=== PATIENT | male | born 1995 | race Hispanic/Latino ===

== ENCOUNTER 2019-08-22 16:22 | Emergency (ER) | payer OTHER ==
[2019-08-22] MEDS ORDERED: NA CHLORIDE 0.9% 2,000 ML ONE (17:37)
[2019-08-22] MEDS ORDERED: VANCOMYCIN 1 GM/VIAL ONE ×2 (17:37→17:39)
[2019-08-22] MEDS ORDERED: NA CHLORIDE 0.9% 250 ML ONE (17:37)
[2019-08-22 17:48] LABS: Absolute Lymphocytes (CBC) 1.4 K/uL (0.7-4.9); Basophils % 1.3 % (0-1.3); Hematocrit 34.2 % (39.6-49.0); Lymphocytes % 20.8 % (15.3-44.8); MPV 7.8 fL (7.6-11.3); RBC Red Blood Cell Count 3.76 M/uL (4.33-5.43)
[2019-08-22 17:51] LABS: Protime INR 1.15
[2019-08-22 18:11] LABS: ALT/SGPT 26 U/L (12-78); AST/SGOT 15 U/L (15-37); Albumin 2.4 g/dL (3.4-5.0); Alkaline Phosphatase 75 U/L (45-117); BUN Blood Urea Nitrogen 7 mg/dL (7-18); Bicarbonate 29 mmol/L (21-32); Bilirubin Direct < 0.1 mg/dL (0-0.2); Bilirubin Total 0.3 mg/dL (0.2-1.0); CKMB Creatine Kinase MB < 1.0 ng/mL (0.3-3.6); Creatine Phosphokinase 87 U/L (39-308); Glucose Level 91 mg/dL (74-106); Lipase 36 U/L (73-393); Potassium 3.8 mmol/L (3.5-5.1); Protein, Total 7.1 g/dL (6.4-8.2); Sodium Level 141 mmol/L (136-145)
--- NOTE | 2019-08-22 19:08 | EDPHYS ---
Physician Documentation [facility] Name: Donato Anderson Age: 24 yrs Sex: Male : 1995 Arrival Date: 08/22/2019 Time: 16:34 Bed 23 Private MD: ED Physician Lito Trejo HPI: 08/22 17:23 This 24 yrs old Male presents to ER via Ambulatory with complaints of Leg snw Swelling. 17:23 The patient presents with tenderness, redness. The complaints affect the right leg. snw Context: The problem was sustained at home, resulted from an unknown cause, the patient can partially bear weight, must have assistance, generally/morbidly obese. Associated signs and symptoms: Pertinent positives: fever. Treatment prior to arrival includes: antibiotics x 2 weeks. Severity of symptoms: At their worst the symptoms were moderate. The patient has experienced similar episodes in the past. The patient has been recently seen by a physician: the patient's primary care provider, Dr. Turner. Historical: - Allergies: 16:49 No Known Allergies; aj1 - Home Meds: 16:49 None [Active]; aj1 - PMHx: 16:49 Asthma; aj1 - PSHx: 16:49 None; aj1 - Immunization history:: Adult Immunizations up to date. - Social history:: Smoking status: Patient/guardian denies using tobacco. - Ebola Screening: : Patient denies travel to an Ebola-affected area in the 21 days before illness onset. ROS: 17:22 Constitutional: Negative for fever, chills, and weight loss, Eyes: Negative for injury, snw pain, redness, and discharge, ENT: Negative for injury, pain, and discharge, Neck: Negative for injury, pain, and swelling, Cardiovascular: Negative for chest pain, palpitations, and edema, Respiratory: Negative for shortness of breath, cough, wheezing, and pleuritic chest pain, Abdomen/GI: Negative for abdominal pain, nausea, vomiting, diarrhea, and constipation, Back: Negative for injury and pain, : Negative for injury, bleeding, discharge, and swelling, MS/Extremity: Negative for injury and deformity, Neuro: Negative for headache, weakness, numbness, tingling, and seizure, Psych: Negative for depression, anxiety, suicide ideation, homicidal ideation, and hallucinations. 17:22 Skin: Positive for cellulitis, of the lateral aspect of right calf, right calf, medial aspect of right calf and right serra. Exam: 17:18 Constitutional: This is a well developed, well nourished patient who is awake, alert, snw and in no acute distress. Head/Face: Normocephalic, atraumatic. Eyes: Pupils equal round and reactive to light, extra-ocular motions intact. Lids and lashes normal. Conjunctiva and sclera are non-icteric and not injected. Cornea within normal limits. Periorbital areas with no swelling, redness, or edema. ENT: Nares patent. No nasal discharge, no septal abnormalities noted. Tympanic membranes are normal and external auditory canals are clear. Oropharynx with no redness, swelling, or masses, exudates, or evidence of obstruction, uvula midline. Mucous membranes moist. upper lip mildly chapped Neck: Trachea midline, no thyromegaly or masses palpated, and no cervical lymphadenopathy. Supple, full range of motion without nuchal rigidity, or vertebral point tenderness. No Meningismus. Chest/axilla: Normal chest wall appearance and motion. Nontender with no deformity. No lesions are appreciated. Cardiovascular: Regular rate and rhythm with a normal S1 and S2. No gallops, murmurs, or rubs. Normal PMI, no JVD. No pulse deficits. Respiratory: Lungs have equal breath sounds bilaterally, clear to auscultation and percussion. No rales, rhonchi or wheezes noted. No increased work of breathing, no retractions or nasal flaring. Abdomen/GI: Soft, non-tender, with normal bowel sounds. No distension or tympany. No guarding or rebound. No evidence of tenderness throughout. Back: No spinal tenderness. No costovertebral tenderness. Full range of motion. MS/ Extremity: Pulses equal, no cyanosis. Neurovascular intact. Full, normal range of motion. Neuro: Awake and alert, GCS 15, oriented to person, place, time, and situation. Cranial nerves II-XII grossly intact. Motor strength 5/5 in all extremities. Sensory grossly intact. Cerebellar exam normal. Normal gait. Psych: Awake, alert, with orientation to person, place and time. Behavior, mood, and affect are within normal limits. 17:18 Skin: Appearance: normal except for affected area, cellulitis, that is moderate, well demarcated, on the lateral aspect of right calf, right calf, medial aspect of right calf and right serra, failed outpatient therapy. Vital Signs: 16:49 BP 107 / 76; Pulse 71; Resp 24; Temp 98.2; Pulse Ox 95% on R/A; Weight 206.38 kg (R); aj1 Height 5 ft. 6 in. (167.64 cm) (R); 17:09 BP 140 / 60; Pulse 75; Resp 20; Pulse Ox 95% on R/A; mh5 18:00 BP 110 / 47; Pulse 71; Resp 20; Pulse Ox 96% on R/A; rv 18:30 BP 110 / 49; Pulse 59; Resp 21; Pulse Ox 96% on R/A; rv 19:21 BP 118 / 94; Pulse 64; Resp 19; Temp 98(O); Pulse Ox 100% ; rv 16:49 Body Mass Index 73.44 (206.38 kg, 167.64 cm) aj1 MDM: 17:02 Patient medically screened. snw 18:18 Data reviewed: vital signs, nurses notes. Data reviewed: lab test result(s). snw Counseling: I had a detailed discussion with the patient and/or guardian regarding: the historical points, exam findings, and any diagnostic results supporting the discharge/admit diagnosis, lab results, radiology results. ED course: Pharmacy contacted - Pt finished Bactrim and Keflex. 08/22 17:10 Order name: Wound Culture 08/22 17:10 Order name: Basic Metabolic Panel; Complete Time: 18:12 08/22 17:10 Order name: Blood Culture Adult (2) rv 08/22 17:10 Order name: CBC with Diff; Complete Time: 18:03 08/22 17:10 Order name: Ckmb; Complete Time: 18:12 08/22 17:10 Order name: CPK; Complete Time: 18:12 08/22 17:10 Order name: Lactate; Complete Time: 18:45 08/22 17:10 Order name: LFT's; Complete Time: 18:12 08/22 17:10 Order name: Lipase; Complete Time: 18:12 08/22 17:10 Order name: Procalcitonin; Complete Time: 19:04 08/22 17:10 Order name: Protime (+inr); Complete Time: 18:26 rv 08/22 17:10 Order name: Urine Microscopic Only rv 08/22 17:10 Order name: Chest Single View XRAY; Complete Time: 19:46 rv 08/22 19:13 Order name: Urine Dipstick--Ancillary (enter results); Complete Time: 19:36 mo 08/22 17:10 Order name: Accucheck; Complete Time: 17:50 rv 08/22 17:10 Order name: Cardiac monitoring; Complete Time: 17:50 rv 08/22 17:10 Order name: EKG - Nurse/Tech; Complete Time: 17:50 rv 08/22 17:10 Order name: IV Saline Lock - Large Bore; Complete Time: 17:50 rv 08/22 17:10 Order name: Labs collected and sent; Complete Time: 17:50 rv 08/22 17:10 Order name: O2 Per Protocol; Complete Time: 17:50 rv 08/22 17:10 Order name: O2 Sat Monitoring; Complete Time: 17:50 rv 08/22 17:54 Order name: Labs - recollect needed; Complete Time: 18:36 bd Administered Medications: 17:49 Drug: vancoMYCIN 1.5 grams Route: IVPB; Rate: calculated rate; Site: right forearm; rv 19:48 Follow up: IV Status: Completed infusion rv 17:57 CANCELLED (Duplicate Order): NS 0.9% (30 ml/kg) 30 ml/kg IV at bolus once; Sepsis snw Protocol 18:00 Drug: NS 0.9% 2000 ml Route: IV; Rate: 1 bolus; Site: right forearm; rv 19:48 Follow up: IV Status: Completed infusion rv 19:18 Drug: Tetanus-Diphtheria Toxoid Adult 0.5 ml {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 Exp: rv 01/22/2020. Lot #: [id number]. } Route: IM; Site: left deltoid; 19:49 Follow up: Response: No adverse reaction rv 19:20 Drug: Clindamycin 300 mg Route: PO; rv 19:50 Follow up: Response: No adverse reaction rv 19:20 CANCELLED (Duplicate Order): Clindamycin 300 mg PO once rv Disposition: 08/23 07:24 Co-signature as Attending Physician, Lito Trejo MD I agree with the assessment and jarrod plan of care. Disposition: 08/22/19 19:06 Discharged to Home. Impression: Cellulitis of right lower limb. - Condition is Stable. - Discharge Instructions: Cellulitis, Adult, VIS, Tetanus, Diphtheria (Td) - CDC, Heat Therapy. - Prescriptions for Clindamycin HCl 300 mg Oral Capsule - take 1 capsule by ORAL route every 6 hours for 10 days; 40 capsule. - Medication Reconciliation Form, Thank You Letter, Antibiotic Education, Prescription Opioid Use form. - Follow up: Private Physician; When: 1 - 2 days; Reason: Recheck today's complaints, Continuance of care, Re-evaluation by your physician. Follow up: Emergency Department; When: As needed; Reason: Worsening of condition. Signatures: Dispatcher [employer] EDMS Roma Hare Angela, RN RN ajLito De MD MD cha Therrien, Shelly, SHANK INSPECTOR-C SHANK INSPECTOR-Csnw Melchor James RN RN rv Corrections: (The following items were deleted from the chart) 08/22 17:26 17:18 Constitutional: This is a well developed, well nourished patient who is awake, snw alert, and in no acute distress. Head/Face: Normocephalic, atraumatic. Eyes: Pupils equal round and reactive to light, extra-ocular motions intact. Lids and lashes normal. Conjunctiva and sclera are non-icteric and not injected. Cornea within normal limits. Periorbital areas with no swelling, redness, or edema. ENT: Nares patent. No nasal discharge, no septal abnormalities noted. Tympanic membranes are normal and external auditory canals are clear. Oropharynx with no redness, swelling, or masses, exudates, or evidence of obstruction, uvula midline. Mucous membranes moist. Neck: Trachea midline, no thyromegaly or masses palpated, and no cervical lymphadenopathy. Supple, full range of motion without nuchal rigidity, or vertebral point tenderness. No Meningismus. Chest/axilla: Normal chest wall appearance and motion. Nontender with no deformity. No lesions are appreciated. Cardiovascular: Regular rate and rhythm with a normal S1 and S2. No gallops, murmurs, or rubs. Normal PMI, no JVD. No pulse deficits. Respiratory: Lungs have equal breath sounds bilaterally, clear to auscultation and percussion. No rales, rhonchi or wheezes noted. No increased work of breathing, no retractions or nasal flaring. Abdomen/GI: Soft, non-tender, with normal bowel sounds. No distension or tympany. No guarding or rebound. No evidence of tenderness throughout. Back: No spinal tenderness. No costovertebral tenderness. Full range of motion. MS/ Extremity: Pulses equal, no cyanosis. Neurovascular intact. Full, normal range of motion. Neuro: Awake and alert, GCS 15, oriented to person, place, time, and situation. Cranial nerves II-XII grossly intact. Motor strength 5/5 in all extremities. Sensory grossly intact. Cerebellar exam normal. Normal gait. Psych: Awake, alert, with orientation to person, place and time. Behavior, mood, and affect are within normal limits. snw 17:57 17:10 NS 0.9% (30 ml/kg) 30 ml/kg IV at bolus once; Sepsis Protocol ordered. rv snw 17:57 17:50 NS 0.9% (30 ml/kg) 30 ml/kg IV at bolus once; Sepsis Protocol given. rv snw 17:57 17:56 NS 0.9% (30 ml/kg) 30 ml/kg IV at bolus once; Sepsis Protocol ordered. snw snw 19:20 19:19 Clindamycin 300 mg PO once ordered. rv rv 19:51 19:06 08/22/2019 19:06 Discharged to Home. Impression: Cellulitis of right lower limb. rv Condition is Stable. Forms are Medication Reconciliation Form, Thank You Letter, Antibiotic Education, Prescription Opioid Use. Follow up: Private Physician; When: 1 - 2 days; Reason: Recheck today's complaints, Continuance of care, Re-evaluation by your physician. Follow up: Emergency Department; When: As needed; Reason: Worsening of condition. snw
[2019-08-22] MEDS ORDERED: CLINDAMYCIN HCL 150 MG CAP ONE (19:16)
[2019-08-22] MEDS ORDERED: TETANUS & DIPHTHERIA TOX,ADULT 0.5 ML VIAL ONE (19:16)
[2019-08-22] MEDS ORDERED: NA CHLORIDE 0.9% 1,000 ML ONE (19:27)
[2019-08-22 19:32] LABS: Urine Blood NEGATIVE (NEG); Urine Glucose NEGATIVE (NEG); Urine Protein NEGATIVE (NEG); Urine Specific Gravity 1.015 (1.005-1.030); Urine pH 7.5 (5.0-7.0)
--- NOTE | 2019-08-22 19:39 | RAD REPORT ---
EXAM DESCRIPTION: RAD - Chest Single View - 08/22/2019 6:01 pm CLINICAL HISTORY: Cellulitis, shortness of breath COMPARISON: May 2016 TECHNIQUE: AP portable chest image was obtained 1745 hours . FINDINGS: Lung volumes are low. Portable technique, shallow inspiration and large body habitus all c ontribute to limit the examination. An acute lung parenchymal process is not seen. Heart and vasculat ure are normal. No measurable pleural effusion and no pneumothorax. No acute bony abnormality seen. N o acute aortic findings suspected. IMPRESSION: Limited chest examination without acute cardiopulmonary finding.
--- NOTE | 2019-08-22 19:52 | ER ---
Nurse's Notes [facility] Name: Donato Andesron Age: 24 yrs Sex: Male : 1995 Arrival Date: 08/22/2019 Time: 16:34 Bed 23 Private MD: Diagnosis: Cellulitis of right lower limb Presentation: 08/22 16:45 Presenting complaint: Patient states: "About 3 weeks ago, I went to Dr. Turner for aj1 redness in my foot and she gave me antibiotics, when I saw her again last week she said that I needed to come to the emergency room" Denies fever. Transition of care: patient was not received from another setting of care. Onset of symptoms was 2018. Risk Assessment: Do you want to hurt yourself or someone else? Patient reports no desire to harm self or others. Initial Sepsis Screen: Does the patient meet any 2 criteria? No. Patient's initial sepsis screen is negative. Does the patient have a suspected source of infection? Yes: Skin breakdown/wound. Care prior to arrival: None. 16:45 Method Of Arrival: Ambulatory aj 16:45 Acuity: NEFTALY 3 aj1 Triage Assessment: 16:49 General: Appears in no apparent distress. comfortable, Behavior is calm, cooperative, aj1 appropriate for age. Pain: Pain currently is 8 out of 10 on a pain scale. Neuro: Level of Consciousness is awake, alert, obeys commands. Cardiovascular: Patient's skin is warm and dry. Respiratory: Airway is patent Respiratory effort is even, unlabored, Respiratory pattern is regular, symmetrical. Historical: - Allergies: 16:49 No Known Allergies; aj1 - Home Meds: 16:49 None [Active]; aj1 - PMHx: 16:49 Asthma; aj1 - PSHx: 16:49 None; aj1 - Immunization history:: Adult Immunizations up to date. - Social history:: Smoking status: Patient/guardian denies using tobacco. - Ebola Screening: : Patient denies travel to an Ebola-affected area in the 21 days before illness onset. Screenin:25 Abuse screen: Denies threats or abuse. Denies injuries from another. Nutritional rv screening: No deficits noted. Tuberculosis screening: No symptoms or risk factors identified. Fall Risk None identified. Assessment: 18:25 General: Appears in no apparent distress. comfortable, Behavior is calm, cooperative. rv Pain: Complains of pain in right leg. Neuro: Level of Consciousness is awake, alert, obeys commands, Oriented to person, place, time, situation. Cardiovascular: Patient's skin is warm and dry. Respiratory: Airway is patent. GI: No signs and/or symptoms were reported involving the gastrointestinal system. : No signs and/or symptoms were reported regarding the genitourinary system. EENT: No signs and/or symptoms were reported regarding the EENT system. Derm: Skin with poor turgor Skin is clammy, dry, Skin temperature is warm. Musculoskeletal: Swelling present in right leg. Vital Signs: 16:49 BP 107 / 76; Pulse 71; Resp 24; Temp 98.2; Pulse Ox 95% on R/A; Weight 206.38 kg (R); aj1 Height 5 ft. 6 in. (167.64 cm) (R); 17:09 BP 140 / 60; Pulse 75; Resp 20; Pulse Ox 95% on R/A; mh5 18:00 BP 110 / 47; Pulse 71; Resp 20; Pulse Ox 96% on R/A; rv 18:30 BP 110 / 49; Pulse 59; Resp 21; Pulse Ox 96% on R/A; rv 19:21 BP 118 / 94; Pulse 64; Resp 19; Temp 98(O); Pulse Ox 100% ; rv 16:49 Body Mass Index 73.44 (206.38 kg, 167.64 cm) aj1 ED Course: 16:34 Patient arrived in ED. am2 16:48 Triage completed. aj1 16:49 Arm band placed on Patient placed in an exam room. aj1 16:58 Saadia Kyle FNP-C is PHCP. snw 16:58 Lito Trejo MD is Attending Physician. snw 17:01 Melchor James, ANGEL is Primary Nurse. rv 17:09 Patient has correct armband on for positive identification. Bed in low position. Call mh5 light in reach. Side rails up X2. Adult w/ patient. Pulse ox on. NIBP on. 17:15 Inserted saline lock: 20 gauge in right forearm, using aseptic technique. Blood rv collected. 17:15 First set of blood cultures drawn. rv 17:31 Second set of blood cultures drawn by me. rv 18:02 Chest Single View XRAY In Process Unspecified. EDMS 18:11 Lab(s) recollected, by me, sent to lab. rv 18:30 No provider procedures requiring assistance completed. rv 19:50 IV discontinued, intact, bleeding controlled, No redness/swelling at site. Pressure rv dressing applied. 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 Exp: rv 01/22/2020. Lot #: [id number]. } Route: IM; Site: left deltoid; 19:49 Follow up: Response: No adverse reaction rv 19:20 Drug: Clindamycin 300 mg Route: PO; rv 19:50 Follow up: Response: No adverse reaction rv 19:20 CANCELLED (Duplicate Order): Clindamycin 300 mg PO once rv Outcome: 19:06 Discharge ordered by . snw 19:21 Discharged to home ambulatory, with family. rv 19:21 Condition: good 19:21 Discharge instructions given to patient, family, Instructed on discharge instructions, follow up and referral plans. medication usage, Demonstrated understanding of instructions, follow-up care, medications, wound care. 19:22 Prescriptions given X 1. rv 19:51 Patient left the ED. rv Signatures: Dispatcher [employer] EDSabrina Poole RN RN aj1 Saadia Kyle FNP-C [employer]-Radha Hinojosa Winsome Degroot Ronaldo, RN RN rv Corrections: (The following items were deleted from the chart) 17:56 17:50 NS 0.9% (30 ml/kg) 30 ml/kg IV at bolus in right forearm rv snw
[2019-08-22 19:54] LABS: Urine Bacteria <20 /HPF (NONE SEEN); Urine Culture Reflex Order NOT NEEDED; Urine RBC <5 /HPF (NONE SEEN)
[2019-08-22 21:05] VITALS: BP 118/94; TEMP 98; O2SAT 100
--- NOTE | 2019-08-23 12:22 | EKG ---
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
--- OUTSIDE RECORDS SUMMARY | 2019-08-28 21:46 | XMS REPORT ---
:1995 Author Organization [employer] Care Team Providers Name Role Phone Turner, Na Provider Role Unavailable Allergies, Adverse Reactions, Alerts Substance Reaction Event Type N.K.D.A. Info Not Available Non Drug Allergy Problems Problem Type Condition Code Onset Dates Condition Status Problem Acute non intractable tension-type G44.209 Active headache Problem Morning headache R51 Active Problem BMI 70 and over, adult Z68.45 Active Problem Dry eyes H04.123 Active Assessment Cellulitis of right leg L03.115 Active Problem Severe major depression F32.2 Active Assessment Paresthesia of skin R20.2 Active Assessment Anesthesia of skin R20.0 Active Problem Paresthesia of skin R20.2 Active Problem Blood tests for routine general Z00.00 Active physical examination Problem Snoring R06.83 Active Problem Adult general medical exam Z00.00 Active Problem Essential hypertension I10 Active Problem Vitamin D deficiency E55.9 Active Problem Allergic rhinitis, seasonal J30.2 Active Problem Morbid obesity E66.01 Active Problem Depression, unspecified depression F32.9 Active type Problem Daytime somnolence R40.0 Active Problem Obstructive sleep apnea G47.33 Active Problem Chronic fatigue R53.82 Active Assessment BMI 70 and over, adult Z68.45 Active Problem Depression with anxiety F41.8 Active Problem Obstructive sleep apnea syndrome G47.33 Active Medications Medication Code Code Instructions Start End Status Dosage System Date Date Celexa [facility] 70886437059 20 MG Orally Active 1 tablet Once a day at bedtime Ranitidine HCl ND 04031679612 150 MG Orally Active 1 capsule Twice a day at bedtime Zyrtec Allergy ND 24454666127 10 MG Orally Active 1 tablet Once a day Multivitamin ND 47536491901 - Orally Active not Adult defined Wellbutrin SR ND 06927190949 100 MG Orally Active 1 tablet Once a day in am Keflex ND 65424778137 500 MG Orally Active 1 capsule every 12 hrs Saxenda ND 63330891165 18 MG/3ML Active not Subcutaneous defined Ergocalciferol NDC 11833160573 23671 UNIT Active 1 capsule Orally once a week x 12 weeks Ventolin HFA [facility] 73016240235 108 (90 Base) Dec 01, Active 2 puffs as MCG/ACT 2017 needed Inhalation every 6 hrs Lisinopril-Hydroc [facility] 00937739671 10-12.5 MG Active 1 tablet hlorothiazide Orally Once a day Bactrim DS [facility] 54554871998 800-160 MG Active 1 tablet Orally Twice a day Results No Known Results Summary Purpose eClinicalWorks Submission
== END 2019-08-22 19:51 | disposition home or self-care (01) ==
LOC: ER 16:22
DX: L03.115 Cellulitis of right lower limb (principal); Z23 Encounter for immunization
CPT/HCPCS: 96365; 93005; 87040 ×2; 87070; 85025; 80048; 36415; 82550; 87205; 85610; 80076; 83605; 82553; 83690; 84145; 71045; 90471; 90714; 99284; 96366; J7030 ×3; 81003; 81015

== ENCOUNTER 2020-06-20 15:10 | Inpatient (IN) | payer OTHER ==
--- OUTSIDE RECORDS SUMMARY | 2020-06-20 15:13 | XMS REPORT | Continuity of Care Document ---
:1995 Author Organization [facility] t Address [address] [place] [address] Care Team Providers Name Role Phone Unavailable Unavailable Unavailable Problems Condition Condition Condition Status Onset Resolution Last Treating Co mments Source Name Details Category Date Date Treatment Clinician Date Morbid Morbid Problem Active [facility] obesity obesity [facility] Clinics Morning Morning Problem Active [facility] headache headache [facility] Vitamin D Vitamin D Problem Active [facility] deficiency deficiency Kaitlynn kes - Memoria l [facility] Adult Adult Problem Active [facility] general general [facility] medical medical Memoria exam exam l [facility] Chronic Chronic Problem Active [facility] fatigue fatigue [facility] Clinics Obstructiv Obstructiv Problem Active [facility] e sleep e sleep [facility] - apnea apnea Memoria syndrome syndrome l [facility]ics Snoring Snoring Problem Active [facility]ics BMI 70 and BMI 70 and Problem Active [facility] over, over, [facility] - adult adult [facility]oria [facility] ent Clinics Acute non Acute non Problem Active [facility] intractabl intractabl Kaitlynn kes - e e Memoria tension-ty tension-ty l pe pe [facility] headache headache ent Clinics Daytime Daytime Problem Active [facility] somnolence somnolence Kaitlynn kes - Memoria l [facility] Allergic Allergic Problem Active [facility] rhinitis, rhinitis, Luke s - seasonal seasonal Memori a l [facility] Clinics Depression Depression Problem Active [facility] , , [facility] - unspecifie unspecifie Me moria d d l depression depression Ou tpati type type ent Clinics Depression Depression Problem Active [facility] with with [facility] - anxiety anxiety Memoria [facility] ent Clinics Essential Essential Problem Active [facility] hypertensi hypertensi Kaitlynn kes - on on [facility]oria [facility] ent Clinics Severe Severe Problem Active [facility] major major [facility] - depression depression Me moria l [facility] Clinics Dry eyes Dry eyes Problem Active [facility] Paresthesi Paresthesi Problem Active [facility] a of skin a of skin Luke s - Memoria l [facility] Clinics Venous Venous Problem Active [facility] stasis stasis [facility]ukes - dermatitis dermatitis Me moria of right of right l lower lower [facility] extremity extremity ent Clinics Peripheral Peripheral Problem Active [facility] vascular vascular [facility] - disease disease Memoria l [facility] Cough Cough Diagnosis Active [facility] Allergies, Adverse Reactions, Alerts This patient has no known allergies or adverse reactions. Medications Ordered Filled Start Stop Current Ordering Indication Dosage Frequency Signature Comments Components Source Medication Medication Date Date Medication? Clinician (SIG) Name Name Wellbutrin Wellbutrin Yes Maile [address] [facility] [address] SR SR 7-18 [place] in am [facility] - 00:00: Memoria 00 l [facility] Ergocalcife Ergocalcife Yes Maile [address] [address] rol rol 2-28 [place] [facility] - 00:00: Memoria 00 l [facility] Ventolin Ventolin Yes Maile [address] HFA HFA 2-13 [place] needed [facility] - 00:00: Memoria 00 l [facility] Clinics Celexa Celexa Yes Maile [address] [facility] [place] at bedtime [facility] - [facility] Yes Maile [address] [facility] Allergy [facility]ergy [place] [facility] l [facility] Multivitami Multivitami Yes Maile not [facility] n Adult n Adult [place] defined [facility] Yes Maile not [facility] [place] defined [facility] - [facility] Lisinopril- Lisinopril- Yes Maile [address] [facility] [address] Hydrochloro Hydrochloro [place] [facility] - thiazide thiazide [facility] Ranitidine Ranitidine Yes Maile [address] [address] HCl HCl [place] at bedtime [facility] - [facility] ent [facility] Immunizations Ordered Filled Immunization Date Status Comments [facility] e Immunization Name Name Flucelvax - Flucelvax - 2018-12-[address] [facility] - multidose vial multidose vial 00:00:00 [facility] Outpatient Clinics Procedures This patient has no known procedures. Encounters Start End Encounter Admission Attending Care Care Encounter Source Date/Time Date/Time Type Type Clinicians Facility Department ID 2020-04-24 2020-04-24 [facility] [id number] 14:00[facility]00 14:00:00 [facility] Medicine Outpati ent Clinics 2020-04-23 2020-04-23 [facility] [id number] [address] 16:20:00 16:20:00 [facility] Medicine Outpati ent Clinics 2020-04-23 2020-04-23 [facility] [id number] 09:55:00 09:55:00 [facility] Medicine Outpati ent Clinics 2020-04-13 2020-04-13 [facility] [id number] 15:15:00 15:15:00 [place] [facility] Medicine Outpati ent Clinics 2020-04-09 2020-04-09 [facility] [id number] 14:00:00 14:00:00 [place] [facility] Medicine Outpati ent Clinics 2020-02-24 2020-02-24 [facility] [id number] [address] 16:06:00 16:06:00 [place] [facility] Medicine Outpati ent Clinics 2019-08-31 2019-08-31 [facility] [id number] [address] 11:40:00 11:40:00 [place] [facility] Medicine Outpati ent Clinics 2019-08-12 2019-08-12 [facility] [id number] 08:00:00 08:00:00 [place] [facility] Medicine Outpati ent Clinics 2019-08-02 2019-08-02 [facility] [id number] 14:20:00 14:20:00 t [place] [facility] Medicine Outpati ent Clinics 2019-07-25 2019-07-25 [facility] [id number] 14:20:00 14:20:00 [place] [facility] Medicine Outpati ent Clinics 2019-05-05 2019-05-05 [facility] [id number] 13[facility]20:00 13:20:00 t [place] [facility] Medicine Outpati ent Clinics 2019-01-31 2019-01-31 [facility] [id number] [address] 15:00:00 15:00:00 t [place] [facility] Medicine Outpati ent Clinics 2018-12-16 2018-12-16 [facility] [id number] 14[facility]15:00 14:15:00 t [place] [facility] Medicine Outpati ent Clinics 2018-11-01 2018-11-01 [facility] [id number] 09:00:00 09:00:00 t [place] [facility] Medicine Outpati ent Clinics 2018-06-18 2018-06-18 [facility] [id number] 14:40:00 14:40:00 t [place] [facility] Medicine Outpati ent Clinics 2018-04-19 2018-04-19 [facility] [id number] 10:30:00 10:30:00 t [place] [facility] Medicine Outpati ent Clinics Results This patient has no known results.
--- OUTSIDE RECORDS SUMMARY | 2020-06-20 15:14 | XMS REPORT ---
:1995 Author Organization [employer] Care Team Providers Name Role Phone Maile Hairstno Provider Role Unavailable Allergies No Known Allergies Problems Problem Type Condition Code Onset Dates Condition Statu s Problem Morning headache R51 Active Problem Blood tests for routine general Z00.00 Active physical examination Problem Snoring R06.83 Active Problem Venous stasis dermatitis of right I87.2 Active lower extremity Problem Morbid obesity E66.01 Active Problem Paresthesia of skin R20.2 Active Assessment Cough R05 Active Problem Peripheral vascular disease I73.9 Active Problem Adult general medical exam Z00.00 A ctive Problem Essential hypertension I10 Activ e Problem Dry eyes H04.123 Active Problem Severe major depression F32.2 Acti ve Problem Obstructive sleep apnea G47.33 Acti ve Problem Depression with anxiety F41.8 Acti ve Problem Vitamin D deficiency E55.9 Active Problem Allergic rhinitis, seasonal J30.2 Active Problem Chronic fatigue R53.82 Active Problem Obstructive sleep apnea syndrome G47.33 Active Problem Depression, unspecified depression F32.9 Active type Problem Acute non intractable tension-type G44.209 Active headache Problem Daytime somnolence R40.0 Active Problem BMI 70 and over, adult Z68.45 Activ e Medications Medication Code Code Instructions Start End Status Dosage System Date Date Celexa [facility] 75148315689 20 MG Orally Active 1 table t Once a day at bedtime Ergocalciferol [facility] 15855743304 00971 UNIT Active 1 capsule Orally once a week x 12 weeks Multivitamin [facility] 38030899630 - Orally Active not Adult defined Lisinopril-Hydroc ND 54926249039 20-25 MG Orally Ac tive 1 tablet hlorothiazide Once a day Ranitidine HCl ND 77377023462 150 MG Orally Active 1 capsule Twice a day at bedtime Ventolin HFA [facility] 70506180354 108 (90 Base) Dec 01, Active 2 puffs as MCG/ACT 2018 needed Inhalation every 6 hrs Saxenda [facility] 30867628817 18 MG/3ML Active not Subcutaneous defined Zyrtec Allergy [facility] 45293766809 10 MG Orally Active 1 tablet Once a day Wellbutrin SR [facility] 20559459718 100 MG Orally Active 1 tablet Once a day in am Results No Known Results Summary Purpose [employer]Works Submission
--- OUTSIDE RECORDS SUMMARY | 2020-06-20 15:14 | XMS REPORT ---
:1995 Author Organization [employer] Care Team Providers Name Role Phone Turner, Na Provider Role Unavailable Allergies No Known Allergies Problems Problem Type Condition Code Onset Dates Condition Statu s Problem Morning headache R51 Active Problem Blood tests for routine general Z00.00 Active physical examination Problem Snoring R06.83 Active Problem Venous stasis dermatitis of right I87.2 Active lower extremity Problem Morbid obesity E66.01 Active Problem Paresthesia of skin R20.2 Active Problem Peripheral vascular disease I73.9 Active [...] and over, adult Z68.45 Activ e Medications No Known Medications Results No Known Results Summary Purpose [employer]Works Submission
--- OUTSIDE RECORDS SUMMARY | 2020-06-20 15:14 | XMS REPORT ---
:1995 Author Organization [employer] Care Team Providers Name Role Phone Yovanny Maile Provider Role Unavailable Allergies, Adverse Reactions, Alerts [...] Problem Paresthesia of skin R20.2 Active Assessment Contact with and (suspected) Z20.828 Active exposure to other viral communicable diseases Problem Peripheral vascular disease I73.9 Active Problem [...] Start End Status Dosage System Date Date Saxenda [facility] 30888131171 18 MG/3ML Active not Subcutaneous defined Ergocalciferol [facility] 86197812428 89658 UNIT Active 1 capsule Orally once a week x 12 weeks Wellbutrin SR ND 20224824423 100 MG Orally Active 1 tablet Once a day in am Ventolin HFA [facility] 58283657912 108 (90 Base) Dec 01, Active 2 puffs as MCG/ACT 2018 needed Inhalation every 6 hrs Zyrtec Allergy [facility] 11694297119 10 MG Orally Active 1 tablet Once a day Lisinopril-Hydroc [facility] 89105514025 20-25 MG Orally Ac tive 1 tablet hlorothiazide Once a day Celexa [facility] 08697105596 20 MG Orally Active 1 table t Once a day at bedtime Ranitidine HCl [facility] 47357932740 150 MG Orally Active 1 capsule Twice a day at bedtime Multivitamin [facility] 46726182478 - Orally Active not Adult defined Results Name Result Date Reference Range Unit Abnormali ty Flag Inpatient Summary Purpose [employer]ClinicalWorks Submission
--- OUTSIDE RECORDS SUMMARY | 2020-06-20 15:14 | XMS REPORT ---
:1995 Author Organization [employer] Care Team Providers Name Role Phone Turner, Shaista Provider Role Unavailable Allergies, Adverse Reactions, Alerts Substance Reaction Event Type N.K.D.A. Info Not Available Non Drug Allergy Problems Problem Type Condition Code Onset Dates Condition Statu s Assessment BMI 70 and over, adult Z68.45 Activ e Assessment Allergic rhinitis, seasonal J30.2 Active Assessment Vitamin D deficiency E55.9 Active Assessment Obstructive sleep apnea syndrome G47.33 Active Assessment Lower extremity edema R60.0 Active Problem Acute non intractable tension-type G44.209 Active headache Assessment Venous stasis dermatitis of right I87.2 Active lower extremity Problem BMI 70 and over, adult Z68.45 Activ e Assessment Severe major depression F32.2 Acti ve Problem Morning headache R51 Active Problem Blood tests for routine general Z00.00 Active physical examination Problem Snoring R06.83 Active Problem Venous stasis dermatitis of right I87.2 Active lower extremity Problem Paresthesia of skin R20.2 Active Problem Morbid obesity E66.01 Active Problem Peripheral vascular disease I73.9 Active Assessment Essential hypertension I10 Activ e Problem Adult general medical exam Z00.00 A [...] Active type Problem Daytime somnolence R40.0 Active Medications Medication Code Code Instructions Start End Status Dosage System Date Date Zyrtec Allergy [facility] 52397471962 10 MG Orally Active 1 tablet Once a day Multivitamin [facility] 58227670146 - Orally Active not Adult defined Wellbutrin SR ND 22588623392 100 MG Orally Active 1 tablet Once a day in am Ergocalciferol ND 22557458407 93623 UNIT Active 1 capsule Orally once a week x 12 weeks Saxenda [facility] 93469181897 18 MG/3ML Active not Subcutaneous defined Celexa [facility] 92673936631 20 MG Orally Active 1 table t Once a day at bedtime Lisinopril-Hydroc [facility] 47316305433 20-25 MG Orally Ac tive 1 tablet hlorothiazide Once a day Ventolin HFA [facility] 66730757280 108 (90 Base) Dec 01, Active 2 puffs as MCG/ACT 2018 needed Inhalation every 6 hrs Ranitidine HCl [facility] 41648968549 150 MG Orally Active 1 capsule Twice a day at bedtime Results No Known Results Summary Purpose eClinicalWorks Submission
[2020-06-20 16:20] LABS: Absolute Lymphocytes (CBC) 1.1 K/uL (0.7-4.9); Basophils % 1.1 % (0-1.3); Hematocrit 32.4 % (39.6-49.0); MPV 9.2 fL (7.6-11.3); RBC Red Blood Cell Count 3.62 M/uL (4.33-5.43)
[2020-06-20 16:35] LABS: BUN Blood Urea Nitrogen 10 mg/dL (7-18); Bicarbonate 29 mmol/L (21-32); Glucose Level 93 mg/dL (74-106); Potassium 3.2 mmol/L (3.5-5.1); Sodium Level 138 mmol/L (136-145)
[2020-06-20] MEDS ORDERED: VANCOMYCIN/NS 1 gm 1 GM/250 ML BAG IVPB ONE (17:00)
--- NOTE | 2020-06-20 17:11 | EDPHYS ---
Physician Documentation [facility] Name: Donato Anderson Age: 25 yrs Sex: Male : 1995 Arrival Date: 06/20/2020 Time: 15:13 Bed 5 Private MD: Shaista Turner ED Physician Jin Heart HPI: 06/20 15:57 This 25 yrs old Male presents to ER via Ambulatory with complaints of Leg jr8 Swelling. 15:57 the patient presents with a swollen area of the right leg. Description: erythematous, jr8 swollen, warm. Onset: The symptoms/episode began/occurred gradually, 2 day(s) ago. Possible cause(s): unknown. Associated signs and symptoms: The patient has no apparent associated signs or symptoms. Modifying factors: the symptoms are alleviated by nothing, the symptoms are aggravated by nothing. Severity of symptoms: At their worst the symptoms were moderate, in the emergency department the symptoms are unchanged. The patient has not experienced similar symptoms in the past. The patient has been recently seen by a physician:. Patient seen by PCP and put on Abx for infected lower right leg. Stated that despite being on Abx continues to swell and mc . Historical: - Allergies: 15:29 No Known Allergies; ll1 - PMHx: 15:29 Asthma; ll1 15:29 Sleep Apnea; ll1 - PSHx: 15:29 None; ll1 - Immunization history:: Flu vaccine is up to date. - Social history:: Smoking status: Patient denies any tobacco usage or history of. Patient/guardian denies using alcohol, street drugs. ROS: 15:57 Eyes: Negative for injury, pain, redness, and discharge, ENT: Negative for injury, jr8 pain, and discharge, Neck: Negative for injury, pain, and swelling, Cardiovascular: Negative for chest pain, palpitations, and edema, Respiratory: Negative for shortness of breath, cough, wheezing, and pleuritic chest pain, Abdomen/GI: Negative for abdominal pain, nausea, vomiting, diarrhea, and constipation, Back: Negative for injury and pain, Neuro: Negative for headache, weakness, numbness, tingling, and seizure. 15:57 MS/extremity: Positive for erythema, pain, swelling, tenderness, warmth, of the right leg. Exam: 15:57 Eyes: Pupils equal round and reactive to light, extra-ocular motions intact. Lids and jr8 lashes normal. Conjunctiva and sclera are non-icteric and not injected. Cornea within normal limits. Periorbital areas with no swelling, redness, or edema. ENT: Nares patent. No nasal discharge, no septal abnormalities noted. Tympanic membranes are normal and external auditory canals are clear. Oropharynx with no redness, swelling, or masses, exudates, or evidence of obstruction, uvula midline. Mucous membranes moist. Neck: Trachea midline, no thyromegaly or masses palpated, and no cervical lymphadenopathy. Supple, full range of motion without nuchal rigidity, or vertebral point tenderness. No Meningismus. Cardiovascular: Regular rate and rhythm with a normal S1 and S2. No gallops, murmurs, or rubs. Normal PMI, no JVD. No pulse deficits. Respiratory: Lungs have equal breath sounds bilaterally, clear to auscultation and percussion. No rales, rhonchi or wheezes noted. No increased work of breathing, no retractions or nasal flaring. Abdomen/GI: Soft, non-tender, with normal bowel sounds. No distension or tympany. No guarding or rebound. No evidence of tenderness throughout. Back: No spinal tenderness. No costovertebral tenderness. Full range of motion. MS/ Extremity: Pulses equal, no cyanosis. Neurovascular intact. Full, normal range of motion. Neuro: Awake and alert, GCS 15, oriented to person, place, time, and situation. Cranial nerves II-XII grossly intact. Motor strength 5/5 in all extremities. Sensory grossly intact. Cerebellar exam normal. Normal gait. 15:57 Skin: cellulitis, that is moderate, confluent, well demarcated, on the right lower leg from the ankle extending to distal knee that is circumfrential . Vital Signs: 15:26 BP 143 / 67; Pulse 83; Resp 18; Temp 98.8; Pulse Ox 94% on R/A; Weight 272.16 kg; ll1 Height 5 ft. 6 in. (167.64 cm); Pain 6/10; 16:18 BP 120 / 73; Pulse 75; Resp 20; Pulse Ox 92% on R/A; jr10 18:34 BP 107 / 66; Pulse 85; Resp 18; Pulse Ox 95% on R/A; jr10 20:00 BP 125 / 78; Pulse 85; Resp 18; Pulse Ox 93% on R/A; 15:26 Body Mass Index 96.84 (272.16 kg, 167.64 cm) ll1 MDM: 15:40 Patient medically screened. 8 15:57 Data reviewed: vital signs, nurses notes, lab test result(s), radiologic studies, 8 ultrasound. Data interpreted: Pulse oximetry: on room air is 95 %. Interpretation: normal. Counseling: I had a detailed discussion with the patient and/or guardian regarding: the historical points, exam findings, and any diagnostic results supporting the discharge/admit diagnosis, lab results, radiology results, the need for further work-up and treatment in the hospital. 06/20 15:40 Order name: CBC with Diff; Complete Time: 16:28 [facility] 06/20 15:40 Order name: Basic Metabolic Panel; Complete Time: 16:40 [facility] 06/20 15:40 Order name: Blood Culture Adult (2) [facility] 06/20 15:40 Order name: Procalcitonin; Complete Time: 17:10 [facility] 06/20 15:45 Order name: US Extremity Venous Unilateral Ltd; Complete Time: 17:34 [facility] 06/20 15:40 Order name: IV; Complete Time: 16:05 [facility] Administered Medications: 16:14 Drug: Cefepime 1 grams Route: IVPB; Rate: 200 ml/hr; Infused Over: 30 mins; Site: right jr10 forearm; 17:30 Follow up: Response: No adverse reaction; IV Status: Completed infusion [facility] 20:18 Follow up: Response: No adverse reaction; IV Status: Completed infusion 17:16 Drug: Potassium Chloride 40 mEq Route: PO; [facility] 18:29 Follow up: Response: No adverse reaction [facility] 20:18 Follow up: Response: No adverse reaction 17:30 Drug: vancoMYCIN 1 grams Route: IVPB; Infused Over: 2 hrs; Site: right forearm; [facility] 20:18 Follow up: Response: No adverse reaction; IV Status: Completed infusion Disposition: 06/21 17:08 Co-signature as Attending Physician, Jin Heart MD I agree with the assessment and kdr plan of care. Disposition: 06/20/20 17:11 Hospitalization ordered by Teo Suresh for Inpatient Admission. Preliminary diagnosis is Cellulitis of right lower limb. - Bed requested for Telemetry/MedSurg (Inpatient). - Status is Inpatient Admission. wh - Condition is Stable. - Problem is new. - Symptoms have improved. Signatures: Dispatcher [employer] EDMS Jin Heart MD MD [facility] Francisco Barraza PA PA jr8 Marilou Ashraf, RN RN tl1 Cassie Washington, RN RN [place], Winsy Dusty David RN RN ll1 Kaitlin Tripp, RN RN jr10 Corrections: (The following items were deleted from the chart) 06/20 18:39 17:11 Hospitalization Ordered by Teo Suresh MD for Inpatient Admission. Preliminary hb diagnosis is Cellulitis of right lower limb. Bed requested for Telemetry/MedSurg (Inpatient). Status is Inpatient Admission. Condition is Stable. Problem is new. Symptoms have improved. jr8 19:25 18:39 06/20/2020 17:11 Hospitalization Ordered by Teo Suresh MD for Inpatient tl1 Admission. Preliminary diagnosis is Cellulitis of right lower limb. Bed requested for Telemetry/MedSurg (Inpatient). Status is Inpatient Admission. Condition is Stable. Problem is new. Symptoms have improved. hb 20:59 19:25 06/20/2020 17:11 Hospitalization Ordered by Teo Suresh MD for Inpatient Admission. Preliminary diagnosis is Cellulitis of right lower limb. Bed requested for Telemetry/MedSurg (Inpatient). Status is Inpatient Admission. Condition is Stable. Problem is new. Symptoms have improved. tl1
--- NOTE | 2020-06-20 17:11 | ER ---
Nurse's Notes [facility] Name: Donato Anderson Age: 25 yrs Sex: Male : 1995 Arrival Date: 06/20/2020 Time: 15:13 Bed 5 Private MD: Shaista Turner Diagnosis: Cellulitis of right lower limb Presentation: 06/20 15:26 Chief complaint: Patient states: RLE redness, pain, and swelling for 3 days. + chills, ll1 but no fever at home. Slight cough with N/V for 3 days. Last covid test negative.. Coronavirus screen: Client denies travel out of the [place] in the last 14 days. At this time, the client does not indicate any symptoms associated with coronavirus-19. The client reports previous COVID testing was negative. Initial Sepsis Screen: Does the patient meet any 2 criteria? No. Patient's initial sepsis screen is negative. Risk Assessment: Do you want to hurt yourself or someone else? Patient reports no desire to harm self or others. Onset of symptoms was June 18, 2020. 15:26 Method Of Arrival: Ambulatory 1 15:26 Acuity: NEFTALY 3 ll1 19:05 Ebola Screen: Patient negative for fever greater than or equal to 101.5 degrees wh Fahrenheit, and additional compatible Ebola Virus Disease symptoms Patient denies exposure to infectious person. Initial Sepsis Screen: Does the patient have a suspected source of infection? Yes: Skin breakdown/wound. Historical: - Allergies: 15:29 No Known Allergies; ll1 - PMHx: 15:29 Asthma; ll1 15:29 Sleep Apnea; ll1 - PSHx: 15:29 None; ll1 - Immunization history:: Flu vaccine is up to date. - Social history:: Smoking status: Patient denies any tobacco usage or history of. Patient/guardian denies using alcohol, street drugs. Screenin:00 Abuse screen: Denies threats or abuse. Denies injuries from another. Nutritional jr10 screening: No deficits noted. Tuberculosis screening: No symptoms or risk factors identified. Fall Risk No fall in past 12 months (0 pts). No secondary diagnosis (0 pts). IV access (20 points). Ambulatory Aid- None/Bed Rest/Nurse Assist (0 pts). Gait- Weak (10 pts.). Mental Status- Oriented to own ability (0 pts). Assessment: 16:00 General: Appears in no apparent distress. Behavior is calm, cooperative, appropriate jr10 for age. Pain: Complains of pain in lateral aspect of right calf, right calf, medial aspect of right calf and right serra Pain does not radiate. Pain began 2-3 days ago. Is continuous. Neuro: No deficits noted. Cardiovascular: No deficits noted. Denies chest pain, Edema is 2+ to right midcalf, right ankle, right foot and right toes Rhythm is regular. Respiratory: Reports cough that is dry, Airway is patent Respiratory effort is even, unlabored, Respiratory pattern is regular, symmetrical. GI: No deficits noted. No signs and/or symptoms were reported involving the gastrointestinal system. : No deficits noted. No signs and/or symptoms were reported regarding the genitourinary system. EENT: No deficits noted. No signs and/or symptoms were reported regarding the EENT system. Derm: Skin has blisters on to right lower leg with serosanguinous fluid drainage noted Skin is dry, Skin is red, Skin temperature is warm. Musculoskeletal: No deficits noted. No signs and/or symptoms reported regarding the musculoskeletal system. 16:34 Reassessment: US at bedside. jr10 19:05 General: Appears in no apparent distress. Behavior is calm, cooperative, appropriate wh for age. Pain: Complains of pain in right leg. Neuro: Level of Consciousness is awake, alert, obeys commands, Oriented to person, place, time, situation, Appropriate for age. Cardiovascular: Heart tones S1 S2. Respiratory: Airway is patent Respiratory effort is even, unlabored, Respiratory pattern is regular, symmetrical, Breath sounds are clear bilaterally. GI: Abdomen is round obese. : No signs and/or symptoms were reported regarding the genitourinary system. EENT: No signs and/or symptoms were reported regarding the EENT system. Derm: Skin is red. Musculoskeletal: Circulation, motion, and sensation intact. 20:17 Reassessment: Patient appears in no apparent distress at this time. No changes from previously documented assessment. Patient and/or family updated on plan of care and expected duration. Pain level reassessed. Patient is alert, oriented x 3, equal unlabored respirations, skin warm/dry/pink. Vital Signs: 15:26 BP 143 / 67; Pulse 83; Resp 18; Temp 98.8; Pulse Ox 94% on R/A; Weight 272.16 kg; ll1 Height 5 ft. 6 in. (167.64 cm); Pain 6/10; 16:18 BP 120 / 73; Pulse 75; Resp 20; Pulse Ox 92% on R/A; jr10 18:34 BP 107 / 66; Pulse 85; Resp 18; Pulse Ox 95% on R/A; jr10 20:00 BP 125 / 78; Pulse 85; Resp 18; Pulse Ox 93% on R/A; wh 15:26 Body Mass Index 96.84 (272.16 kg, 167.64 cm) ll1 ED Course: 15:13 Patient arrived in ED. mr 15:13 Shaista Turner MD is Private Physician. mr 15:28 Triage completed. ll1 15:30 Arm band placed on Patient placed in an exam room, on a stretcher. ll1 15:40 Francisco Barraza PA is PHCP. jr8 15:40 Jin Heart MD is Attending Physician. jr8 15:44 Kaitlin Tripp, ANGEL is Primary Nurse. jr10 16:00 Inserted saline lock: 20 gauge in right forearm, using aseptic technique. IV is patent, jr10 is intact, with good blood return, Flushed. 16:17 Patient has correct armband on for positive identification. Bed in low position. Call jr10 light in reach. Side rails up X2. Pulse ox on. NIBP on. 16:17 No provider procedures requiring assistance completed. jr10 17:09 US Extremity Venous Unilateral Ltd In Process Unspecified. EDMS 17:10 Teo Suresh MD is Hospitalizing Provider. jr8 18:51 Primary Nurse role handed off by Kaitlin Tripp, ANGEL 19:24 Report given to ANGEL Munoz. jr10 20:15 Tammy Armas is Primary Nurse. 20:19 Patient admitted, IV remains in place. Administered Medications: 16:14 Drug: Cefepime 1 grams Route: IVPB; Rate: 200 ml/hr; Infused Over: 30 mins; Site: right jr10 forearm; 17:30 Follow up: Response: No adverse reaction; IV Status: Completed infusion jr10 20:18 Follow up: Response: No adverse reaction; IV Status: Completed infusion 17:16 Drug: Potassium Chloride 40 mEq Route: PO; jr10 18:29 Follow up: Response: No adverse reaction jr10 20:18 Follow up: Response: No adverse reaction 17:30 Drug: vancoMYCIN 1 grams Route: IVPB; Infused Over: 2 hrs; Site: right forearm; jr10 20:18 Follow up: Response: No adverse reaction; IV Status: Completed infusion Outcome: 17:11 Decision to Hospitalize by Provider. jr8 18:39 Patient left the ED. 20:18 Admitted to Med/surg accompanied by tech, via stretcher, room 224, with chart, Report called to Gaby Escobedo RN 20:18 Condition: stable 20:18 Instructed on the need for admit. 20:59 Patient left the ED. Signatures: Dispatcher [employer] EDEmma Bass, RN Mariyln Linder mr Francisco Barraza PA PA jr8 Cassie Washington RN RN [facility], [facility] Dusty David RN ANGEL 1 Kaitlin Tripp RN RN jr10
[2020-06-20] MEDS ORDERED: POTASSIUM CL SA 10 MEQ TAB PO ONE (17:14)
--- NOTE | 2020-06-20 17:27 | RAD REPORT ---
EXAM DESCRIPTION: USExtcarmine Venous Uni Ltd06/20/2020 5:17 pm CLINICAL HISTORY: Right leg pain and swelling. COMPARISON: None. FINDINGS: Limited evaluation secondary body habitus. Right common femoral, superficial femoral, popliteal and right posterior tibial veins demonstrate pha sic signal. Portions of veins are compressible. IMPRESSION: No gross evidence of deep venous thrombosis involving the right lower extremity.
--- NOTE | 2020-06-20 18:48 | P.HP ---
Certification for Inpatient Patient admitted to: Inpatient With expected LOS: >2 Midnights Practitioner: I am a practitioner with admitting privileges, knowledge of patient current condition, hospital course, and medical plan of care. Services: Services provided to patient in accordance with Admission requirements found in Title 42 Section 412.3 of the Code of Federal Regulations Patient History Date of Service: 06/20/20 Primary Care Provider: Dr. Turner Reason for admission: RLE cellulitis, failed outpatient therapy History of Present Illness: Morbidly obese 25-year-old presents to the ED with 2 days of progressively worsening right lower leg swelling, redness, and burning pain. He reports his mother 1st noticed this 2 days ago. He states he took an antibiotic, but is unclear what the name was. I spoke with his mother on the phone and she stated that it was penicillin from [place], left over from 3 months ago. He reports the pain is a burning sensation and worse in his posterior upper calf. He states this is the 1st skin infection that he has had like this. He reports no past medical history, no past surgical history. No recent hospitalizations. No fevers/chills, no shortness of breath, no chest pain, and no abdominal pain, no change in urinary/bowel habits. In the ED lab work was notable for mild hypokalemia (3.2) and an elevated pro calcitonin at 3.11, lower extremity ultrasound was negative for DVT. He was given a dose of IV vancomycin. Allergies No Known Allergies Allergy (Unverified 06/19/16 03:31) Home medications list reviewed: Yes - Past Medical/Surgical History Past Medical History: Patient denies medical history Past Surgical History: Patient denies surgical history - Family History Family History: Reviewed- Non-Contributory - Social History Smoking Status: Never smoker Alcohol use: No CD- Drugs: No Review of Systems 10-point ROS is otherwise unremarkable Physical Examination - Physical Exam General: Alert, In no apparent distress, Obese HEENT: PERRLA, Mucous membr. moist/pink, EOMI, Sclerae nonicteric Neck: Supple, No LAD Respiratory: Clear to auscultation bilaterally, Normal air movement Cardiovascular: Regular rate/rhythm, Normal S1 S2 Gastrointestinal: Soft and benign, Non-distended, No tenderness Integumentary: Erythema (Right lower extremity up to knee), Warmth, Other (Skin with appearance of some venous stasis, very shallow skin breaks, no ulcerations. Positive induration along his posterior calf) Neurological: Normal speech, Normal affect - Studies Laboratory Data (last 24 hrs) 06/20/20 16:00: Sodium 138, Potassium 3.2 L, BUN 10, Creatinine 0.86, Glucose 93 06/20/20 16:00: WBC 8.5, Hgb 10.9 L, Hct 32.4 L, Plt Count 268 Assessment and Plan - Advance Directives Does patient have a Living Will: No Does patient have a Durable POA for Healthcare: No - Code Status/Comfort Care Code Status Assessed: Yes Code Status: Full Code Physician Review Additional Text: RLE cellulitis, ? Failed outpatient antibiotics -SIRS 0/4, the patient does not appear septic -significant erythema, warmth, induration, and tenderness from knee to the foot. -difficulty hearing patient's mother over the phone, but sounded like the patient took 1 dose of penicillin at home yesterday -no significant risk factor for MRSA, no abscess on exam -will treat with IV Ancef, gentle IV fluids overnight Time Spent Managing Pts Care (In Minutes): 45
[2020-06-20] MEDS ORDERED: ACETAMINOPHEN 500 MG TAB PO PRN (21:35)
[2020-06-20] MEDS ORDERED: MORPHINE 2 MG/ML SYR IV PRN (21:35)
[2020-06-20] MEDS: NA CHLORIDE 0.9% 1,000 ML IV SCH (22:51)
[2020-06-21] MEDS ORDERED: CEFAZOLIN 2 GM in NA CHLORIDE 0.9% 100 ML IVPB SCH (01:00)
[2020-06-21] MEDS ORDERED: CEFAZOLIN SODIUM 1 GM/VIAL ONE (01:40)
[2020-06-21] MEDS: CEFAZOLIN/SWI 2gm 2 GM/20 ML SYR IV SCH ×3 (01:49→17:05)
[2020-06-21 03:14] VITALS: BMI 80.5
[2020-06-21 04:34] LABS: Absolute Lymphocytes (CBC) 1.3 K/uL (0.7-4.9); Basophils % 0.7 % (0-1.3); Hematocrit 33.1 % (39.6-49.0); Lymphocytes % 16.8 % (15.3-44.8); MPV 9.3 fL (7.6-11.3); RBC Red Blood Cell Count 3.72 M/uL (4.33-5.43)
[2020-06-21 04:59] LABS: BUN Blood Urea Nitrogen 10 mg/dL (7-18); Bicarbonate 29 mmol/L (21-32); Glucose Level 81 mg/dL (74-106); Potassium 3.5 mmol/L (3.5-5.1); Sodium Level 138 mmol/L (136-145)
[2020-06-21] MEDS: ENOXAPARIN 40 MG/0.4 ML SQ SCH (09:23)
[2020-06-21] MEDS: NA CHLORIDE 0.9% 1,000 ML IV SCH ×2 (09:24→17:05)
--- NOTE | 2020-06-21 17:25 | P.PN ---
Subjective Date of Service: 06/21/20 Primary Care Provider: Dr. Turner Chief Complaint: RLE cellulitis, failed outpatient therapy mild improvement Review of Systems 10-point ROS is otherwise unremarkable Physical Examination - Vital Signs Temperature: 97.6 F Blood Pressure: 126/77 Pulse: 73 Respirations: 19 Pulse Ox (%): 97 - Physical Exam General: Alert, In no apparent distress, Obese HEENT: Sclerae nonicteric Neck: No LAD Respiratory: Clear to auscultation bilaterally, Normal air movement Cardiovascular: Regular rate/rhythm, Normal S1 S2, Edema (RLE 3+ to knee) Gastrointestinal: Soft and benign, Non-distended, No tenderness Musculoskeletal: Erythema (R ankle to knee, slightly decreased), Tenderness (R ankle to knee, most severe in R posterior calf), Other (significant induration along entirety of R posterior leg) Integumentary: No ulcers Neurological: Normal speech, Normal affect Assessment & Plan Physician Review Additional Text: RLE cellulitis, ? Failed outpatient antibiotics -SIRS 0/4, the patient does not appear septic -significant erythema, warmth, induration, and tenderness from knee to the foot. -extensive induration of entirety of posterior calf with 2 to 3+ edema of R leg up to knee -some minimal improvement with IV Abx -NG on cultures -given extensive cellulitis/induration and edema, would benefit from IV antibiotics at this time -patient states he took 3 pills of penicillin over the past 2 days prior to admission and his leg only worsened -continue IV Ancef, dc IVF received call from R1, agreed that description of severity of cellulitis warranted inpatient status Time Spent Managing Pts Care (In Minutes): 30
[2020-06-22] MEDS: CEFAZOLIN/SWI 2gm 2 GM/20 ML SYR IV SCH ×3 (01:08→16:30)
[2020-06-22] MEDS: NA CHLORIDE 0.9% 1,000 ML IV SCH ×2 (03:32→14:18)
[2020-06-22 04:29] LABS: Absolute Lymphocytes (CBC) 1.6 K/uL (0.7-4.9); Basophils % 0.7 % (0-1.3); Hematocrit 32.6 % (39.6-49.0); Lymphocytes % 19.3 % (15.3-44.8); MPV 8.8 fL (7.6-11.3); RBC Red Blood Cell Count 3.61 M/uL (4.33-5.43)
[2020-06-22 05:05] LABS: BUN Blood Urea Nitrogen 10 mg/dL (7-18); Bicarbonate 29 mmol/L (21-32); Glucose Level 84 mg/dL (74-106); Potassium 3.7 mmol/L (3.5-5.1); Sodium Level 140 mmol/L (136-145)
[2020-06-22] MEDS: ENOXAPARIN 40 MG/0.4 ML SQ SCH (08:42)
--- NOTE | 2020-06-22 12:54 | P.PN ---
Subjective Date of Service: 06/22/20 Primary Care Provider: Dr. Turner Chief Complaint: RLE cellulitis, failed outpatient therapy Subjective: Improving (Mild improvement, reports able to fit sandal on foot now) Review of Systems 10-point ROS is otherwise unremarkable Physical Examination - Vital Signs Temperature: 97.1 F Blood Pressure: 120/59 Pulse: 70 Respirations: 20 Pulse Ox (%): 96 - Physical Exam General: Alert, In no apparent distress, Obese HEENT: EOMI, Sclerae nonicteric Neck: Supple, JVD not distended Respiratory: Clear to auscultation bilaterally, Normal air movement Cardiovascular: Regular rate/rhythm, Normal S1 S2 Gastrointestinal: Normal bowel sounds, Soft and benign, No tenderness Integumentary: Erythema (RLE: From ankle to knee, less red, still with significant induration of posterior calf down to upper ankle. A small, 3 x 3 cm shallow ulceration/skin tear noted on posterior ankle) Neurological: Normal speech, Normal tone, Normal affect - Studies Medications List Reviewed: Yes Assessment & Plan Physician Review Additional Text: RLE cellulitis, ? Failed outpatient antibiotics -patient states he took 3 pills of penicillin over the past 2 days prior to admission and his leg only worsened -SIRS 0/4, the patient did not appear septic -significant erythema, warmth, induration, and tenderness from knee to the foot. -extensive induration of entirety of posterior calf with 2 to 3+ edema of R leg up to knee -notable improvement of erythema with IV Abx, a moderate improvement in edema, induration persists -NG on cultures -given extensive cellulitis/induration and edema, would benefit from IV antibiotics at this time -continue IV Ancef -anticipate discharge tomorrow, can definitely benefit from 1 more day of IV antibiotics -level of induration makes it difficult to rule out possible abscess Time Spent Managing Pts Care (In Minutes): 35
[2020-06-23] MEDS: NA CHLORIDE 0.9% 1,000 ML IV SCH ×2 (00:29→08:09)
[2020-06-23] MEDS: CEFAZOLIN/SWI 2gm 2 GM/20 ML SYR IV SCH ×2 (00:29→08:08)
[2020-06-23 06:59] LABS: BUN Blood Urea Nitrogen 9 mg/dL (7-18); Bicarbonate 26 mmol/L (21-32); Glucose Level 77 mg/dL (74-106); Potassium 3.8 mmol/L (3.5-5.1); Sodium Level 141 mmol/L (136-145)
--- NOTE | 2020-06-23 07:59 | P.DS ---
Admission Date: 06/20/20 Discharge Date: 06/23/20 Primary Care Provider: Dr. Turner Disposition: ROUTINE DISCHARGE Discharge Condition: GOOD Reason for Admission: RLE cellulitis, failed outpatient therapy Consultations: None Procedures: RLE venous ultrasound (06/20/2020): No DVT Problem list RLE significant cellulitis, failed outpatient therapy Morbid obesity Brief History of Present Illness: Morbidly obese 25-year-old presents to the ED with 2 days of progressively worsening right lower leg swelling, redness, and burning pain. He reports his mother 1st noticed this 2 days ago. He took 3 doses of penicillin his family had left over from a few months ago, and had no improvement. He states this is the 1st skin infection that he has had like this. In the ED lab work was notable for mild hypokalemia (3.2) and an elevated pro calcitonin at 3.11, lower extremity ultrasound was negative for DVT. He was given a dose of IV vancomycin. Hospital Course: The patient was admitted for treatment of his significant right lower extremity cellulitis with IV Ancef. The erythema, swelling, induration, and pain slowly improved. His CRP was noted to decrease from 203->125 (9/4 -> 9/5). The patient never appeared septic. He was kept in patients due to the significant amount of swelling and induration. As the swelling and induration came down, there did not seem to be an abscess. On hospital day 2, the swelling did lead to a small shallow ulceration in the back of his leg, just above his ankle, to open up a little bit more. There is never any purulent drainage. On day of discharge he felt significantly better, the erythema had mostly receded, and induration had improved. He did continue with some induration in his posterior calf. He was discharged home with Keflex to complete a 10 day course of antibiotics. He was advised to follow up within 1 week with his PCP Vital Signs/Physical Exam: Temp Pulse Resp BP Pulse Ox 97 F 66 25 H 122/73 95 06/23/20 04:45 06/23/20 04:45 06/23/20 04:45 06/23/20 04:45 06/23/20 04:45 General: Alert, In no apparent distress, Obese HEENT: PERRLA, EOMI, Sclerae nonicteric Neck: Supple, No LAD Respiratory: Clear to auscultation bilaterally, Normal air movement Cardiovascular: Regular rate/rhythm, Normal S1 S2 Gastrointestinal: Normal bowel sounds, Soft and benign, No tenderness Integumentary: Skin breakdown (RLE posterior lower leg, very shallow ~3x3 cm, no drainage), Erythema (Anterior serra), Other (Induration of the area over right posterior calf) Neurological: Normal speech, Normal tone, Normal affect Lymphatics: No axilla or inguinal lymphadenopathy Laboratory Data at Discharge: WBC 8.3 K/uL (4.3-10.9) 06/22/20 03:55 Hgb 10.9 g/dL (13.6-17.9) L 06/22/20 03:55 Hct 32.6 % (39.6-49.0) L 06/22/20 03:55 Plt Count 328 K/uL (152-406) 06/22/20 03:55 Sodium 141 mmol/L (136-145) 06/23/20 06:06 Potassium 3.8 mmol/L (3.5-5.1) 06/23/20 06:06 BUN 9 mg/dL (7-18) 06/23/20 06:06 Creatinine 0.62 mg/dL (0.55-1.3) 06/23/20 06:06 Glucose 77 mg/dL (74-106) 06/23/20 06:06 Home Medications: Cephalexin [Keflex] 500 mg PO Q6HR 7 Days #28 cap 06/23/20 New Medications: Cephalexin [Keflex] 500 mg PO Q6HR 7 Days #28 cap Patient Discharge Instructions: Follow up with PCP within 1 week. No submerging leg in water. Ok to shower. no baths, no swimming, no hot tubs, etc Diet: Regular Activity: Ad gudelia Time spent managing pt's care (in minutes): 35
[2020-06-23 08:06] LABS: Ferritin 324.4 ng/mL (26-388)
[2020-06-23 08:07] VITALS: O2SAT 95
[2020-06-23] MEDS: ENOXAPARIN 40 MG/0.4 ML SQ SCH (08:08)
[2020-06-23 09:08] VITALS: BP 114/67; TEMP 98.8
== END 2020-06-23 09:15 | disposition home or self-care (01) | DRG 602 ==
LOC: ER 15:10 → ERHOLD 18:30 → 2ND 20:50 → 3RD-ICU 06-23 04:35
PROVIDERS: ADMIT Hospitalist; ATTEND Hospitalist
DX: L03.115 Cellulitis of right lower limb (principal); U07.1 COVID-19; Z68.45 Body mass index [BMI] 70 or greater, adult; L97.819 Non-pressure chronic ulcer of other part of right lower leg with unspecified severity; E66.01 Morbid (severe) obesity due to excess calories; E87.6 Hypokalemia
CPT/HCPCS: 36415; 80048; 82728; 84145; 85025; 86140; 87040; 93971; 96365; 96366; 96367; 99285; J0690; J1650; J3370; J7030; U0002

== ENCOUNTER 2020-11-01 20:35 | Observation (INO) | payer OTHER ==
--- OUTSIDE RECORDS SUMMARY | 2020-11-01 20:37 | XMS REPORT | Continuity of Care Document ---
:1995 Author Organization [facility] t Address [address] [place] [address] Care Team Providers Name Role Phone Unavailable Unavailable Unavailable Problems This patient has no known problems. Allergies, Adverse Reactions, Alerts This patient has no known allergies or adverse reactions. Medications Ordered Filled Start Stop Current Ordering Indication Dosage Frequency Signature Comments Components Source Medication Medication Date Date Medication? Clinician (SIG) Name Name Toñoleatha Narciso 2020- No [facility] mukul [facility] thickness [facility] Mupirocin Mupirocin 2019- No Na Turner [address] [facility]28 [facility]atio [facility]: [facility] n to [facility] 00 :00 affected l area Outpati ent Clinics Keflex Keflex 2019- No Na Turner [address] [facility] 06-28 [facility] l [facility] Clinics Wellbutrin Wellbutrin Yes Na Turner [address] [facility] SR SR 7-18 in am [facility] Ergocalcife Ergocalcife Yes Na Turner [address] [facility] rol rol - [facility] Ventolin Ventolin Yes Na Turner [address] [facility] HFA HFA 2-13 needed [facility] Celexa Celexa Yes Na Turner [address] [facility] Yes Na Turner [address] [facility] Allergy Allergy [facility] Multivitami Multivitami Yes Na Turner not [facility] n Adult n Adult defined [facility] Yes Na Turner not [facility] defined [facility] Lisinopril- Lisinopril- Yes Na Turner [address] [facility] Hydrochloro Hydrochloro L u[facility] - [facility]ide [facility] Ranitidine Ranitidine Yes Na Turner [address] [facility] HCl HCl at bedtime [facility] Immunizations Ordered Filled Immunization Date Status Comments [facility] e Immunization Name Name Flucgingervax - Flucelvax - 2018-12-[address] [facility] - multidose vial multidose vial 00:00:00 [facility] Procedures This patient has no known procedures. Encounters Start End Encounter Admission Attending Care Care Encounter Source Date/Time Date/Time Type Type Clinicians Facility Department ID 2020-08-03 2020-08-03 Outpatient [facility] [id number] [facility] 2020-07-17 2020-07-17 [facility] [id number] [facility] 2020-07-13 2020-07-13 Out[facility] [id number] [facility] 2020-07-10 2020-07-10 Out[facility] [id number] [facility] 2020-06-28 2020-06-28 [facility] [id number] [facility] 13:00:00 13:00:00 [facility] [employer] [facility] Outpati ent Clinics 2020-06-21 2020-06-21 [facility] [id number] 15:38:00 15:38:00 [place] [employer] s - Drive [facility] Medicine l Medicine Outpati ent Clinics 2020-04-24 2020-04-24 [facility] [id number] [address] 14:00:00 14:00:00 [facility] l Medicine Outpati ent Clinics 2020-04-23 2020-04-23 [facility] [id number] 16:20:00 16:20:00 [facility] l Medicine Outpati ent Clinics 2020-04-23 2020-04-23 [facility] [id number] 09:55:00 09:55:00 [facility] Medicine Outpati ent Clinics 2020-04-13 2020-04-13 [facility] [id number] 15:15:00 15:15:00 [place] [employer] [facility] Medicine Outpati ent Clinics 2020-04-09 2020-04-09 [facility] [id number] 14:00:00 14:00:00 [place] [employer] - Drive [facility] Medicine Medicine Outpati ent Clinics 2020-02-24 2020-02-24 [facility] [id number] 16:06:00 16:06:00 t [employer] - Drive [facility] Medicine Outpati ent Clinics 2019-08-31 2019-08-31 [facility] [id number] 11[facility]40:00 11:40:00 [place] [employer] - Drive [facility] Medicine l Medicine Outpati ent Clinics 2019-08-12 2019-08-12 [facility] [id number] [address] 08:00:00 08:00:00 [place] [employer] s - Drive [facility] l Medicine Outpati ent Clinics 2019-08-02 2019-08-02 [facility] [id number] [address] 14:20:00 14:20:00 [place] [employer] - Drive [facility] Medicine Outpati ent Clinics 2019-07-25 2019-07-25 [facility] [id number] 14[facility]20:00 14:20:00 [place] [employer] - [employer] [facility] Medicine Outpati ent Clinics 2019-05-05 2019-05-05 [facility] [id number] [address] 13:20:00 13:20:00 [place] [employer] [facility] Medicine Outpati ent Clinics 2019-01-31 2019-01-31 [facility] [id number] [address] 15:00:00 15:00:00 [place] [employer] [facility] Medicine Outpati ent Clinics 2018-12-16 2018-12-16 [facility] [id number] 14[facility]15:00 14:15:00 [place] [employer] [facility] Medicine Outpati ent Clinics 2018-11-01 2018-11-01 [facility] [id number] [address] 09:00:00 09:00:00 [place] [employer] [facility] Medicine Outpati ent Clinics 2018-06-18 2018-06-18 [facility] [id number] 14:40:00 14:40:00 [place] [employer] [facility] Medicine Outpati ent Clinics 2018-04-19 2018-04-19 [facility] [id number] 10:30:00 10:30:00 t [employer] - [employer] [facility] Medicine Outpati ent Clinics Results This patient has no known results.
--- OUTSIDE RECORDS SUMMARY | 2020-11-01 20:38 | XMS REPORT ---
:1995 Author Organization [facility] Address [address] [place] [place] [address] Care Team Providers Name Role Phone Turner Unavailable [phone] PROBLEMS Type Condition ICD9-CM JTM60-OF Onset Condition SNOMED Code Notes Code Code Dates Status Problem Depression with F41.8 Active 022167438 anxiety Problem Obstructive G47.33 Active 93824511 sleep apnea Problem Daytime R40.0 Active 140235478972 somnolence Problem Depression, F32.9 Active 37137562 unspecified depression type Problem Obstructive G47.33 Active 22810533 sleep apnea syndrome Problem Chronic fatigue R53.82 Active 62236144 Problem BMI 70 and over, Z68.45 Active 420329922 adult Problem Acute non G44.209 Active 018399859 intractable tension-type headache Problem Blood tests for Z00.00 Active 958291215 routine general physical examination Problem Essential I10 Active 01617909 hypertension Problem Adult general Z00.00 Active 186854437 medical exam Problem Peripheral I73.9 Active 660033285 vascular disease Problem Snoring R06.83 Active 68274956 Problem Vitamin D E55.9 Active 72987170 deficiency Problem Ulcer of right L97.911 Active 500024131 lower extremity, limited to breakdown of skin Problem Morning headache R51 Active 266227980 Problem Morbid obesity E66.01 Active 635879639 Problem Allergic J30.2 Active 983411121 rhinitis, seasonal Problem Severe major F32.2 Active 693069089 depression Problem Dry eyes H04.123 Active 811155459 Problem Paresthesia of R20.2 Active 50196489 skin Problem Venous stasis I87.2 Active 75321106 dermatitis of right lower extremity ALLERGIES No Known Allergies ENCOUNTERS from 1995 to 2020-08-06 Encounter Location Date Provider Diagnosis [facility] [address] Jul, 2020 Shaista Turner Cellulitis of [facility], [place] leg L03. 115 [id number] IMMUNIZATIONS Vaccine Route Administration Date Status Flucelvax - multidose vial IM Intramuscular Dec 16, 2018 Admi nistered SOCIAL HISTORY Tobacco Use: Social History Observation Description Date Details (start date - stop date) Never Smoker Sex Assigned At : Social History Observation Description Sex Assigned At Unknown PHQ9 Question Answer Notes Little interest or pleasure in doing things More than half t he days Feeling down, depressed, or hopeless More than half the days Trouble falling or staying asleep or sleeping too much Sever al days Feeling tired or having little energy Several days Poor appetite or overeating Not at all Feeling bad about yourself, or that you are a failure, Sever al days or have let yourself or your family down Trouble concentrating on things, such as reading the Several days newspaper or watching television Moving or speaking so slowly that other people could Several days have noticed; or the opposite, being so fidgety or restless that you have been moving around a lot more than usual Total Score 9 Interpretation Mild Depression Thoughts that you would be better off or of Not at all hurting yourself in some way Tobacco Use/Smoking Question Answer Notes Are you a never smoker REASON FOR REFERRAL No Information VITAL SIGNS No information MEDICATIONS Medication SIG (Take, Route, Start Date End Date Status Frequency, Duration) Keflex 500 MG 1 capsule Orally every 12 Jun, A ctive hrs for 14 day(s) Lisinopril-Hydrochlorothiazid 1 tablet Orally Once a day Active e 20-25 MG for 90 days Wellbutrin SR 150 MG 1 tablet in the morning Active Orally Once a day for 90 days Mupirocin 2 % 1 application to affected A ctive area Externally twice a day for 14 days Saxenda 18 MG/3ML Subcutaneous Active Santyl 250 UNIT/GM 1 application mukul A ctive thickness Externally twice a day to open ulcer /sore for 30 days Zyrtec Allergy 10 MG 1 tablet Orally Once a day Active for 90 days Multivitamin Adult - Orally Active Celexa 20 MG 1 tablet at bedtime Orally A ctive Once a day for 90 days Ventolin HFA 108 (90 Base) 2 puffs as needed Nov, Active MCG/ACT Inhalation every 6 hrs for 30 days Ranitidine HCl 150 MG 1 capsule at bedtime Unknown Orally Twice a day Ergocalciferol 37295 UNIT 1 capsule Orally once a Active week x 12 weeks for 90 day(s) PROCEDURES No Information RESULTS No Results REASON FOR VISIT Antibiotic request MEDICAL (GENERAL) HISTORY Type Description Date Medical History Morbid obesity Medical History Obstructive sleep apnea Medical History Vitamin D deficiency Medical History Allergic rhinitis, seasonal Medical History Depression with anxiety Surgical History No Surgical history information Goals Section No Information Health Concerns No Information MEDICAL EQUIPMENT No Information MENTAL STATUS No Information FUNCTIONAL STATUS No Information ASSESSMENTS Encounter Date Diagnosis Notes Jul, Cellulitis of right leg (ICD-10 - L03.11 5) PLAN OF TREATMENT Medication Medication Name Sig Start Date Stop Date Santyl 250 UNIT/GM 1 application mukul thickness Externally twice a day to open ulcer /sore for 30 days Keflex 500 MG 1 capsule Orally every 12 hrs Jun, for 14 day(s) Mupirocin 2 % 1 application to affected area Externally twice a day for 14 days Lisinopril-Hydrochlorothiazide 1 tablet Orally Once a day for 20-25 MG 90 days Insurance Providers Payer Name Payer Payer Insured Patient Coverage Coverage End Address Phone Name Relationship to Start Date Lloyd e Insured [facility] [phone] JustinDonato flakita [address] [id number] [address] [facility] [id number]
--- NOTE | 2020-11-02 02:21 | EDPHYS ---
Physician Documentation [facility] Name: Donato Anderson Age: 25 yrs Sex: Male : 1995 Arrival Date: 11/01/2020 Time: 20:37 Bed 16 Private MD: ISHA Physician Lito Trejo HPI: 11/02 02:12 This 25 yrs old Male presents to ER via Ambulatory with complaints of Leg Pain.jarrod 02:12 The patient presents with pain, swelling, tenderness. The complaints affect the lateral jarrod aspect of left knee, lateral aspect of left calf, left lateral ankle, posterior aspect of left knee, left calf, left Achilles, medial aspect of left knee, medial aspect of left calf, left medial ankle, left knee, left serra and anterior aspect of left ankle. Context: The problem was sustained at an unknown site. Onset: The symptoms/episode began/occurred 2 day(s) ago. Modifying factors: The symptoms are alleviated by elevating leg, remaining still, the symptoms are aggravated by movement, weight bearing. Treatment prior to arrival includes: no previous treatment. Severity of symptoms: At their worst the symptoms were moderate, in the emergency department the symptoms are unchanged. Historical: - Allergies: 11/01 20:44 No Known Allergies; ca1 - PMHx: 20:44 Asthma; Sleep Apnea; ca1 - PSHx: 20:44 None; ca1 - Immunization history:: Adult Immunizations unknown. - Social history:: Smoking status: Patient denies any tobacco usage or history of. ROS: 11/02 02:14 Constitutional: Negative for fever, chills, and weight loss, Eyes: Negative for injury, jarrod pain, redness, and discharge, ENT: Negative for injury, pain, and discharge, Neck: Negative for injury, pain, and swelling, Cardiovascular: Negative for chest pain, palpitations, and edema, Respiratory: Negative for shortness of breath, cough, wheezing, and pleuritic chest pain, Abdomen/GI: Negative for abdominal pain, nausea, vomiting, diarrhea, and constipation, Back: Negative for injury and pain, : Negative for injury, bleeding, discharge, and swelling, Skin: Negative for injury, rash, and discoloration, Neuro: Negative for headache, weakness, numbness, tingling, and seizure, Psych: Negative for depression, anxiety, suicide ideation, homicidal ideation, and hallucinations, Allergy/Immunology: Negative for hives, rash, and allergies, Endocrine: Negative for neck swelling, polydipsia, polyuria, polyphagia, and marked weight changes, Hematologic/Lymphatic: Negative for swollen nodes, abnormal bleeding, and unusual bruising. MS/extremity: Positive for pain, swelling, tenderness, of the lateral aspect of left calf, left lateral ankle, left calf, left Achilles, medial aspect of left calf, left medial ankle, left serra and anterior aspect of left ankle. Exam: 02:14 Constitutional: This is a well developed, well nourished patient who is awake, alert, jarrod and in no acute distress. Head/Face: Normocephalic, atraumatic. Eyes: Pupils equal round and reactive to light, extra-ocular motions intact. Lids and lashes normal. Conjunctiva and sclera are non-icteric and not injected. Cornea within normal limits. Periorbital areas with no swelling, redness, or edema. ENT: Nares patent. No nasal discharge, no septal abnormalities noted. Tympanic membranes are normal and external auditory canals are clear. Oropharynx with no redness, swelling, or masses, exudates, or evidence of obstruction, uvula midline. Mucous membranes moist. Neck: Trachea midline, no thyromegaly or masses palpated, and no cervical lymphadenopathy. Supple, full range of motion without nuchal rigidity, or vertebral point tenderness. No Meningismus. Chest/axilla: Normal chest wall appearance and motion. Nontender with no deformity. No lesions are appreciated. Cardiovascular: Regular rate and rhythm with a normal S1 and S2. No gallops, murmurs, or rubs. Normal PMI, no JVD. No pulse deficits. Respiratory: Lungs have equal breath sounds bilaterally, clear to auscultation and percussion. No rales, rhonchi or wheezes noted. No increased work of breathing, no retractions or nasal flaring. Abdomen/GI: Soft, non-tender, with normal bowel sounds. No distension or tympany. No guarding or rebound. No evidence of tenderness throughout. Back: No spinal tenderness. No costovertebral tenderness. Full range of motion. Male : Normal genitalia with no discharge or lesions. MS/ Extremity: Pulses equal, no cyanosis. Neurovascular intact. Full, normal range of motion. Neuro: Awake and alert, GCS 15, oriented to person, place, time, and situation. Cranial nerves II-XII grossly intact. Motor strength 5/5 in all extremities. Sensory grossly intact. Cerebellar exam normal. Normal gait. Psych: Awake, alert, with orientation to person, place and time. Behavior, mood, and affect are within normal limits. 02:14 Skin: Appearance: Color: erythematous, Temperature: warm, Moisture: petechiae, not noted, ecchymosis, not noted, abscess, not appreciated, cellulitis, that is moderate, induration, that is moderate is noted. Vital Signs: 11/01 20:42 BP 124 / 74; Pulse 103; Resp 20 S; Temp 98.1(O); Pulse Ox 98% on R/A; Weight 217.72 kg ca1 (R); Height 5 ft. 5 in. (165.10 cm) (R); Pain 0/10; 11/02 01:59 BP 127 / 60; Pulse 95; Resp 18; Pulse Ox 99% on R/A; mg2 11/01 20:42 Body Mass Index 79.88 (217.72 kg, 165.10 cm) ca1 MDM: 01:[address] [facility] 02:14 Differential diagnosis:. Data reviewed: vital signs, nurses notes. Data interpreted: [facility] environmental monitoring technician: rate is 95 beats/min, rhythm is regular, Pulse oximetry: on room air is 99 %. Test interpretation: by ED physician or midlevel provider:. Counseling: I had a detailed discussion with the patient and/or guardian regarding: the historical points, exam findings, and any diagnostic results supporting the discharge/admit diagnosis, lab results. 11/02 02:11 Order name: CBC with Diff [facility] 11/02 02:11 Order name: Comprehensive Metabolic Panel [facility] 11/02 02:11 Order name: Blood Culture Adult (2) [facility] 11/02 02:12 Order name: Lactate; Complete Time: 03:24 [facility] 11/02 03:42 Order name: SARS-COV-2 RT PCR; Complete Time: 03:52 EDMS Administered Medications: 02:41 Drug: LevaQUIN 750 mg Volume: 150 ml; Route: IVPB; Infused Over: 90 mins; Site: left mg2 forearm; 03:46 Follow up: IV Status: Infusion continued upon admission rv 02:41 Drug: Lovenox 100 mg Route: Sub-Q; Site: right lower abdomen; mg2 03:46 Follow up: Response: No adverse reaction rv 02:42 Drug: NS 0.9% 500 ml Route: IV; Rate: bolus; Site: left forearm; mg2 03:46 Follow up: IV Status: Completed infusion; IV Intake: 500ml rv 03:43 Drug: vancoMYCIN 2 grams Route: IVPB; Rate: calculated rate; Site: left forearm; rv 03:46 Follow up: IV Status: Infusion continued upon admission rv 03:46 Drug: NS 0.9% 1000 ml Route: IV; Rate: 125 ml/hr; Site: left forearm; rv 03:46 Follow up: IV Status: Infusion continued upon admission rv Disposition: 11/02/20 02:20 Hospitalization ordered by Hans Lockett for Inpatient Admission. Preliminary diagnosis are Cellulitis and acute lymphangitis of other parts of limb, Obesity, unspecified. - Bed requested for [facility] ER HOLD. - Status is Inpatient Admission. ph - Condition is Fair. - Problem is new. - Symptoms have improved. Signatures: Dispatcher [employer] [facility] Lisa Bashir RN RN mw Anderson, Corey, MD MD cha Roszak, Josh, PA PA jr8 Diana Newell RN RN Bright Edmonds RN RN [facility] Melchor James RN RN Danielle Haley RN RN ca1 Corrections: (The following items were deleted from the chart) 02:48 02:14 CORONAVIRUS+LAB.TOMÁS ordered. [facility] EDNH 02:52 02:20 Hospitalization Ordered by Hans Lockett for Inpatient Admission. Preliminary diagnosis is Cellulitis and acute lymphangitis of other parts of limb; Obesity, unspecified. Bed requested for Telemetry/MedSurg (Inpatient). Status is Inpatient Admission. Condition is Fair. Problem is new. Symptoms have improved. [facility] 13:56 02:52 11/02/2020 02:20 Hospitalization Ordered by Hans Lockett for Inpatient ph Admission. Preliminary diagnosis is Cellulitis and acute lymphangitis of other parts of limb; Obesity, unspecified. Bed requested for [facility] ER HOLD. Status is Inpatient Admission. Condition is Fair. Problem is new. Symptoms have improved.
--- NOTE | 2020-11-02 02:21 | ER ---
Nurse's Notes [facility] Name: Donato Anderson Age: 25 yrs Sex: Male : 1995 Arrival Date: 11/01/2020 Time: 20:37 Bed 16 Private MD: Diagnosis: Cellulitis and acute lymphangitis of other parts of limb;Obesity, unspecified Presentation: 11/01 20:42 Chief complaint: Patient states: Swelling and redness of L leg since yesterday. Denies ca1 fever. Coronavirus screen: Client denies travel out of the [place] in the last 14 days. At this time, the client does not indicate any symptoms associated with coronavirus-19. Ebola Screen: Patient negative for fever greater than or equal to 101.5 degrees Fahrenheit, and additional compatible Ebola Virus Disease symptoms Patient denies exposure to infectious person. Patient denies travel to an Ebola-affected area in the 21 days before illness onset. No symptoms or risks identified at this time. Initial Sepsis Screen: Does the patient meet any 2 criteria? No. Patient's initial sepsis screen is negative. Does the patient have a suspected source of infection? No. Patient's initial sepsis screen is negative. Risk Assessment: Do you want to hurt yourself or someone else? Patient reports no desire to harm self or others. Onset of symptoms was November 01, 2020. 20:42 Method Of Arrival: Ambulatory ca1 20:42 Acuity: NEFTALY 3 ca1 Historical: - Allergies: 20:44 No Known Allergies; ca1 - PMHx: 20:44 Asthma; Sleep Apnea; ca1 - PSHx: 20:44 None; ca1 - Immunization history:: Adult Immunizations unknown. - Social history:: Smoking status: Patient denies any tobacco usage or history of. Screenin/15 01:59 Abuse screen: Denies threats or abuse. Denies injuries from another. Nutritional mg2 screening: No deficits noted. Tuberculosis screening: No symptoms or risk factors identified. Fall Risk None identified. Assessment: 01:58 General: Appears in no apparent distress. comfortable, Behavior is calm, cooperative. mg2 Pain: Complains of pain in left leg. Neuro: Level of Consciousness is awake, alert, obeys commands, Oriented to person, place, time, situation. Cardiovascular: Capillary refill < 3 seconds Patient's skin is warm and dry. Respiratory: Airway is patent Respiratory effort is even, unlabored, Respiratory pattern is regular, symmetrical. GI: No signs and/or symptoms were reported involving the gastrointestinal system. : No signs and/or symptoms were reported regarding the genitourinary system. EENT: No signs and/or symptoms were reported regarding the EENT system. Derm: Skin is red, redness in the left leg. Musculoskeletal: Circulation, motion, and sensation intact. Capillary refill < 3 seconds, Swelling present in left leg. Vital Signs: 11/01 20:42 BP 124 / 74; Pulse 103; Resp 20 S; Temp 98.1(O); Pulse Ox 98% on R/A; Weight 217.72 kg ca1 (R); Height 5 ft. 5 in. (165.10 cm) (R); Pain 0/10; 11/02 01:59 BP 127 / 60; Pulse 95; Resp 18; Pulse Ox 99% on R/A; mg2 11/01 20:42 Body Mass Index 79.88 (217.72 kg, 165.10 cm) ca1 ED Course: 11/01 20:37 Patient arrived in ED. ag3 20:44 Triage completed. ca1 20:44 Arm band placed on right wrist. ca1 11/02 01:51 Lito Trejo MD is Attending Physician. jarrod 01:58 Bright Edmonds RN is Primary Nurse. mg2 01:59 Patient has correct armband on for positive identification. mg2 01:59 No provider procedures requiring assistance completed. mg2 02:18 Hans Lockett is Hospitalizing Provider. jarrod 02:30 Inserted saline lock: 20 gauge in left forearm, using aseptic technique. Blood mg2 collected. 03:45 IV is patent, with fluids infusing freely, Patient admitted, IV remains in place. rv Administered Medications: 02:41 Drug: LevaQUIN 750 mg Volume: 150 ml; Route: IVPB; Infused Over: 90 mins; Site: left mg2 forearm; 03:46 Follow up: IV Status: Infusion continued upon admission rv 02:41 Drug: Lovenox 100 mg Route: Sub-Q; Site: right lower abdomen; mg2 03:46 Follow up: Response: No adverse reaction rv 02:42 Drug: NS 0.9% 500 ml Route: IV; Rate: bolus; Site: left forearm; mg2 03:46 Follow up: IV Status: Completed infusion; IV Intake: 500ml rv 03:43 Drug: vancoMYCIN 2 grams Route: IVPB; Rate: calculated rate; Site: left forearm; rv 03:46 Follow up: IV Status: Infusion continued upon admission rv 03:46 Drug: NS 0.9% 1000 ml Route: IV; Rate: 125 ml/hr; Site: left forearm; rv 03:46 Follow up: IV Status: Infusion continued upon admission rv Intake: 03:46 IV: 500ml; Total: 500ml. rv Outcome: 02:20 Decision to Hospitalize by Provider. jarrod 03:45 Admitted to ER Hold. Please see [facility] for further documentation. rv 03:45 Condition: good 03:45 Instructed on the need for admit. 13:56 Patient left the ED. ph Signatures: Lito Trejo MD MD cha Hall, Patricia RN RN ph Bright Edmonds RN RN mg2 Melchor James RN RN rv Eveline Posada ag3 Danielle Haley RN RN ca1
[2020-11-02] MEDS ORDERED: ENOXAPARIN 100 MG/ML SYR SQ ONE (02:31)
[2020-11-02] MEDS ORDERED: NA CHLORIDE 0.9% 500 ML ONE (02:31)
[2020-11-02] MEDS ORDERED: VANCOMYCIN 1 GM/VIAL ONE ×2 (02:31→03:10)
[2020-11-02] MEDS ORDERED: Levofloxacin 750mg IV 750 MG/150 ML BAG IV ONE (02:32)
[2020-11-02] MEDS ORDERED: NA CHLORIDE 0.9% 2,000 ML ONE (02:32)
[2020-11-02 03:57] VITALS: BMI 79.9
--- NOTE | 2020-11-02 03:59 | P.HP ---
Certification for Inpatient Patient admitted to: Inpatient With expected LOS: >2 Midnights Patient will require the following post-hospital care: None Practitioner: I am a practitioner with admitting privileges, knowledge of patient current condition, hospital course, and medical plan of care. Services: Services provided to patient in accordance with Admission requirements found in Title 42 Section 412.3 of the Code of Federal Regulations <Jacquelin Barrazashua - Last Filed: 11/02/20 03:53> Patient History Date of Service: 11/02/20 Primary Care Provider: Shaista Turner Reason for admission: Cellulitis Left Leg History of Present Illness: This is a 25 y/o M that presented to Emergency room with complaints of redness, swelling, and pain to left lower extremity that started about 24 hours ago but has progressively worsened throughout the evening. Patient evaluated in ED and found to have circumfrential left leg cellulitis to lower leg. Medicine consulted at that time for admission. Patient started on vancomycin and levequin in ED. COVID negative. No signs for sepsis at this time. Home medications list reviewed: Yes - Past Medical/Surgical History Has patient received pneumonia vaccine in the past: No Diabetic: No -: asthma -: sleep apnea - Social History Smoking Status: Never smoker Smoking therapy provided: No Alcohol use: No CD- Drugs: No Caffeine use: Yes Place of Residence: Home <Lee Barraza - Last Filed: 11/02/20 03:53> Date of Service: 11/02/20 <mauricio london - Last Filed: 11/02/20 18:20> Allergies No Known Allergies Allergy (Verified 06/21/20 03:16) Home Medications: Amox/Clavulanate [Augmentin 875-125 Tab] 1 each PO BID #20 tab 11/02/20 Doxycycline Hyclate [Vibramycin] 100 mg PO BID #14 capsule 11/02/20 Review of Systems General: Unremarkable Eyes: Unremarkable ENT: Unremarkable Respiratory: Unremarkable Cardiovascular: Unremarkable Gastrointestinal: Unremarkable Genitourinary: Unremarkable Musculoskeletal: Unremarkable Integumentary: As per HPI Neurological: Unremarkable Lymphatics: Unremarkable <Lee Barraza - Last Filed: 11/02/20 03:53> Physical Examination - Vital Signs Temperature: 98.1 F Blood Pressure: 124/74 Pulse: 103 Respirations: 20 Pulse Ox (%): 98 (RA) - Physical Exam General: Alert, Oriented x3, Cooperative HEENT: PERRLA, Mucous membr. moist/pink, EOMI Neck: Supple, 2+ carotid pulse no bruit, JVD not distended, No Thyromegaly Respiratory: Clear to auscultation bilaterally, Normal air movement Cardiovascular: No edema, Normal pulses, Regular rate/rhythm, Normal S1 S2, No gallops, No rubs, No murmurs Capillary refill: <2 Seconds Gastrointestinal: Normal bowel sounds, Soft and benign, Non-distended, No ascites, No tenderness, No masses, No rebound, No guarding Musculoskeletal: No clubbing, No contractures Integumentary: No rashes, No breakdown, No significant lesion, Tenderness/swelling, Erythema, Warmth, Other (To the left lower extremity) Neurological: Normal speech, Normal strength at 5/5 x4 extr, Normal tone, Sensation intact, Cranial nerves 3-12 intact, Normal affect Lymphatics: No axilla or inguinal lymphadenopathy <Lee Barraza - Last Filed: 11/02/20 03:53> - Studies Laboratory Data (last 24 hrs) 11/02/20 02:15: Sodium 139, Potassium 3.7, BUN 13, Creatinine 0.79, Glucose 87, Total Bilirubin 0.6, AST 15, ALT 22, Alkaline Phosphatase 65 11/02/20 02:15: WBC 10.4, Hgb 11.8 L, Hct 35.9 L, Plt Count 226 Microbiology Data (last 24 hrs): 11/02/20 02:30 Blood - Blood Anaerobic Blood Culture - Final 11/02/20 02:15 Blood - Blood Anaerobic Blood Culture - Final <mauricio london - Last Filed: 11/02/20 18:20> Assessment and Plan - Problems (Diagnosis) (1) Cellulitis of left lower leg Status: Acute (2) Obesity Status: Chronic Qualifiers: Obesity type: due to excess calories Obesity classification: adult class 3 (BMI >= 40) Serious obesity comorbidity presence: without serious comorbidity Body mass index: BMI 70 or greater Qualified Code(s): E66.01 - Morbid (severe) obesity due to excess calories; Z68.45 - Body mass index [BMI] 70 or greater, adult - Plan 1. Patient admitted to medical floor for further evaluation of cellulitis 2. Patient will have labs daily 3. Will continue vancomycin and levaquin 4. V/S checked q4HR 5. DVT prophylaxis Discharge Plan: Home Plan to discharge in: 48 Hours - Advance Directives Does patient have a Living Will: No Does patient have a Durable POA for Healthcare: No - Code Status/Comfort Care Code Status Assessed: Yes Code Status: Full Code Critical Care: No Time Spent Managing Pts Care (In Minutes): 70 <Lee Barraza - Last Filed: 11/02/20 03:53> - Problems (Diagnosis) (1) Lymphedema of both lower extremities Status: Acute (2) Cellulitis of left lower leg Status: Acute (3) Obesity Status: Chronic Qualifiers: Obesity type: due to excess calories Obesity classification: adult class 3 (BMI >= 40) Serious obesity comorbidity presence: without serious comorbidity Body mass index: BMI 70 or greater Qualified Code(s): E66.01 - Morbid (severe) obesity due to excess calories; Z68.45 - Body mass index [BMI] 70 or greater, adult Physician Review: Patient Assessed, Agree with Above Assessment and Plan Physician Review Additional Text: Cellulitis of lower extremity. Bilateral lower extremity lymphedema. Plan: Antibiotics. Keep left lower extremity elevated. <mauricio london - Last Filed: 11/02/20 18:20>
[2020-11-02 04:41] LABS: Absolute Lymphocytes (CBC) 1.1 K/uL (0.7-4.9); Basophils % 0.4 % (0-1.3); Hematocrit 35.9 % (39.6-49.0); Lymphocytes % 10.6 % (15.3-44.8)
[2020-11-02 04:59] LABS: ALT/SGPT 22 U/L (12-78); AST/SGOT 15 U/L (15-37); Albumin 2.5 g/dL (3.4-5.0); Alkaline Phosphatase 65 U/L (45-117); BUN Blood Urea Nitrogen 13 mg/dL (7-18); Bicarbonate 25 mmol/L (21-32); Bilirubin Total 0.6 mg/dL (0.2-1.0); Glucose Level 87 mg/dL (74-106); Potassium 3.7 mmol/L (3.5-5.1); Protein, Total 7.7 g/dL (6.4-8.2); Sodium Level 139 mmol/L (136-145)
[2020-11-02] MEDS ORDERED: ONDANSETRON 4 MG/2 ML VIAL IV PRN (05:34)
[2020-11-02] MEDS ORDERED: NA CHLORIDE 0.9% 1,000 ML IV SCH (05:34)
[2020-11-02] MEDS ORDERED: MORPHINE 4 MG/ML SYR IV PRN (05:34)
[2020-11-02] MEDS ORDERED: ACETAMINOPHEN 500 MG TAB PO ONE (05:35)
[2020-11-02] MEDS ORDERED: ACETAMINOPHEN 500 MG TAB ONE (05:48)
[2020-11-02 06:28] VITALS: O2SAT 96
[2020-11-02] MEDS ORDERED: INFLUENZA VACCINE (for 3y+) 0.5 ML DOSE IMVAC ONE (08:00)
[2020-11-02 11:44] VITALS: BP 109/58; TEMP 98.6
--- NOTE | 2020-11-02 11:46 | P.DS ---
Admission Date: 11/02/20 Discharge Date: 11/02/20 Primary Care Provider: Shaista Turner Disposition: ROUTINE DISCHARGE Discharge Condition: FAIR Reason for Admission: Cellulitis Left Leg - Problems (1) Lymphedema of both lower extremities Status: Acute (2) Cellulitis of left lower leg Status: Acute (3) Obesity Status: Chronic Qualifiers: Obesity type: due to excess calories Obesity classification: adult class 3 (BMI >= 40) Serious obesity comorbidity presence: without serious comorbidity Body mass index: BMI 70 or greater Qualified Code(s): E66.01 - Morbid (balaji re) obesity due to excess calories; Z68.45 - Body mass index [BMI] 70 or greater, adult Brief History of Present Illness: 25-year-old morbidly obese gentleman presented to the emergency department with complaint of redness and swelling and pain in the left lower extremity which has gotten progressively worse over a period of 24 hrs. He reported intermittent redness and swelling of bilateral lower extremities. The ED provider suspected cellulitis. Patient was admitted for further management. Hospital Course: Patient placed under observation and treated with vancomycin and Levaquin for the cellulitis. He had no leukocytosis and no fever. I suspect the redness and the pain is more related to lymphangitis/venostasis dermatitis than cellulitis given the recurrent nature. Patient advised to keep his legs elevated above baseline level in both the lower in certain positions. He is discharged with Augmentin and doxycycline to continue treatment for possible cellulitis. Vital Signs/Physical Exam: Temp Pulse Resp BP Pulse Ox 98.6 F 78 18 109/58 L 94 11/02/20 11:44 11/02/20 11:44 11/02/20 11:44 11/02/20 11:44 11/02/20 11:44 General: Alert, In no apparent distress, Obese Neck: Supple Respiratory: Clear to auscultation bilaterally, Normal air movement Cardiovascular: Regular rate/rhythm, Normal S1 S2 Gastrointestinal: Soft and benign, No tenderness Musculoskeletal: Other (Bilateral lower extremity lymphedema) Integumentary: Erythema (Bilateral lower extremity erythema, left much greater than right.), Other Neurological: Other (No focal deficit.) Laboratory Data at Discharge: WBC 10.4 K/uL (4.3-10.9) 11/02/20 02:15 Hgb 11.8 g/dL (13.6-17.9) L 11/02/20 02:15 Hct 35.9 % (39.6-49.0) L 11/02/20 02:15 Plt Count 226 K/uL (152-406) 11/02/20 02:15 Sodium 139 mmol/L (136-145) 11/02/20 02:15 Potassium 3.7 mmol/L (3.5-5.1) 11/02/20 02:15 BUN 13 mg/dL (7-18) 11/02/20 02:15 Creatinine 0.79 mg/dL (0.55-1.3) 11/02/20 02:15 Glucose 87 mg/dL (74-106) 11/02/20 02:15 Total Bilirubin 0.6 mg/dL (0.2-1.0) 11/02/20 02:15 AST 15 U/L (15-37) 11/02/20 02:15 ALT 22 U/L (12-78) 11/02/20 02:15 Alkaline Phosphatase 65 U/L (45-117) 11/02/20 02:15 Home Medications: Amox/Clavulanate [Augmentin 875-125 Tab] 1 each PO BID #20 tab 11/02/20 Doxycycline Hyclate [Vibramycin] 100 mg PO BID #14 capsule 11/02/20 New Medications: Amox/Clavulanate [Augmentin 875-125 Tab] 1 each PO BID #20 tab Doxycycline Hyclate [Vibramycin] 100 mg PO BID #14 capsule Diet: AHA Activity: Keep lower extremity elevated in sitting or lying position. Followup: Shaista Turner, DO [Primary Care Provider] - (CALL TO MAKE AN APPOINTMENT)
[2020-11-02] MEDS ORDERED: VANCOMYCIN 2 GM in NA CHLORIDE 0.9% 500 ML IVPB SCH (15:00)
[2020-11-02] MEDS ORDERED: VANCOMYCIN/NS 1 gm 1 GM/250 ML BAG IVPB SCH (15:00)
[2020-11-02] MEDS ORDERED: ENOXAPARIN 40 MG/0.4 ML SQ SCH (17:00)
[2020-11-03] MEDS ORDERED: Levofloxacin500mg IV 500 MG/100 ML BAG IV SCH (03:00)
== END 2020-11-02 13:45 | disposition home or self-care (01) ==
LOC: ER 20:35 → INTOOBSV 11-02 03:05 → ERHOLD 11-02 03:05
PROVIDERS: ADMIT Internal Medicine; ATTEND Internal Medicine
DX: L03.116 Cellulitis of left lower limb (principal); E66.01 Morbid (severe) obesity due to excess calories; Z68.45 Body mass index [BMI] 70 or greater, adult; I89.0 Lymphedema, not elsewhere classified; J45.909 Unspecified asthma, uncomplicated; G47.30 Sleep apnea, unspecified; Z20.822 Contact with and (suspected) exposure to COVID-19
CPT/HCPCS: 96365; 87040 ×2; 85025; 36415; 83605; 80053; 96375; 96372; 99285; U0003; J3370 ×2; J1650; J7040; J7030

== ENCOUNTER 2021-02-07 15:41 | Emergency (ER) | payer OTHER ==
--- OUTSIDE RECORDS SUMMARY | 2021-02-07 15:44 | XMS REPORT | Continuity of Care Document ---
:1995 Author Organization [facility] t Address [address] [place] [address] Care Team Providers Name Role Phone Unavailable Unavailable Unavailable Problems This patient has no known problems. Allergies, Adverse Reactions, Alerts This patient has no known allergies or adverse reactions. Medications Ordered Filled Start Stop Current Ordering Indication Dosage Frequency Signature Comments Components Source Medication Medication Date Date Medication? Clinician (SIG) Name Name Narciso Stuart 2020- No [facility] [address] [facility] Ventolin Ventolin Yes Na Turner [address] [facility]FA HFA 2-13 [facility] Celexa Celexa Yes Na Turner [address] [facility] Na [facility] [address] [facility] All[facility] Multivitami Multivitami Yes Na Turner not [facility] n Adult n Adult defined [facility] Na Turner not [facility] defined [facility] Lisinopril- Lisinopril- Yes Na Turner [address] [facility] Hydrochloro Hydrochloro [facility] - thiazide thiazide [facility] Ranitidine Ranitidine Yes Na Turner [address] [facility] HCl HCl [facility] Immunizations Ordered Filled Immunization Date Status Comments Sour e Immunization Name Name Lovex - Flucelvax - 2018-12-[address] [facility] - multidose vial multidose vial 00:00:00 [facility] Procedures This patient has no known procedures. Encounters Start End Encounter Admission Attending Care Care Encounter Source Date/Time Date/Time Type Type Clinicians Facility Department ID 2020-12-26 2020-12-26 Outpatient [facility] [id number] [facility] 2020-08-03 2020-08-03 Outpatient [facility] [id number] [facility] 2020-07-17 2020-07-17 Outpatient [facility] [id number] [facility] 2020-07-13 2020-07-13 Outpatient [facility] [id number] [facility] 2020-07-10 2020-07-10 Outpatient [facility] [id number] [facility] 2020-06-28 2020-06-28 [facility] [id number] [facility] 13[facility]00 13[facility]00[facility]00 [facility] 2020-06-21 2020-06-21 [facility] [id number] [facility] 15:38:00 15:38:00 [facility] [employer] [facility] - [facility] Out[facility] Clinics 2020-04-24 2020-04-24 [facility] [id number] 14:00:00 14:00:00 [facility] Medicine Outpat[facility] Clinics 2020-04-23 2020-04-23 [facility] [id number] 16:20:00 16:20:[address] [facility] [address] [facility] Outpat[facility] Clinics 2020-04-23 2020-04-23 [facility] [id number] 09:55:00 09:55:[address] [facility] [address] [facility] Medicine Outpat[facility] ent Clinics 2020-04-13 2020-04-13 [facility] [id number] 15:15:00 15:15:00 [employer] [facility] - Drive [facility] Outpati ent Clinics 2020-04-09 2020-04-09 [facility] [id number] 14[facility]00:00 14:00:00 [facility] [employer] [facility] - [facility] [facility] Medicine Outpati [facility] Clinics 2020-02-24 2020-02-24 [facility] [id number] 16:06:00 16:06:00 [employer] - [place] Medicine l Medicine Outpati ent Clinics 2019-08-31 2019-08-31 [facility] [id number] 11:40:00 11:40:00 [employer] - [place] [facility] Medicine Outpati ent Clinics 2019-08-12 2019-08-12 [facility] [id number] 08:00:00 08:00:00 [employer] [facility] - Drive [facility] Medicine Outpati ent Clinics 2019-08-02 2019-08-02 [facility] [id number] 14:20:00 14:20:00 t [employer] - [place] [facility] Medicine Outpati ent Clinics 2019-07-25 2019-07-25 [facility] [id number] 14:20:00 14:20:00 [employer] s - Drive [facility] Medicine Outpati ent Clinics 2019-05-05 2019-05-05 [facility] [id number] 13:20:00 13:20:00 [employer] - [place] [facility] Medicine Outpati ent Clinics 2019-01-31 2019-01-31 [facility] [id number] 15:00:00 15:00:00 t [employer] - [place] [facility] Medicine Outpati ent Clinics 2018-12-16 2018-12-16 [facility] [id number] 14:15:00 14:15:00 [employer] - [place] [facility] Medicine Outpati ent Clinics 2018-11-01 2018-11-01 [facility] [id number] [facility] 09:00:00 09:00:00 [employer] - [place] [facility] Medicine Outpati ent Clinics 2018-06-18 2018-06-18 [facility] [id number] [facility] 14:40:00 14:40:00 [employer] - [place] [facility] Medicine Outpati ent Clinics 2018-04-19 2018-04-19 [facility] [id number] 10:30:00 10:30:00 [employer] - [place] [facility] Medicine Outpat[facility] ent Clinics Results This patient has no known results.
--- NOTE | 2021-02-07 18:14 | EDPHYS ---
Physician Documentation [facility] Name: Donato Anderson Age: 25 yrs Sex: Male : 1995 Arrival Date: 02/07/2021 Time: 15:42 Bed 5 Private MD: ED Physician Clyde Suresh HPI: 02/07 18:08 This 25 yrs old Male presents to ER via Ambulatory with complaints of Leg rn Swelling - redness/fever. 18:08 The patient presents with cellulitis of the right leg. Description: erythematous, warm. rn Onset: The symptoms/episode began/occurred yesterday. Possible cause(s): unknown. Associated signs and symptoms: Pertinent positives: erythema, swelling, Pertinent negatives: discharge, drainage. Modifying factors: the symptoms are alleviated by repositioning , the symptoms are aggravated by walking, touching. Severity of symptoms: At their worst the symptoms were mild, in the emergency department the symptoms are unchanged. The patient has experienced similar episodes in the past. The patient has not recently seen a physician. Reports redness to RLE and subjective fever, began yesterday, got a little better, feels chills. No trauma. + chronic lymphedema RLE. . Historical: - Allergies: 16:45 unknown antibiotics; ca1 - PMHx: 16:45 Asthma; Sleep Apnea; Obesity; ca1 - PSHx: 16:45 None; ca1 - Immunization history:: Flu vaccine is not up to date. - Social history:: Smoking status: Patient denies any tobacco usage or history of. - Family history:: not pertinent. - Hospitalizations: : No recent hospitalization is reported. ROS: 18:08 Constitutional: + subjective fever and chills Cardiovascular: Negative for chest pain, rn palpitations Respiratory: Negative for shortness of breath, cough, wheezing, and pleuritic chest pain, MS/Extremity: + redness to RLE, no drainage, no open wounds, + chronic lymphedema Skin: + warm RLE Exam: 18:08 Constitutional: Obese male, ambulatory to room without difficulty. Cardiovascular: rn Regular rate and rhythm. No pulse deficits. Respiratory: No increased work of breathing, no retractions or nasal flaring. Skin: Warm, + RLE with erythema, + dermarcation below right knee, no drainage, no open wounds, no proximal streaking, no fluctuance. MS/ Extremity: Pulses equal, no cyanosis. No calf tenderness. Vital Signs: 16:40 BP 139 / 72; Pulse 94; Resp 16 S; Temp 97.7; Pulse Ox 99% on R/A; Weight 225.89 kg (R); ca1 Height 5 ft. 5 in. (165.10 cm) (R); Pain 0/10; 18:00 BP 141 / 75; Pulse 91; Resp 17; Temp 97.8; Pulse Ox 99% ; bp 16:40 Body Mass Index 82.87 (225.89 kg, 165.10 cm) ca1 MDM: 18:00 Patient medically screened. rn 18:08 Differential diagnosis: cellulitis. Data reviewed: vital signs, nurses notes, old rn medical records, and as a result, I will discharge patient. Counseling: I had a detailed discussion with the patient and/or guardian regarding: the historical points, exam findings, and any diagnostic results supporting the discharge/admit diagnosis, the need for outpatient follow up, to return to the emergency department if symptoms worsen or persist or if there are any questions or concerns that arise at home. Special discussion: I discussed with the patient/guardian in detail that at this point there is no indication for admission to the hospital. It is understood, however, that if the symptoms persist or worsen the patient needs to return immediately for re-evaluation. Based on the history and exam findings, there is no indication for further emergent testing or inpatient evaluation. I discussed with the patient/guardian the need to see the primary care provider for further evaluation of the symptoms. 18:08 ED course: Pt non-toxic, + simple cellulitis at this point, will dc home with andriy ivey and pcp f/u. . Administered Medications: No medications were administered Disposition: 02/07/21 18:14 Discharged to Home. Impression: Cellulitis of right lower limb. - Condition is Stable. - Discharge Instructions: Cellulitis, Adult. - Prescriptions for Clindamycin HCl 300 mg Oral Capsule - take 1 capsule by ORAL route every 6 hours for 10 days; 40 capsule. - Medication Reconciliation Form, Thank You Letter, Antibiotic Education, Prescription Opioid Use form. - Follow up: Private Physician; When: As needed; Reason: Recheck today's complaints, Re-evaluation by your physician. - Problem is new. - Symptoms have improved. Signatures: Clyde Suresh MD MD rn Peltier, Brian, RN RN bp Acob, Danielle RN RN [facility] Corrections: (The following items were deleted from the chart) 18:20 18:14 02/07/2021 18:14 Discharged to Home. Impression: Cellulitis of right lower limb. bp Condition is Stable. Forms are Medication Reconciliation Form, Thank You Letter, Antibiotic Education, Prescription Opioid Use. Follow up: Private Physician; When: As needed; Reason: Recheck today's complaints, Re-evaluation by your physician. Problem is new. Symptoms have improved. rn
--- NOTE | 2021-02-07 18:14 | ER ---
Nurse's Notes [facility] Name: Donato Anderson Age: 25 yrs Sex: Male : 1995 Arrival Date: 02/07/2021 Time: 15:42 Bed 5 Private MD: Diagnosis: Cellulitis of right lower limb Presentation: 02/07 16:40 Chief complaint: Patient states: R leg swelling for a while now. Last night, I felt a ca1 shiver then I felt my R leg felt hot, went away. Last time, I was here for the same thing, they prescribed me antibiotics. Coronavirus screen: Client denies travel out of the [place] in the last 14 days. At this time, the client does not indicate any symptoms associated with coronavirus-19. Ebola Screen: Patient negative for fever greater than or equal to 101.5 degrees Fahrenheit, and additional compatible Ebola Virus Disease symptoms Patient denies exposure to infectious person. Patient denies travel to an Ebola-affected area in the 21 days before illness onset. No symptoms or risks identified at this time. Initial Sepsis Screen: Does the patient meet any 2 criteria? No. Patient's initial sepsis screen is negative. Does the patient have a suspected source of infection? No. Patient's initial sepsis screen is negative. Risk Assessment: Do you want to hurt yourself or someone else? Patient reports no desire to harm self or others. Onset of symptoms was February 07, 2021. 16:40 Method Of Arrival: Ambulatory ca1 16:40 Acuity: NEFTALY 3 ca1 Triage Assessment: 18:00 General: Appears in no apparent distress. uncomfortable, obese, Behavior is bp cooperative, appropriate for age, anxious. Pain: Complains of pain in right leg. EENT: No deficits noted. Neuro: No deficits noted. Cardiovascular: No deficits noted. Respiratory: No deficits noted. GI: No signs and/or symptoms were reported involving the gastrointestinal system. : No signs and/or symptoms were reported regarding the genitourinary system. Derm: Skin is red, Skin temperature is hot TO RLE. Musculoskeletal: Circulation, motion, and sensation intact. Range of motion: intact in all extremities, Swelling present in right leg. Historical: - Allergies: 16:45 unknown antibiotics; ca1 - PMHx: 16:45 Asthma; Sleep Apnea; Obesity; ca1 - PSHx: 16:45 None; ca1 - Immunization history:: Flu vaccine is not up to date. - Social history:: Smoking status: Patient denies any tobacco usage or history of. - Family history:: not pertinent. - Hospitalizations: : No recent hospitalization is reported. Screenin:00 Abuse screen: Denies threats or abuse. Denies injuries from another. Nutritional bp screening: No deficits noted. Tuberculosis screening: No symptoms or risk factors identified. Fall Risk None identified. Assessment: 18:00 General: SEE TRIAGE NOTE. bp 18:19 Reassessment: PT D/C HOME AMBULATORY, DX WITH CELLULITIS. bp Vital Signs: 16:40 BP 139 / 72; Pulse 94; Resp 16 S; Temp 97.7; Pulse Ox 99% on R/A; Weight 225.89 kg (R); ca1 Height 5 ft. 5 in. (165.10 cm) (R); Pain 0/10; 18:00 BP 141 / 75; Pulse 91; Resp 17; Temp 97.8; Pulse Ox 99% ; bp 16:40 Body Mass Index 82.87 (225.89 kg, 165.10 cm) ca1 ED Course: 15:42 Patient arrived in ED. as 16:44 Triage completed. ca1 16:45 Arm band placed on right wrist. ca1 18:00 Clyde Suresh MD is Attending Physician. rn 18:00 Patient has correct armband on for positive identification. Bed in low position. Call bp light in reach. Side rails up X2. 18:04 Grey Kelley, RN is Primary Nurse. bp 18:19 No provider procedures requiring assistance completed. Patient did not have IV access bp during this emergency room visit. Administered Medications: No medications were administered Outcome: 18:14 Discharge ordered by . rn 18:19 Discharged to home ambulatory. bp 18:19 Condition: stable 18:19 Discharge instructions given to patient, Instructed on discharge instructions, follow up and referral plans. medication usage, Demonstrated understanding of instructions, follow-up care, medications, Prescriptions given X 1. 18:20 Patient left the ED. bp Signatures: Erin Delong Roman, MD MD rn Peltier, Brian, RN RN bp AcobDanielle RN RN ca1
[2021-02-07 18:25] VITALS: O2SAT 99
[2021-02-07 18:27] VITALS: BP 141/75; TEMP 97.8
== END 2021-02-07 18:20 | disposition home or self-care (01) ==
LOC: ER 15:41
DX: L03.115 Cellulitis of right lower limb (principal); Z88.1 Allergy status to other antibiotic agents
CPT/HCPCS: 99282

== ENCOUNTER 2021-03-08 06:32 | Emergency (ER) | payer OTHER ==
--- OUTSIDE RECORDS SUMMARY | 2021-03-08 06:36 | XMS REPORT | Continuity of Care Document ---
:1995 Author Organization [facility] t Address [address] [place] [address] Care Team Providers Name Role Phone Unavailable Unavailable Unavailable Problems This patient has no known problems. Allergies, Adverse Reactions, Alerts This patient has no known allergies or adverse reactions. Medications Ordered Filled Start Stop Current Ordering Indication Dosage Frequency Signature Comments Components Source Medication Medication Date Date Medication? Clinician (SIG) Name Name Santyl Santyl 2020- No [facility] Mupirocin Mupirocin 2020- No Na Turner [address] [facility] 06[facility]28 [...] [facility] Yes Na Turner [address] [facility] Allergy Allergy [facility] Multivitami Multivitami Yes Na Turner not [facility] n Adult n Adult defined [facility] Na Turner not [facility] defined [facility] Lisinopril- Lisinopril- Yes Na Turner [address] [facility] Hydrochloro Hydrochloro L ukes - thiazide thiazide [facility] Ranitidine Ranitidine Yes Na Turner [address] [facility] HCl HCl at bedtime [facility] Immunizations Ordered Filled Immunization Date Status Comments [facility] e Immunization Name Name Lovex - Flucelvax - 2018-12-[address] [facility] - multidose vial multidose vial 00:00:00 [facility] Procedures This patient has no known procedures. Encounters Start End Encounter Admission Attending Care Care Encounter Source Date/Time Date/Time Type Type Clinicians Facility Department ID 2021-02-25 2021-02-25 Outpatient [facility] [id number] [facility] 2020-12-26 2020-12-26 Outpatient [facility] [id number] [facility] 2020-08-03 2020-08-03 Outpatient [facility] [id number] [facility] 2020-07-17 2020-07-17 Outpatient [facility] [id number] [facility] 2020-07-13 2020-07-13 Outpatient [facility] [id number] [facility] 2020-07-10 2020-07-10 Outpatient [facility] [id number] [facility]00 [facility] Out[facility] Clinics 2020-06-28 2020-06-28 [facility] [id number] [facility] 13:00:00 13:00:00 [facility] [place] [facility] - [facility] Medicine Outpati ent Clinics 2020-06-21 2020-06-21 [facility] [id number] 15:38:00 15:38:00 [place] [employer] [facility] - [facility] Medicine Outpati ent Clinics 2020-04-24 2020-04-24 [facility] [id number] 14:00:00 14:00:00 [facility] s Road [facility] Medicine Outpati ent Clinics 2020-04-23 2020-04-23 [facility] [id number] 16:20:00 16:20:[address] [facility] [address] [facility] Medicine Outpati ent Clinics 2020-04-23 2020-04-23 [facility] [id number] 09:55:00 09:55:00 [facility] Road [facility] Medicine Outpati ent Clinics 2020-04-13 2020-04-13 [facility] [id number] 15:15:00 15:15:00 [place] [employer] - [address] [facility] Medicine Outpati ent Clinics 2020-04-09 2020-04-09 [facility] [id number] 14:00:00 14:00:00 [place] [employer] - [address] [facility] Medicine Outpati ent Clinics 2020-02-24 2020-02-24 [facility] [id number] 16:06:00 16:06:00 [place] [employer] - [address] [facility] Medicine Outpati ent Clinics 2019-08-31 2019-08-31 [facility] [id number] 11:40:00 11:40:00 [place] [employer] - [address] [facility] Medicine Outpati ent Clinics 2019-08-12 2019-08-12 [facility] [id number] 08:00:00 08:00:00 [place] [employer] s - Drive [facility] l Medicine Outpati ent Clinics 2019-08-02 2019-08-02 [facility] [id number] 14:20:00 14:20:00 [place] [employer] s - Drive [facility] l Medicine Outpati ent Clinics 2019-07-25 2019-07-25 [facility] [id number] 14:20:00 14:20:00 [place] [employer] s - Drive [facility] l Medicine Outpati ent Clinics 2019-05-05 2019-05-05 [facility] [id number] 13:20:00 13:20:00 [place] [employer] s - Drive [facility] l Medicine Outpati ent Clinics 2019-01-31 2019-01-31 [facility] [id number] [address] 15:00:00 15:00:00 [place] [employer] s - Drive [facility] Medicine Outpati ent Clinics 2018-12-16 2018-12-16 [facility] [id number] 14:15:00 14:15:00 [place] [employer] - [address] [facility] Medicine Outpati ent Clinics 2018-11-01 2018-11-01 [facility] [id number] 09:00:00 09:00:00 [place] [employer] - [employer] [facility] l Medicine Outpati ent Clinics 2018-06-18 2018-06-18 [facility] [id number] 14:40:00 14:40:00 [place] [employer] - [address] [facility] l Medicine Outpati ent Clinics 2018-04-19 2018-04-19 [facility] [id number] 10:30:00 10:30:00 [place] [employer] - Drive [facility] Medicine Outpati ent Clinics Results This patient has no known results.
--- NOTE | 2021-03-08 10:26 | RAD REPORT ---
EXAM DESCRIPTION: US - Lower Extremity Arterial Bilat - 03/08/2021 10:00 am CLINICAL HISTORY: PAIN COMPARISON: No comparisons TECHNIQUE: Bilateral lower extremity arterial Doppler examination was performed with adrien diaz FINDINGS: Triphasic waveforms are seen throughout both lower extremity arterial systems to the level of the aixa salis pedis arteries. No evidence of stenosis or occlusion bilaterally. IMPRESSION: No evidence of significant peripheral vascular disease.
--- NOTE | 2021-03-08 10:26 | RAD REPORT ---
EXAM DESCRIPTION: US - Extrem Venous W Compress Eleazar - 03/08/2021 10:00 am CLINICAL HISTORY: PAIN Bilateral leg edema and swelling. COMPARISON: Extremity Venous Uni Ltd dated 06/20/2020 TECHNIQUE: Real-time sonographic interrogation of the left and right lower extremity deep venous sys tems was performed. FINDINGS: Normal compressibility, flow augmentation, phasic flow and spontaneous flow is identified in both the left and right lower extremity deep venous systems. IMPRESSION: No sonographic evidence of left or right lower extremity deep venous thrombosis.
--- NOTE | 2021-03-08 11:18 | ER ---
Nurse's Notes [facility] Name: Donato Anderson Age: 26 yrs Sex: Male : 1995 Arrival Date: 03/08/2021 Time: 06:50 Bed 15 Private MD: Diagnosis: Lower Extremity Pain/Calf Pain Left Presentation: 03/08 07:10 Chief complaint: Bilateral lower leg pain x 1 month, Recently seen by specialist in [facility] and "had the veins in the legs closed because the blood was not liquid enough, we are worried it is not closed anymore but I don't have insurance so they told me to walk 30 minutes a day and see if that helps.". Coronavirus screen: At this time, the client does not indicate any symptoms associated with coronavirus-19. Ebola Screen: No symptoms or risks identified at this time. Initial Sepsis Screen: Does the patient meet any 2 criteria? No. Patient's initial sepsis screen is negative. Does the patient have a suspected source of infection? No. Patient's initial sepsis screen is negative. Risk Assessment: Do you want to hurt yourself or someone else? Patient reports no desire to harm self or others. Onset of symptoms was March 08, 2021. 07:10 Method Of Arrival: Ambulatory hb 07:10 Acuity: NEFTALY 3 hb Triage Assessment: 07:15 General: Appears in no apparent distress. Behavior is calm, cooperative. Pain: Pain hb currently is 6 out of 10 on a pain scale. EENT: No signs and/or symptoms were reported regarding the EENT system. Neuro: Level of Consciousness is awake, alert, obeys commands, Oriented to person, place, time, situation. Cardiovascular: Patient's skin is warm and dry. Respiratory: Respiratory effort is even, unlabored, Respiratory pattern is regular, symmetrical. GI: No signs and/or symptoms were reported involving the gastrointestinal system. : No signs and/or symptoms were reported regarding the genitourinary system. Derm: Skin is pink, warm \\T\\ dry. Musculoskeletal: Reports bilateral lower leg pain, worse on left. Historical: - Allergies: 08:14 unknown antibiotics; hb 08:15 PENICILLINS; hb - PMHx: 08:14 Asthma; Obesity; Sleep Apnea; hb - PSHx: 08:14 None; hb - Immunization history:: Adult Immunizations up to date. - Social history:: Smoking status: Patient denies any tobacco usage or history of. Screenin:20 Abuse screen: Denies threats or abuse. Denies injuries from another. Nutritional hb screening: No deficits noted. Tuberculosis screening: No symptoms or risk factors identified. Fall Risk None identified. Assessment: 07:16 General: see triage. hb 10:56 Reassessment: Patient appears in no apparent distress at this time. No changes from vg1 previously documented assessment. Patient and/or family updated on plan of care and expected duration. Pain level reassessed. Patient is alert, oriented x 3, equal unlabored respirations, skin warm/dry/pink. Patient denies pain at this time. Vital Signs: 07:10 BP 148 / 88; Pulse 56; Resp 16; Temp 97.7; Pulse Ox 100% on R/A; hb 10:56 BP 137 / 83; Pulse 64; Resp 18; Pulse Ox 96% on R/A; vg1 11:30 BP 122 / 71; Pulse 67; Resp 16; Pulse Ox 98% on R/A; vg1 ED Course: 06:50 Patient arrived in ED. bp1 07:12 Triage completed. hb 07:20 Patient has correct armband on for positive identification. hb 08:15 Arm band placed on. hb 08:21 Jin Heart MD is Attending Physician. kdr 10:00 US Extremity Venous W Compression Eleazar In Process Unspecified. EDMS 10:00 US LE Arterial Bilateral In Process Unspecified. EDMS 10:56 Melissa Anderson, RN is Primary Nurse. vg1 11:30 No provider procedures requiring assistance completed. Patient did not have IV access vg1 during this emergency room visit. Administered Medications: No medications were administered Outcome: 11:17 Discharge ordered by . kdr 11:30 Discharged to home ambulatory. vg1 11:30 Condition: stable 11:30 Discharge instructions given to patient, Instructed on discharge instructions, follow up and referral plans. Demonstrated understanding of instructions, follow-up care. 11:30 Patient left the ED. vg1 Signatures: Dispatcher [employer] EDMS Jin Heart MD MD kdr Cassie Washington RN RN hb Melissa Anderson RN RN vg1 Martita Gruber bp1
--- NOTE | 2021-03-08 11:18 | EDPHYS ---
Physician Documentation [facility] Name: Donato Anderson Age: 26 yrs Sex: Male : 1995 Arrival Date: 03/08/2021 Time: 06:50 Bed 15 Private MD: ED Physician Jin Heart HPI: 03/08 10:31 This 26 yrs old Male presents to ER via Ambulatory with complaints of Leg Pain.kdr 10:31 The patient presents with pain, that is acute. The complaints affect the left calf. kdr Context: The problem was sustained at home, resulted from an unknown cause, the patient can fully bear weight, the patient is able to ambulate, without difficulty, Problem is a result from a previous injury: No. The patient did have a vein surgery on the last 10 days on the same leg and his mother is concerned he may have a blood clot. Onset: The symptoms/episode began/occurred gradually, 2 day(s) ago. Modifying factors: The symptoms are alleviated by nothing. the symptoms are aggravated by nothing. Associated signs and symptoms: The patient has no apparent associated signs or symptoms. Treatment prior to arrival includes: no previous treatment. Severity of symptoms: At their worst the symptoms were very mild, in the emergency department the symptoms are unchanged. The patient has experienced similar episodes in the past, multiple times. The patient has not recently seen a physician. Historical: - Allergies: 08:14 unknown antibiotics; hb 08:15 PENICILLINS; hb - PMHx: 08:14 Asthma; Obesity; Sleep Apnea; hb - PSHx: 08:14 None; hb - Immunization history:: Adult Immunizations up to date. - Social history:: Smoking status: Patient denies any tobacco usage or history of. ROS: 10:31 Constitutional: Negative for fever, chills, and weight loss, Eyes: Negative for injury, kdr pain, redness, and discharge, Neck: Negative for injury, pain, and swelling, Cardiovascular: Negative for chest pain, palpitations, and edema, Respiratory: Negative for shortness of breath, cough, wheezing, and pleuritic chest pain, Abdomen/GI: Negative for abdominal pain, nausea, vomiting, diarrhea, and constipation, Back: Negative for injury and pain, : Negative for injury, bleeding, discharge, and swelling, Skin: Negative for injury, rash, and discoloration, Neuro: Negative for headache, weakness, numbness, tingling, and seizure activity. Psych: Negative for depression, anxiety, suicide ideation, homicidal ideation, and hallucinations, Allergy/Immunology: Negative for hives, rash, and allergies, Endocrine: Negative for neck swelling, polydipsia, polyuria, polyphagia, and marked weight changes, Hematologic/Lymphatic: Negative for swollen nodes, abnormal bleeding, and unusual bruising. 10:31 MS/extremity: Positive for erythema, pain, of the left calf. Exam: 10:31 Constitutional: This is a well developed, well nourished patient who is awake, alert, kdr and in no acute distress. Head/Face: Normocephalic, atraumatic. Eyes: Pupils equal round and reactive to light, extra-ocular motions intact. Lids and lashes normal. Conjunctiva and sclera are non-icteric and not injected. Cornea within normal limits. Periorbital areas with no swelling, redness, or edema. Neck: Trachea midline, no thyromegaly or masses palpated, and no cervical lymphadenopathy. Supple, full range of motion without nuchal rigidity, or vertebral point tenderness. No Meningismus. Chest/axilla: Normal chest wall appearance and motion. Nontender with no deformity. No lesions are appreciated. Cardiovascular: Regular rate and rhythm with a normal S1 and S2. No gallops, murmurs, or rubs. Normal PMI, no JVD. No pulse deficits. Respiratory: Lungs have equal breath sounds bilaterally, clear to auscultation and percussion. No rales, rhonchi or wheezes noted. No increased work of breathing, no retractions or nasal flaring. Abdomen/GI: Soft, non-tender, with normal bowel sounds. No distension or tympany. No guarding or rebound. No evidence of tenderness throughout. Back: No spinal tenderness. No costovertebral tenderness. Full range of motion. MS/ Extremity: Pulses equal, no cyanosis. Neurovascular intact. Full, normal range of motion. Neuro: Awake and alert, GCS 15, oriented to person, place, time, and situation. Cranial nerves II-XII grossly intact. Motor strength 5/5 in all extremities. Sensory grossly intact. Cerebellar exam normal. Normal gait. Psych: Awake, alert, with orientation to person, place and time. Behavior, mood, and affect are within normal limits. 10:31 Skin: Appearance: Vital Signs: 07:10 BP 148 / 88; Pulse 56; Resp 16; Temp 97.7; Pulse Ox 100% on R/A; hb 10:56 BP 137 / 83; Pulse 64; Resp 18; Pulse Ox 96% on R/A; vg1 11:30 BP 122 / 71; Pulse 67; Resp 16; Pulse Ox 98% on R/A; vg1 MDM: 11:17 Patient medically screened. kdr 13:06 Data reviewed: vital signs, nurses notes, lab test result(s), radiologic studies. kdr Counseling: I had a detailed discussion with the patient and/or guardian regarding: the historical points, exam findings, and any diagnostic results supporting the discharge/admit diagnosis, lab results, radiology results, the need for outpatient follow up. 03/08 08:22 Order name: Extremity Venous W Compression Eleazar; Complete Time: 11:11 kdr 03/08 08:22 Order name: LE Arterial Bilateral; Complete Time: 11:11 kdr Administered Medications: No medications were administered Disposition: 03/08/21 11:17 Discharged to Home. Impression: Lower Extremity Pain/Calf Pain Left. - Condition is Stable. - Discharge Instructions: Leg Cramps. - Medication Reconciliation Form, Thank You Letter form. - Follow up: Private Physician; When: 2 - 3 days; Reason: If symptoms return, Further diagnostic work-up, Recheck today's complaints, Continuance of care, Re-evaluation by your physician. - Problem is new. - Symptoms have improved. - Notes: Tylenol/Motrin for pain Signatures: Dispatcher [employer] EDWY Jin Heart MD MD kdr Cassie Washington, RN RN Melissa Anderson, RN RN vg1 Corrections: (The following items were deleted from the chart) 11:30 11:17 03/08/2021 11:17 Discharged to Home. Impression: Lower Extremity Pain/Calf Pain vg1 Left. Condition is Stable. Forms are Medication Reconciliation Form, Thank You Letter, Antibiotic Education, Prescription Opioid Use. Follow up: Private Physician; When: 2 - 3 days; Reason: If symptoms return, Further diagnostic work-up, Recheck today's complaints, Continuance of care, Re-evaluation by your physician. Problem is new. Symptoms have improved. kdr
[2021-03-08 12:26] VITALS: TEMP 97.7
[2021-03-08 12:30] VITALS: BP 122/71; O2SAT 98
== END 2021-03-08 11:30 | disposition home or self-care (01) ==
LOC: ER 06:32
DX: M79.662 Pain in left lower leg (principal); Z88.0 Allergy status to penicillin; Z88.1 Allergy status to other antibiotic agents
CPT/HCPCS: 93925; 93970; 99283

== ENCOUNTER 2021-03-30 20:08 | Emergency (ER) | payer OTHER ==
[2021-03-30] MEDS ORDERED: ONDANSETRON 4 MG/2 ML VIAL ONE (22:26)
[2021-03-30] MEDS ORDERED: MORPHINE 4 MG/ML SYR ONE (22:26)
[2021-03-30 22:29] LABS: Absolute Lymphocytes (CBC) 1.3 K/uL (0.7-4.9); Basophils % 1.1 % (0-1.3); Lymphocytes % 15.7 % (15.3-44.8); RBC Red Blood Cell Count 4.28 M/uL (4.33-5.43)
[2021-03-30 22:47] LABS: Protime INR 1.18
[2021-03-30 22:48] LABS: ALT/SGPT 28 U/L (12-78); AST/SGOT 14 U/L (15-37); Albumin 2.8 g/dL (3.4-5.0); Alkaline Phosphatase 84 U/L (45-117); BUN Blood Urea Nitrogen 9 mg/dL (7-18); Bicarbonate 29 mmol/L (21-32); Bilirubin Direct 0.2 mg/dL (0-0.2); Bilirubin Total 0.4 mg/dL (0.2-1.0); Glucose Level 87 mg/dL (74-106); Potassium 3.6 mmol/L (3.5-5.1); Protein, Total 8.1 g/dL (6.4-8.2); Sodium Level 141 mmol/L (136-145)
[2021-03-31] MEDS ORDERED: CLINDAMYCIN 900MG/D5W 900 MG/50 ML IVPB IV ONE (00:51)
[2021-03-31] MEDS ORDERED: NA CHLORIDE 0.9% 250 ML ONE (00:51)
--- NOTE | 2021-03-31 01:07 | ER ---
Nurse's Notes [facility] Name: Donato Anderson Age: 26 yrs Sex: Male : 1995 Arrival Date: 03/30/2021 Time: 20:12 Bed 5 Private MD: Diagnosis: Cellulitis, Right Lower Extremity Presentation: 03/30 20:43 Chief complaint: Patient states: Right leg pain that started to feel pain and ea tightness, reports he is going to have vein surgery next month due to poor circulation to right leg. Coronavirus screen: At this time, the client does not indicate any symptoms associated with coronavirus-19. Ebola Screen: No symptoms or risks identified at this time. Initial Sepsis Screen: Does the patient meet any 2 criteria? No. Patient's initial sepsis screen is negative. Does the patient have a suspected source of infection? No. Patient's initial sepsis screen is negative. Risk Assessment: Do you want to hurt yourself or someone else? Patient reports no desire to harm self or others. Onset of symptoms was March 30, 2021. 20:43 Method Of Arrival: Ambulatory ea 20:43 Acuity: NEFTALY 3 ea Triage Assessment: 20:46 General: Appears in no apparent distress. Behavior is appropriate for age. Pain: ea Complains of pain in right leg. Historical: - Allergies: 20:45 PENICILLINS; ea 20:45 unknown antibiotics; ea - PMHx: 20:45 Asthma; Obesity; Sleep Apnea; ea - PSHx: 20:45 None; ea - Immunization history:: Adult Immunizations up to date. - Social history:: Smoking status: Patient denies any tobacco usage or history of. Screenin:45 Abuse screen: Denies threats or abuse. Nutritional screening: No deficits noted. ea Tuberculosis screening: No symptoms or risk factors identified. Fall Risk None identified. Assessment: 22:15 General: Appears in no apparent distress. Behavior is calm, cooperative. Pain: lp1 Complains of pain in right lower leg Pain currently is 7 out of 10 on a pain scale. Quality of pain is described as pressure. Neuro: Level of Consciousness is awake, alert, obeys commands, Oriented to person, place, time, situation. Cardiovascular: Capillary refill < 3 seconds in bilateral toes Patient's skin is warm and dry. Edema is 4+ to right midcalf, right ankle and right foot. Respiratory: Respiratory effort is even, unlabored. GI: Abdomen is obese. : No signs and/or symptoms were reported regarding the genitourinary system. EENT: No signs and/or symptoms were reported regarding the EENT system. Derm: Skin is intact, Skin is dry, Skin is normal, Skin temperature is right lower leg, hot to touch, redness. Musculoskeletal: Circulation, motion, and sensation intact. Swelling present in right lower leg. 23:09 Reassessment: Ultrasound at bedside. lp1 03/31 00:00 Reassessment: Patient appears in no apparent distress at this time. Patient and/or lp1 family updated on plan of care and expected duration. Pain level reassessed. Patient resting, eyes closed, respirations even, unlabored. Vital Signs: 03/30 20:43 BP 149 / 91; Pulse 88; Resp 18; Temp 98.6; Pulse Ox 95% ; Weight 222.26 kg; Height 5 ea ft. 7 in. (170.18 cm); 22:00 BP 143 / 77; Pulse 75; Resp 20; Pulse Ox 98% on R/A; Pain 7/10; lp1 23:00 BP 122 / 63; Pulse 71; Resp 18; Pulse Ox 95% on R/A; lp1 03/31 00:00 BP 127 / 63; Pulse 72; Resp 20; Pulse Ox 94% on R/A; lp1 01:00 BP 116 / 67; Pulse 74; Resp 18; Pulse Ox 97% on R/A; Pain 3/10; lp1 03/30 20:43 Body Mass Index 76.74 (222.26 kg, 170.18 cm) ea ED Course: 03/30 20:12 Patient arrived in ED. bp1 20:45 Triage completed. ea 21:36 Guillermo Reed MD is Attending Physician. mh7 21:40 Teo Goldstein, ANGEL is Primary Nurse. rr5 22:15 Inserted saline lock: 22 gauge in right forearm, using aseptic technique. Blood lp1 collected. 22:22 Yani Davis, RN is Primary Nurse. lp1 22:27 Patient has correct armband on for positive identification. Pulse ox on. NIBP on. lp1 22:27 Arm band placed on. lp1 23:28 US Extremity Venous Unilateral Ltd In Process Unspecified. EDMS 23:29 Ultrasound completed. Patient tolerated well. Notified ED Physician saad. sg3 03/31 00:48 No provider procedures requiring assistance completed. lp1 01:30 IV discontinued, No redness/swelling at site. Pressure dressing applied. lp1 Administered Medications: 03/30 22:23 Drug: morphine 4 mg Route: IVP; Site: right forearm; lp1 23:30 Follow up: Response: Pain is decreased lp1 22:23 Drug: Zofran (Ondansetron) 4 mg Route: IVP; Site: right forearm; lp1 23:30 Follow up: Response: No adverse reaction lp1 03/31 00:41 Drug: Clindamycin 900 mg Route: IVPB; Infused Over: 30 mins; Site: right forearm; rr5 01:27 Follow up: IV Status: Completed infusion; IV Intake: 50ml lp1 Intake: 01:27 IV: 50ml; Total: 50ml. 1 Outcome: 01:06 Discharge ordered by . [facility] 01:30 Discharged to home ambulatory. lp1 01:30 Condition: good 01:30 Discharge instructions given to patient, Instructed on discharge instructions, follow up and referral plans. wound care, Demonstrated understanding of instructions, follow-up care, medications, Prescriptions given X 1. 01:33 Patient left the ED. lp1 Signatures: Dispatcher [employer] EDMS Yani Davis, RN RN lp1 Citlaly Nina RN Angelica Barboza ea sg3 Teo Goldstein RN RN rr5 Martita Gruber Maurice, MD MD 7 Corrections: (The following items were deleted from the chart) 03/30 20:46 20:46 Patient has correct armband on for positive identification. Bed in low position. ea Call light in reach. Side rails up X2. ea
--- NOTE | 2021-03-31 01:07 | EDPHYS ---
Physician Documentation [facility] Name: Donato Anderson Age: 26 yrs Sex: Male : 1995 Arrival Date: 03/30/2021 Time: 20:12 Bed 5 Private MD: ED Physician Guillermo Reed HPI: 03/30 22:38 This 26 yrs old Male presents to ER via Ambulatory with complaints of Leg Pain.mh7 22:38 The patient presents with pain, that is acute, swelling. The patient presents with mh7 tenderness. The complaints affect the right leg. Context: The problem was sustained at an unknown site, resulted from an unknown cause, the patient can fully bear weight, the patient is able to ambulate, without difficulty, Problem is a result from a previous injury: No. Onset: The symptoms/episode began/occurred last night. Modifying factors: The symptoms are alleviated by nothing. the symptoms are aggravated by touching. Associated signs and symptoms: Pertinent positives: calf tenderness, swelling, warmth, Pertinent negatives fever, nausea, numbness, rash, tingling, vomiting, weakness. Treatment prior to arrival includes: no previous treatment. Severity of symptoms: At their worst the symptoms were moderate, last night, in the emergency department the symptoms are unchanged. The patient has experienced similar episodes in the past, a few times. Historical: - Allergies: 20:45 PENICILLINS; ea 20:45 unknown antibiotics; ea - PMHx: 20:45 Asthma; Obesity; Sleep Apnea; ea - PSHx: 20:45 None; ea - Immunization history:: Adult Immunizations up to date. - Social history:: Smoking status: Patient denies any tobacco usage or history of. ROS: 22:38 ENT: Negative for injury, pain, and discharge, Neck: Negative for injury, pain, and mh7 swelling, Cardiovascular: Negative for chest pain, palpitations, and edema, Respiratory: Negative for shortness of breath, cough, wheezing, and pleuritic chest pain, Abdomen/GI: Negative for abdominal pain, nausea, vomiting, diarrhea, and constipation, Back: Negative for injury and pain, : Negative for injury, bleeding, discharge, and swelling, Neuro: Negative for headache, weakness, numbness, tingling, and seizure, Psych: Negative for depression, anxiety, suicide ideation, homicidal ideation, and hallucinations, Allergy/Immunology: Negative for hives, rash, and allergies, Endocrine: Negative for neck swelling, polydipsia, polyuria, polyphagia, and marked weight changes, Hematologic/Lymphatic: Negative for swollen nodes, abnormal bleeding, and unusual bruising. 22:38 Constitutional: Positive for chills, Negative for body aches, fatigue, fever. Exam: 22:38 Constitutional: This is a well developed, well nourished patient who is awake, alert, mh7 and in no acute distress. Head/Face: Normocephalic, atraumatic. Eyes: Pupils equal round and reactive to light, extra-ocular motions intact. Lids and lashes normal. Conjunctiva and sclera are non-icteric and not injected. Cornea within normal limits. Periorbital areas with no swelling, redness, or edema. Neck: Trachea midline, no thyromegaly or masses palpated, and no cervical lymphadenopathy. Supple, full range of motion without nuchal rigidity, or vertebral point tenderness. No Meningismus. Chest/axilla: Normal chest wall appearance and motion. Nontender with no deformity. No lesions are appreciated. Cardiovascular: Regular rate and rhythm with a normal S1 and S2. No gallops, murmurs, or rubs. Normal PMI, no JVD. No pulse deficits. Respiratory: Lungs have equal breath sounds bilaterally, clear to auscultation and percussion. No rales, rhonchi or wheezes noted. No increased work of breathing, no retractions or nasal flaring. Abdomen/GI: Soft, non-tender, with normal bowel sounds. No distension or tympany. No guarding or rebound. No evidence of tenderness throughout. Back: No spinal tenderness. No costovertebral tenderness. Full range of motion. 22:38 Neuro: Awake and alert, GCS 15, oriented to person, place, time, and situation. Cranial nerves II-XII grossly intact. Motor strength 5/5 in all extremities. Sensory grossly intact. Cerebellar exam normal. Normal gait. Psych: Awake, alert, with orientation to person, place and time. Behavior, mood, and affect are within normal limits. 22:38 Musculoskeletal/extremity: Extremities: noted in the right leg: erythema, pain, swelling, tenderness, ROM: intact in all extremities, Circulation is intact in all extremities. Sensation intact. Joints: All joints appear normal with full range of motion. Weight bearing: able to fully bear weight, without difficulty, Tendon exam: specific tendon testing normal through active and passive range of motion DVT Exam: pain, that is mild, of the right leg, swelling, that is moderate, of the right leg, tenderness, that is mild, of the right leg, erythema, that is moderate, of the right leg, increased warmth, that is moderate, of the right leg. 22:38 Skin: cellulitis, that is moderate, on the right leg. Vital Signs: 20:43 BP 149 / 91; Pulse 88; Resp 18; Temp 98.6; Pulse Ox 95% ; Weight 222.26 kg; Height 5 ea ft. 7 in. (170.18 cm); 22:00 BP 143 / 77; Pulse 75; Resp 20; Pulse Ox 98% on R/A; Pain 7/10; lp1 23:00 BP 122 / 63; Pulse 71; Resp 18; Pulse Ox 95% on R/A; lp1 03/31 00:00 BP 127 / 63; Pulse 72; Resp 20; Pulse Ox 94% on R/A; lp1 01:00 BP 116 / 67; Pulse 74; Resp 18; Pulse Ox 97% on R/A; Pain 3/10; lp1 06/12 20:43 Body Mass Index 76.74 (222.26 kg, 170.18 cm) ea MDM: 01:04 Differential diagnosis: DVT, Cellulitis. Data reviewed: vital signs, nurses notes, lab [facility] test result(s), CBC, electrolytes, radiologic studies, ultrasound. Data interpreted: Pulse oximetry: on room air is 96 %. Interpretation: normal. Counseling: I had a detailed discussion with the patient and/or guardian regarding: the historical points, exam findings, and any diagnostic results supporting the discharge/admit diagnosis, lab results, radiology results, the need for outpatient follow up, to return to the emergency department if symptoms worsen or persist or if there are any questions or concerns that arise at home. Response to treatment: the patient's symptoms have markedly improved after treatment. 01:06 Patient medically screened. [facility] 03/30 21:56 Order name: CBC with Diff; Complete Time: 00:28 [facility] 03/30 21:56 Order name: Basic Metabolic Panel; Complete Time: 00:28 [facility] 06/12 21:56 Order name: LFT's; Complete Time: 00:28 [facility] 03/30 21:56 Order name: Protime (+inr); Complete Time: 00:28 [facility] 03/30 21:56 Order name: Ptt, Activated; Complete Time: 00:28 [facility] 03/30 21:57 Order name: US Extremity Venous Unilateral Ltd [facility] 03/30 21:56 Order name: Saline Lock; Complete Time: 22:23 mh7 Administered Medications: 03/30 22:23 Drug: morphine 4 mg Route: IVP; Site: right forearm; lp1 23:30 Follow up: Response: Pain is decreased [facility] 22:23 Drug: Zofran (Ondansetron) 4 mg Route: IVP; Site: right forearm; lp1 23:30 Follow up: Response: No adverse reaction [facility] 03/31 00:41 Drug: Clindamycin 900 mg Route: IVPB; Infused Over: 30 mins; Site: right forearm; rr5 01:27 Follow up: IV Status: Completed infusion; IV Intake: 50ml [facility] Disposition: 03/31/21 01:06 Discharged to Home. Impression: Cellulitis, Right Lower Extremity. - Condition is Stable. - Discharge Instructions: Cellulitis, Adult, [id number]. - Prescriptions for Clindamycin HCl 300 mg Oral Capsule - take 1 capsule by ORAL route every 6 hours for 10 days; 40 capsule. - Medication Reconciliation Form, Thank You Letter, Antibiotic Education, Prescription Opioid Use form. - Follow up: Private Physician; When: 1 - 2 days; Reason: Worsening of condition, Recheck today's complaints, Continuance of care, Re-evaluation by your physician. - Problem is an acute exacerbation. - Symptoms have improved. Signatures: Dispatcher [employer] EDMS Yani Davis RN RN lp1 Citlaly Nina RN RN ea Roque, Raymond, RN RN rr5 Guillermo Reed MD MD mh7 Corrections: (The following items were deleted from the chart) 01:33 01:06 03/31/2021 01:06 Discharged to Home. Impression: Cellulitis, Right Lower lp1 Extremity. Condition is Stable. Forms are Medication Reconciliation Form, Thank You Letter, Antibiotic Education, Prescription Opioid Use. Follow up: Private Physician; When: 1 - 2 days; Reason: Worsening of condition, Recheck today's complaints, Continuance of care, Re-evaluation by your physician. Problem is an acute exacerbation. Symptoms have improved. mh7
[2021-03-31 02:59] VITALS: TEMP 98.6
[2021-03-31 03:04] VITALS: BP 122/63; O2SAT 95
--- NOTE | 2021-03-31 11:03 | RAD REPORT ---
EXAM DESCRIPTION: US - Extremity Venous Uni Ltd - 03/30/2021 11:28 pm CLINICAL HISTORY: Pain;Swelling Leg swelling and edema. COMPARISON: Extrem Venous W Compress Eleazar dated 03/08/2021 FINDINGS: Right lower extremity venous system was interrogated with Doppler technique. Normal flow, compressibility and augmentation was noted. There is no DVT present. IMPRESSION: No evidence of right lower extremity deep venous thrombosis.
== END 2021-03-31 01:33 | disposition home or self-care (01) ==
LOC: ER 20:08
DX: L03.115 Cellulitis of right lower limb (principal); Z88.0 Allergy status to penicillin; Z88.1 Allergy status to other antibiotic agents
CPT/HCPCS: 85025; 80048; 36415; 85610; 80076; 85730; 93971; J7050; J2405; 96365; 96375; 99284

== ENCOUNTER 2022-06-22 07:05 | Emergency (ER) | payer OTHER ==
--- OUTSIDE RECORDS SUMMARY | 2022-06-22 07:09 | XMS REPORT | Continuity of Care Document ---
:1995 Author Organization [facility] t Address [address] [place] [address] Care Team Providers Name Role Phone Shaista Turner Attending Clinician Unavailable Problems This patient has no known problems. Allergies, Adverse Reactions, Alerts This patient has no known allergies or adverse reactions. Medications Ordered Filled Start Stop Current Ordering Indication Dosage Frequency Signature Comments Components Source Medication Medication Date Date Medication? Clinician (SIG) Name Name Santyl Santyl 2019-0 2020- No Na Turner 1 Commo n 06-28 applicatio Spirit 00:00: 00:00 n mukul - [facility] 00 :00 thickness [facility] Mupirocin Mupirocin 2019-0 2020- No Na Turner 1 Common 06-28 applicatio Spirit 00:00: 00:00 n to - [facility] 00 :00 affected [facility] Keflex Keflex 2019-0 2020- No Na Turner 1 capsule Common 06-28 [facility] 00:00: 00:00 - [facility] 00 :00 [facility] Wellbutrin Wellbutrin 2019-0 Yes Na Turner 1 tablet Common SR SR 7-18 in am [facility] 00:00: - [facility] 00 [facility] Ergocalcife Ergocalcife 2019-0 Yes Na Turner 1 capsule Common rol rol 2-28 [facility] 00:00: - [facility] 00 [facility] Ventolin Ventolin 2018-0 Yes Na Turner 2 puffs as Common HFA HFA 2-13 needed [facility] 00:00: - [facility] 00 [facility] Celexa Celexa Yes Na Turner 1 tablet Comm on at bedtime [facility] Zyrtec Zyrtec Yes Na Turner 1 tablet Comm on Allergy Allergy [facility] Multivitami Multivitami Yes Na Turner not Common n Adult n Adult defined [facility] Saxenda Saxenda Yes Na Turner not Common defined [facility] Lisinopril- Lisinopril- Yes Na Turner 1 tablet Common Hydrochloro Hydrochloro S pirit thiazide thiazide [facility] Ranitidine Ranitidine Yes Na Turner 1 capsule Common HCl HCl at bedtime [facility] Immunizations Ordered Immunization Filled Immunization Date Status Commen ts Source Name Name Palmira Ceron Flucgingervax - 2018-12-16 Completed Common Spiri t multidose vial multidose vial 00:00:00 [facility] Procedures This patient has no known procedures. Encounters Start End Encounter Admission Attending Care Care Encounter Source Date/Time Date/Time Type Type Clinicians Facility Department ID 2022-06-04 Outpatient Turner, Na STLMLC STLMLC [id number] Common 11:04:00 [facility] 2022-03-19 Outpatient Turner, Na STLMLC STLMLC [id number] Common 08:06:00 [facility] 2022-03-04 Outpatient Turner, Na STLMLC STLMLC [id number] Common 16:44:00 [facility] 2022-02-14 Outpatient Turner, Na STLMLC STLMLC [id number] Common 15:01:01 [facility] 2021-11-29 Outpatient Turner, Na STLMLC STLMLC [id number] Common 08:53:01 [facility] 2021-11-13 Outpatient Turner, Na STLMLC STLMLC [id number] 2 Common 14:22:22 [id number] [facility] 2021-11-13 Outpatient Turner, Na STLMLC STLMLC [id number] Common 13:57:22 [id number] [facility] 2021-11-13 Outpatient Turner, Na STLMLC STLMLC [id number] 2 Common 13:53:14 [id number] [facility] 2021-11-13 Outpatient Turner, Na STLMLC STLMLC [id number] 2 Common 13:38:11 [id number] [facility] 2021-11-13 Outpatient Turner, Na STLMLC STLMLC [id number] Common 13:21:01 [id number] [facility] 2021-11-13 Outpatient Turner, Na STLMLC STLMLC [id number] 2 Common 12:48:26 [id number] [facility] 2021-11-13 Outpatient Turner, Na STLMLC STLMLC [id number] 2 Common 11:50:20 [id number] [facility] 2021-11-13 Outpatient Turner, Na STLMLC STLMLC [id number] 2 Common 11:47:13 [id number] [facility] 2021-11-13 Outpatient Turner, Na STLMLC STLMLC [id number] Common 11:21:11 [id number] [facility] 2022-06-10 2022-06-10 ambulatory STLMLC STLMLC [id number] Common 00:00:00 00:00:00 [facility] 2022-06-06 2022-06-06 ambulatory STLMLC STLMLC [id number] Common 00:00:00 00:00:00 [facility] 2022-03-14 2022-03-14 ambulatory STLMLC STLMLC [id number] Common 00:00:00 00:00:00 [facility] 2022-03-06 2022-03-06 ambulatory STLMLC STLMLC [id number] Common 00:00:00 00:00:00 [facility] 2021-12-03 2021-12-03 ambulatory STLMLC STLMLC [id number] Common 00:00:00 00:00:00 [facility] 2021-12-03 2021-12-03 ambulatory STLMLC STLMLC [id number] Common 00:00:00 00:00:00 [facility] 2021-07-26 2021-07-26 Outpatient STLMLC STLMLC [id number] Common 00:00:00 00:00:00 [facility] 2021-07-12 2021-07-12 Outpatient STLMLC STLMLC [id number] Common 00:00:00 00:00:00 [facility] 2021-06-07 2021-06-07 Outpatient STLMLC STLMLC [id number] Common 00:00:00 00:00:00 [facility] 2021-06-07 2021-06-07 Outpatient STLMLC STLMLC [id number] Common 00:00:00 00:00:00 [facility] 2021-04-18 2021-04-18 Outpatient STLMLC STLMLC [id number] Common 00:00:00 00:00:00 [facility] 2021-02-25 2021-02-25 Outpatient STLMLC STLMLC [id number] Common 00:00:00 00:00:00 [facility] 2020-12-26 2020-12-26 Outpatient STLMLC STLMLC [id number] Common 00:00:00 00:00:00 [facility] 2020-08-03 2020-08-03 Outpatient STLMLC STLMLC [id number] Common 00:00:00 00:00:00 [facility] 2020-07-17 2020-07-17 Outpatient STLMLC STLMLC [id number] Common 00:00:00 00:00:00 [facility] 2020-07-13 2020-07-13 Outpatient STLMLC STLMLC [id number] Common 00:00:00 00:00:00 [facility] 2020-07-10 2020-07-10 Outpatient STLMLC STLMLC [id number] Common 00:00:00 00:00:00 [facility] 2020-06-28 2020-06-28 [id number] Common 13:00:00 13:00:00 [address] [place] [address] [facility] 2020-06-21 2020-06-21 [facility] [id number] Common 15:38:00 15:38:00 [address] [place] [address] [facility] 2020-04-24 2020-04-24 [facility] [id number] Common 14:00:00 14:00:[address] [facility] 2020-04-23 2020-04-23 [facility] [id number] Common 16:20:00 16:20:[address] [facility] [address] [facility] 2020-04-23 2020-04-23 [facility] [id number] Common 09:55:00 09:55:00 t [facility] [address] [facility] 2020-04-13 2020-04-13 [facility] [id number] Common 15:15:00 15:15:00 [address] [place] [address] [facility] 2020-04-09 2020-04-09 [facility] [id number] Common 14:00:00 14:00:00 [address] [place] [address] [facility] 2020-02-24 2020-02-24 [facility] [id number] Common 16:06:00 16:06:00 [address] [place] [address] [facility] 2019-08-31 2019-08-31 [facility] [id number] Common 11:40:00 11:40:00 [address] [place] [address] [facility] 2019-08-12 2019-08-12 [facility] [id number] Common 08:00:00 08:00:00 [address] [place] [address] [facility] 2019-08-02 2019-08-02 [facility] [id number] Common 14:20:00 14:20:00 [address] [place] [address] [facility] 2019-07-25 2019-07-25 [facility] [id number] Common 14:20:00 14:20:00 [address] [place] [address] [facility] 2019-05-05 2019-05-05 [facility] [id number] Common 13:20:00 13:20:00 [address] [place] [address] [facility] 2019-01-31 2019-01-31 [facility] [id number] Common 15:00:00 15:00:00 [address] [place] [address] [facility] 2018-12-16 2018-12-16 [facility] [id number] Common 14:15:00 14:15:00 [address] [place] [address] [facility] 2018-11-01 2018-11-01 [facility] [id number] Common 09:00:00 09:00:00 [address] [place] [address] [facility] 2018-06-18 2018-06-18 [facility] [id number] Common 14:40:00 14:40:00 [address] [place] [address] [facility] 2018-04-19 2018-04-19 [facility] [id number] Common 10:30:00 10:30:00 [address] [place] [address] [facility] Results This patient has no known results.
[2022-06-22 07:21] LABS: Urine Blood Trace-intact (Negative); Urine Glucose Negative (Negative); Urine Protein 1+ (Negative); Urine Specific Gravity >=1.030 (1.005-1.030)
--- NOTE | 2022-06-22 07:40 | EDPHYS ---
Physician Documentation [facility] Name: Donato Anderson Age: 27 yrs Sex: Male : 1995 Arrival Date: 06/22/2022 Time: 07:08 Bed 17 Private MD: ED Physician Jin Heart HPI: 06/22 07:35 This 27 yrs old Male presents to ER via Ambulatory with complaints of Leg kdr Swelling - warm to touch. 07:35 Patient states that yesterday morning he first noticed redness and swelling and some kdr discomfort to his right lower extremity. Through the course of the day it is progressively gotten somewhat worse. He denies fever but has had subjective warmth and chills. He denies shortness of breath or chest pain.. Onset: The symptoms/episode began/occurred gradually, yesterday. Severity of symptoms: At their worst the symptoms were mild in the emergency department the symptoms are unchanged. The patient has experienced similar episodes in the past, multiple times. The patient has not recently seen a physician. Historical: - Allergies: 07:28 PENICILLINS; mb8 07:28 unknown antibiotics; mb8 - PMHx: 07:28 Asthma; Obesity; Sleep Apnea; mb8 - Immunization history:: Vaccine Information Sheet provided. - Social history:: Smoking status: Patient denies any tobacco usage or history of. ROS: 07:35 Constitutional: Negative for fever, chills, and weight loss, Eyes: Negative for injury, kdr pain, redness, and discharge, Neck: Negative for injury, pain, and swelling, Cardiovascular: Negative for chest pain, palpitations, and edema, Respiratory: Negative for shortness of breath, cough, wheezing, and pleuritic chest pain, Abdomen/GI: Negative for abdominal pain, nausea, vomiting, diarrhea, and constipation, Back: Negative for injury and pain, : Negative for injury, bleeding, discharge, and swelling, Neuro: Negative for headache, weakness, numbness, tingling, and seizure activity. Psych: Negative for depression, anxiety, suicide ideation, homicidal ideation, and hallucinations, Allergy/Immunology: Negative for hives, rash, and allergies, Endocrine: Negative for neck swelling, polydipsia, polyuria, polyphagia, and marked weight changes, Hematologic/Lymphatic: Negative for swollen nodes, abnormal bleeding, and unusual bruising. 07:35 MS/extremity: Positive for swelling, tenderness, warmth, of the lateral aspect of right calf, right calf and medial aspect of right calf. 07:35 Skin: Positive for cellulitis, swelling. Exam: 07:35 Constitutional: This is a well developed, well nourished patient who is awake, alert, kdr and in no acute distress. 07:35 Musculoskeletal/extremity: Extremities: grossly normal except: noted in the lateral aspect of right calf, right calf and medial aspect of right calf: erythema, pain, swelling, tenderness, At this time, very minor discomfort to his calf area on his right leg. Vital Signs: 07:27 BP 146 / 81; Pulse 71; Resp 18; Temp 97.6; Pulse Ox 99% ; Pain 5/10; mb8 07:39 BP 130 / 68; Pulse 55; Resp 20; Pulse Ox 96% ; Pain 5/10; mb8 08:23 BP 114 / 66; Pulse 62; Resp 18; Pulse Ox 100% ; Pain 4/10; mb8 09:33 BP 118 / 71; Pulse 64; Resp 20; Temp 98; Pulse Ox 99% ; Pain 4/10; mb8 MDM: 07:35 Data reviewed: vital signs, nurses notes, lab test result(s), radiologic studies. kdr Counseling: I had a detailed discussion with the patient and/or guardian regarding: the historical points, exam findings, and any diagnostic results supporting the discharge/admit diagnosis, lab results, radiology results, the need for outpatient follow up. 07:40 Patient medically screened. kdr 06/22 07:11 Order name: CBC with Diff; Complete Time: 07:43 kdr 06/22 07:11 Order name: Comprehensive Metabolic Panel; Complete Time: 08:25 kdr 06/22 07:13 Order name: US Extremity Venous Unilateral Ltd; Complete Time: 09:34 kdr 06/22 07:21 Order name: Urine Dipstick-Ancillary; Complete Time: 07:43 EDMS Administered Medications: 07:52 Drug: Cipro (ciprofloxacin) 500 mg Route: PO; mb8 08:24 Follow up: Response: No adverse reaction mb8 Disposition Summary: 06/22/22 07:40 Discharge Ordered Location: Home kdr Problem: an acute exacerbation kdr Symptoms: have improved kdr Condition: Stable kdr Diagnosis - Cellulitis of right lower limb kdr Followup: kdr - With: Private Physician - When: 2 - 3 days - Reason: If symptoms return, Further diagnostic work-up, Recheck today's complaints, Continuance of care, Re-evaluation by your physician Discharge Instructions: - Discharge Summary Sheet kdr - Cellulitis, Adult, [id number] kdr Forms: - Medication Reconciliation Form kdr - Thank You Letter kdr - Antibiotic Education kdr Prescriptions: - Cipro 250 mg Oral Tablet - take 1 tablet by ORAL route every 12 hours for 10 days; 20 tablet; Refills: 0, kdr Product Selection Permitted Signatures: Dispatcher [employer] EDJin Drake MD MD kdr Florin Lucas RN RN mb8
--- NOTE | 2022-06-22 07:40 | ER ---
Nurse's Notes [facility] Name: Donato Anderson Age: 27 yrs Sex: Male : 1995 Arrival Date: 06/22/2022 Time: 07:08 Bed 17 Private MD: Diagnosis: Cellulitis of right lower limb Presentation: 06/22 07:27 Chief complaint: Patient states: he has redness and warmth to right lower leg. mb8 Coronavirus screen: Vaccine status: Patient reports receiving the 2nd dose of the covid vaccine. Ebola Screen: Patient negative for fever greater than or equal to 101.5 degrees Fahrenheit, and additional compatible Ebola Virus Disease symptoms Patient denies exposure to infectious person. Patient denies travel to an Ebola-affected area in the 21 days before illness onset. No symptoms or risks identified at this time. Initial Sepsis Screen: Does the patient meet any 2 criteria? No. Patient's initial sepsis screen is negative. Does the patient have a suspected source of infection? Yes: Skin breakdown/wound. Risk Assessment: Do you want to hurt yourself or someone else? Patient reports no desire to harm self or others. Onset of symptoms is unknown. 07:27 Method Of Arrival: Ambulatory mb8 07:27 Acuity: NEFTALY 3 mb8 Triage Assessment: 07:28 General: Appears in no apparent distress. comfortable, Behavior is calm, cooperative, mb8 appropriate for age. Pain: Complains of pain in right leg Pain does not radiate. Pain currently is 5 out of 10 on a pain scale. Quality of pain is described as burning. Historical: - Allergies: 07:28 PENICILLINS; mb8 07:28 unknown antibiotics; mb8 - PMHx: 07:28 Asthma; Obesity; Sleep Apnea; mb8 - Immunization history:: Vaccine Information Sheet provided. - Social history:: Smoking status: Patient denies any tobacco usage or history of. Screenin:29 Abuse screen: Denies threats or abuse. Denies injuries from another. Nutritional mb8 screening: No deficits noted. Tuberculosis screening: No symptoms or risk factors identified. Fall Risk None identified. Assessment: 07:29 Derm: Skin is red, Skin temperature is hot right lower leg. mb8 08:24 Reassessment: No changes from previously documented assessment. Patient and/or family mb8 updated on plan of care and expected duration. Pain level reassessed. Patient is alert, oriented x 3, equal unlabored respirations, skin warm/dry/pink. 09:14 Reassessment: No changes from previously documented assessment. Patient and/or family mb8 updated on plan of care and expected duration. Pain level reassessed. Patient is alert, oriented x 3, equal unlabored respirations, skin warm/dry/pink. 09:34 Reassessment: No changes from previously documented assessment. Patient and/or family mb8 updated on plan of care and expected duration. Pain level reassessed. Patient is alert, oriented x 3, equal unlabored respirations, skin warm/dry/pink. Updated patient on results. . Vital Signs: 07:27 BP 146 / 81; Pulse 71; Resp 18; Temp 97.6; Pulse Ox 99% ; Pain 5/10; mb8 07:39 BP 130 / 68; Pulse 55; Resp 20; Pulse Ox 96% ; Pain 5/10; mb8 08:23 BP 114 / 66; Pulse 62; Resp 18; Pulse Ox 100% ; Pain 4/10; mb8 09:33 BP 118 / 71; Pulse 64; Resp 20; Temp 98; Pulse Ox 99% ; Pain 4/10; mb8 ED Course: 07:08 Patient arrived in ED. as 07:10 Jin Heart MD is Attending Physician. kdr 07:13 Florin Lucas, ANGEL is Primary Nurse. mb8 07:28 Triage completed. mb8 07:29 Arm band placed on. mb8 07:29 Patient has correct armband on for positive identification. Placed in gown. Bed in low mb8 position. Call light in reach. Side rails up X2. 07:30 No provider procedures requiring assistance completed. mb8 07:40 Comprehensive Metabolic Panel Sent. mb8 07:40 CBC with Diff Sent. mb8 07:40 Blood Culture Adult (2) Sent. mb8 08:31 Ultrasound in room with patient doing their exam at this time. mb8 08:40 US Extremity Venous Unilateral Ltd In Process Unspecified. EDMS 09:14 Awaiting radiology results. mb8 09:34 Awaiting re-evaluation by ER provider. mb8 09:41 IV discontinued, intact, bleeding controlled, No redness/swelling at site. Pressure mb8 dressing applied. Administered Medications: 07:52 Drug: Cipro (ciprofloxacin) 500 mg Route: PO; mb8 08:24 Follow up: Response: No adverse reaction mb8 Medication: 07:29 VIS not applicable for this client. mb8 Outcome: 07:40 Discharge ordered by . kdr 09:41 Discharged to home ambulatory. mb8 09:41 Condition: stable 09:41 Discharge instructions given to patient, Instructed on discharge instructions, follow up and referral plans. medication usage, Demonstrated understanding of instructions, follow-up care, medications, Prescriptions given X 1. 09:42 Patient left the ED. mb8 Signatures: Dispatcher [employer] EDMS Jin Heart MD MD kdr Martinez, Amelia as Bates, Michael RN RN mb8
[2022-06-22 07:42] LABS: Hematocrit 38.7 % (39.6-49.0); Lymphocytes % 22.4 % (15.3-44.8); MCV 91.2 fL (80-100); MPV 7.6 fL (7.6-11.3); RBC Red Blood Cell Count 4.24 M/uL (4.33-5.43)
[2022-06-22] MEDS ORDERED: CIPROFLOXACIN HCL 500 MG TAB ONE (07:57)
[2022-06-22 08:06] LABS: Albumin 2.8 g/dL (3.4-5.0); Bilirubin Total 0.7 mg/dL (0.2-1.0); Potassium 3.4 mmol/L (3.5-5.1); Protein, Total 7.5 g/dL (6.4-8.2)
--- NOTE | 2022-06-22 09:26 | RAD REPORT ---
EXAM DESCRIPTION: USExtremity Venous Uni Ltd06/22/2022 8:39 am CLINICAL HISTORY: Right leg pain and swelling. COMPARISON: 2020 FINDINGS: Right common femoral, superficial femoral, popliteal and right posterior tibial veins are compressible and demonstrate augmentation. Doppler demonstrates good flow. Grayscale, color and spectral analysis performed on all vessels IMPRESSION: No evidence of deep venous thrombosis involving the right lower extremity.
[2022-06-22 09:57] VITALS: BP 118/71; TEMP 98; O2SAT 99
== END 2022-06-22 09:42 | disposition home or self-care (01) ==
LOC: ER 07:05
DX: L03.115 Cellulitis of right lower limb (principal); Z88.0 Allergy status to penicillin
CPT/HCPCS: 36415; 80053; 81003; 85025; 93971; 99284

== ENCOUNTER 2023-03-29 20:41 | Emergency (ER) | payer OTHER ==
--- OUTSIDE RECORDS SUMMARY | 2023-03-29 20:46 | XMS REPORT | Continuity of Care Document ---
:1995 Author Organization [facility] t Address 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, - [facility] recurrent, [facility] [id number] Depression Problem Com mon , Spirit unspecifie - [facility] d depression [facility] Mixed Depression Problem Commo n anxiety with Spirit and anxiety - [facility] depressive [facility] Chronic Chronic Problem Common fatigue fatigue Spirit syndrome - [facility] [id number] Daytime Problem Comm on 00 somnolence [facility] [id number] Acute non Problem Com mon intractabl Spirit e - [facility] tension-ty [facility] Obstructiv Obstructiv Problem C ommon e sleep e sleep [facility] apnea apnea - [facility] [id number] Morning Problem Commo n headache Spirit [facility] Morbid Morbid Problem Common obesity obesity Spirit [facility] [id number] BMI 70 and Problem Co mmon over, Spirit adult [facility] [id number] Essential Problem Comm on hypertensi [facility] on [facility] [id number] Adult Problem Common general [facility] medical [facility] exam [facility] [id number] Severe Problem Common major [facility] depression [facility] [id number] Ulcer of Problem Comm on right [facility] extremity, [facility] Medical of skin Center [id number] Blood Problem Common tests for [facility] routine [facility] general [facility] examinatio Medica l n Center Seasonal Allergic Problem Commo n allergic rhinitis, Spiri t rhinitis seasonal [facility] [id number] Snoring Problem Common [facility] Vitamin D Vitamin D Problem Com mon deficiency deficiency Sp sana [facility] [id number] Dry eyes Problem Comm on [facility] [id number] Paresthesi Problem Com mon a of skin [facility] [id number] Venous Problem Common stasis [facility] dermatitis - [facility] of right [facility] [id number] Peripheral Problem Co mmon vascular [facility] disease [facility] Allergies, Adverse Reactions, Alerts This patient has no known allergies or adverse reactions. Social History Social Habit Start Date Stop Date Quantity Comments Source History of Tobacco Use Co mmon [facility] Sex Assigned At Com mon [facility] Smoking Status Start Date Stop Date Source Never Smoker [facility] Medications Ordered Filled Start Stop Current Ordering Indication Dosage Frequency Signature Comments Components Source Medication Medication Date Date Medication? Clinician (SIG) Name Name Azelastine Azelastine 2021-10 No 1{drop_ BID Azelastine HCl 0.05 % HCl 0.05 % 0-28 into_af HCl 0.05 % 00:00: fected_ 00 eye_as_ needed} Azelastine Azelastine 2021-10 No 1{drop_ BID Azelastine HCl 0.05 % HCl 0.05 % 0-28 into_af HCl 0.05 % 00:00: fected_ 00 eye_as_ needed} Azelastine Azelastine 2021-10 No 1{drop_ BID Azelastine HCl 0.05 % HCl 0.05 % into_af HCl 0.05 % 00:00: fected_ 00 eye_as_ needed} Bactrim DS Bactrim DS 2021-10- No 1{table BID Bactrim DS 800-160 MG 800-160 MG 0-28 11-16 t} 800-160 MG 00:00: 00:00 00 :00 Bactrim DS Bactrim DS 2021-10- No 1{table BID Bactrim DS 800-160 MG 800-160 MG 028 11-16 t} 800-160 MG 00:00: 00:00 00 :00 Mupirocin 2 Mupirocin 2 2021- No 1{appli BID Mupirocin % % 9- 10-05 cation_ 2 % 00:00: 00:00 to_affe 00 :00 cted_ar ea} Mupirocin 2 Mupirocin 2 2021- No 1{appli BID Mupirocin % % 9- 10-05 cation_ 2 % 00:00: 00:00 to_affe 00 :00 cted_ar ea} Mupirocin 2 Mupirocin 2 2- No 1{appli BID Mupirocin % % 9- 10-05 cation_ 2 % 00:00: 00:00 to_affe 00 :00 cted_ar ea} Mupirocin 2 Mupirocin 2 2- No 1{appli BID Mupirocin % % 9- 10-05 cation_ 2 % 00:00: 00:00 to_affe 00 :00 cted_ar ea} Mupirocin 2 Mupirocin 2 2- No 1{appli BID Mupirocin % % 9-21 10-05 cation_ 2 % 00:00: 00:00 to_affe 00 :00 cted_ar ea} Bactrim DS Bactrim DS 2021- No 1{table BID Bactrim DS 800-160 MG 800-160 MG 9- 10- t} 800-160 MG 00:00: 00:00 00 :00 Bactrim DS Bactrim DS 2- No 1{table BID Bactrim DS 800-160 MG 800-160 MG 07-09 t} 800-160 MG 00:00: 00:00 00 :00 Bactrim DS Bactrim DS 2- No 1{table BID Bactrim DS 800-160 MG 800-160 MG 07-09 t} 800-160 MG 00:00: 00:00 00 :00 Bactrim DS Bactrim DS 2- No 1{table BID Bactrim DS 800-160 MG 800-160 MG 07-09 t} 800-160 MG 00:00: 00:00 00 :00 Fluconazole Fluconazole 2021- No 1{table Fluconazol 150 MG 150 MG 07-09 t} e 150 MG 00:00: 00:00 00 :00 Fluconazole Fluconazole 2021- No 1{table Fluconazol 150 MG 150 MG 07-09 t} e 150 MG 00:00: 00:00 00 :00 Keflex 500 Keflex 500 2020-0 No 1{capsu BID Keflex 500 MG MG 9-25 le} MG 00:00: 00 Keflex 500 Keflex 500 2020-0 No 1{capsu BID Keflex 500 MG MG 9-25 le} MG 00:00: 00 Keflex 500 Keflex 500 2020-0 No 1{capsu BID Keflex 500 MG MG 9-25 le} MG 00:00: 00 Keflex 500 Keflex 500 2020-0 No 1{capsu BID Keflex 500 MG MG 9-25 le} MG 00:00: 00 Keflex 500 Keflex 500 2020-0 No 1{capsu BID Keflex 500 MG MG 9-25 le} MG 00:00: 00 Keflex 500 Keflex 500 2020-0 No 1{capsu BID Keflex 500 MG MG 9-25 le} MG 00:00: 00 Keflex 500 Keflex 500 2020-0 No 1{capsu BID Keflex 500 MG MG 9-25 le} MG 00:00: 00 Keflex 500 Keflex 500 2020-0 No 1{capsu BID Keflex 500 MG MG 9-25 le} MG 00:00: 00 Keflex 500 Keflex 500 2020-0 No 1{capsu BID Keflex 500 MG MG 9-25 le} MG 00:00: 00 Keflex 500 Keflex 500 2020-0 No 1{capsu BID Keflex 500 MG MG 9-25 le} MG 00:00: 00 Keflex 500 Keflex 500 2020-0 No 1{capsu BID Keflex 500 MG MG 9-25 le} MG 00:00: 00 Keflex 500 Keflex 500 2020-0 No 1{capsu BID Keflex 500 MG MG 9-25 le} MG 00:00: 00 Keflex 500 Keflex 500 2020-0 No 1{capsu BID Keflex 500 MG MG 9-25 le} MG 00:00: 00 Keflex 500 Keflex 500 2020-0 No 1{capsu BID Keflex 500 MG MG 9-25 le} MG 00:00: 00 Keflex 500 Keflex 500 2019-0 No 1{capsu BID Keflex 500 MG MG 9-25 le} MG 00:00: 00 Keflex 500 Keflex 500 2020-0 No 1{capsu BID Keflex 500 MG MG 9-25 le} MG 00:00: 00 Keflex 500 Keflex 500 2020-0 No 1{capsu BID Keflex 500 MG MG 9-25 le} MG 00:00: 00 Santyl Santyl 2019-0 2020- No Na Turner 1 Commo n 06-28 applicatio Spirit 00:00: 00:00 n mukul - [facility] 00 :00 thickness [facility] Mupirocin Mupirocin 2019-0 2020- No Na Turner 1 Common 06-28 applicatio Spirit 00:00: 00:00 n to - [facility]I 00 :00 affected [facility] Keflex Keflex 2020-0 2020- No Na Turner 1 capsule Common 06-28 Spirit 00:00: 00:00 - [facility]I 00 :00 [facility] Wellbutrin Wellbutrin 2018-0 Yes Na Turner 1 tablet Common SR SR 7-18 in am [facility] 00:00: - [facility]I 00 [facility] Ergocalcife Ergocalcife 2018-0 Yes Na Turner 1 capsule Common rol rol 2-28 Spirit 00:00: - [facility]I 00 [facility] Ventolin Ventolin 2017- Yes Na Turner 2 puffs as Common HFA HFA 2-13 needed Spirit 00:00: - [facility]I 00 [facility] Ventolin Ventolin No 2{puffs QID Ventolin HFA 108 (90 HFA 108 (90 2-13 _as_nee HFA 108 Base) Base) 00:00: ded} (90 Base) MCG/ACT MCG/ACT 00 MCG/ACT Ventolin Ventolin No 2{puffs QID Ventolin HFA 108 (90 HFA 108 (90 2-13 _as_nee HFA 108 Base) Base) 00:00: ded} (90 Base) MCG/ACT MCG/ACT 00 MCG/ACT Ventolin Ventolin No 2{puffs QID Ventolin HFA 108 (90 HFA 108 (90 2-13 _as_nee HFA 108 Base) Base) 00:00: ded} (90 Base) MCG/ACT MCG/ACT 00 MCG/ACT Ventolin Ventolin No 2{puffs QID Ventolin HFA 108 (90 HFA 108 (90 2-13 _as_nee HFA 108 Base) Base) 00:00: ded} (90 Base) MCG/ACT MCG/ACT 00 MCG/ACT Ventolin Ventolin No 2{puffs QID Ventolin HFA 108 (90 HFA 108 (90 2-13 _as_nee HFA 108 Base) Base) 00:00: ded} (90 Base) MCG/ACT MCG/ACT 00 MCG/ACT Ventolin Ventolin No 2{puffs QID Ventolin HFA 108 (90 HFA 108 (90 2-13 _as_nee HFA 108 Base) Base) 00:00: ded} (90 Base) MCG/ACT MCG/ACT 00 MCG/ACT Ventolin Ventolin No 2{puffs QID Ventolin HFA 108 (90 HFA 108 (90 2-13 _as_nee HFA 108 Base) Base) 00:00: ded} (90 Base) MCG/ACT MCG/ACT 00 MCG/ACT Celexa Celexa Yes Na Turner 1 tablet Comm on at bedtime [facility] Zyrtec Zyrtec Yes Na Turner 1 tablet Comm on Allergy Allergy [facility] Multivitami Multivitami Yes Na Turner not Common n Adult n Adult defined [facility] Saxenda Saxenda Yes Na Turner not Common defined [facility] Lisinopril- Lisinopril- Yes Na Turner 1 tablet Common Hydrochloro Hydrochloro S pirit thiazide thiazide - [facility] Ranitidine Ranitidine Yes Na Turner 1 capsule Common HCl HCl at bedtime Spirit [facility] Ranitidine Ranitidine No 1{capsu BID Ranitidine HCl 150 MG HCl 150 MG le_at_b HCl 150 MG edtime} Lisinopril- Lisinopril- No 1{table QD Lisinopril hydroCHLORO hydroCHLORO t} -hydroCHLO thiazide thiazide ROthiazide 20-25 MG 20-25 MG 20-25 MG Santyl 250 Santyl 250 No Santyl 250 UNIT/GM UNIT/GM UNIT/GM Mupirocin 2 Mupirocin 2 No 1{appli BID Mupirocin % % cation_ 2 % to_affe cted_ar ea} CeleXA 20 CeleXA 20 No 1{table QD CeleXA 20 MG MG t_at_be MG dtime} Saxenda 18 Saxenda 18 No Saxenda 18 MG/3ML MG/3ML MG/3ML Multivitami Multivitami No Multivitam n Adult - n Adult - in Adult - Ergocalcife Ergocalcife No 1{capsu Ergocalcif rol 94984 rol 02774 le} fuad [id number] UNIT UNIT UNIT ZyrTEC ZyrTEC No 1{table QD ZyrTEC Allergy 10 Allergy 10 t} Allergy 10 MG MG MG Ranitidine Ranitidine No 1{capsu BID Ranitidine HCl 150 MG HCl 150 MG le_at_b HCl 150 MG edtime} Clindamycin Clindamycin No Clindamyci HCl 300mg HCl 300mg n HCl 300mg Mupirocin 2 Mupirocin 2 No 1{appli BID Mupirocin % % cation_ 2 % to_affe cted_ar ea} Multivitami Multivitami No Multivitam n Adult - n Adult - in Adult - Lisinopril- Lisinopril- No 1{table QD Lisinopril hydroCHLORO hydroCHLORO t} -hydroCHLO thiazide thiazide ROthiazide 20-25 MG 20-25 MG 20-25 MG CeleXA 20 CeleXA 20 No 1{table QD CeleXA 20 MG MG t_at_be MG dtime} Saxenda 18 Saxenda 18 No Saxenda 18 MG/3ML MG/3ML MG/3ML Wellbutrin Wellbutrin No 1{table QD Wellbutrin SR 150 MG SR 150 MG t_in_th SR 150 MG e_morni ng} Santyl 250 Santyl 250 No Santyl 250 UNIT/GM UNIT/GM UNIT/GM Ergocalcife Ergocalcife No 1{capsu Ergocalcif rol 96844 rol 55100 le} fuad [id number] UNIT UNIT UNIT ZyrTEC ZyrTEC No 1{table QD ZyrTEC Allergy 10 Allergy 10 t} Allergy 10 MG MG MG Ranitidine Ranitidine No 1{capsu BID Ranitidine HCl 150 MG HCl 150 MG le_at_b HCl 150 MG edtime} Clindamycin Clindamycin No Clindamyci HCl 300mg HCl 300mg n HCl 300mg Mupirocin 2 Mupirocin 2 No 1{appli BID Mupirocin % % cation_ 2 % to_affe cted_ar ea} Multivitami Multivitami No Multivitam n Adult - n Adult - in Adult - Lisinopril- Lisinopril- No 1{table QD Lisinopril hydroCHLORO hydroCHLORO t} -hydroCHLO thiazide thiazide ROthiazide 20-25 MG 20-25 MG 20-25 MG CeleXA 20 CeleXA 20 No 1{table QD CeleXA 20 MG MG t_at_be MG dtime} Saxenda 18 Saxenda 18 No Saxenda 18 MG/3ML MG/3ML MG/3ML Wellbutrin Wellbutrin No 1{table QD Wellbutrin SR 150 MG SR 150 MG t_in_th SR 150 MG e_morni ng} Santyl 250 Santyl 250 No Santyl 250 UNIT/GM UNIT/GM UNIT/GM Wellbutrin Wellbutrin No 1{table QD Wellbutrin SR 150 MG SR 150 MG t_in_th SR 150 MG e_morni ng} Santyl 250 Santyl 250 No Santyl 250 UNIT/GM UNIT/GM UNIT/GM Lisinopril- Lisinopril- No 1{table QD Lisinopril hydroCHLORO hydroCHLORO t} -hydroCHLO thiazide thiazide ROthiazide 20-25 MG 20-25 MG 20-25 MG Ergocalcife Ergocalcife No 1{capsu Ergocalcif rol 11928 rol 33536 le} fuad [id number] UNIT UNIT UNIT Clindamycin Clindamycin No Clindamyci HCl 300mg HCl 300mg n HCl 300mg Saxenda 18 Saxenda 18 No Saxenda 18 MG/3ML MG/3ML MG/3ML Multivitami Multivitami No Multivitam n Adult - n Adult - in Adult - CeleXA 20 CeleXA 20 No 1{table QD CeleXA 20 MG MG t_at_be MG dtime} Ranitidine Ranitidine No 1{capsu BID Ranitidine HCl 150 MG HCl 150 MG le_at_b HCl 150 MG edtime} Mupirocin 2 Mupirocin 2 No 1{appli BID Mupirocin % % cation_ 2 % to_affe cted_ar ea} ZyrTEC ZyrTEC No 1{table QD ZyrTEC Allergy 10 Allergy 10 t} Allergy 10 MG MG MG Lisinopril- Lisinopril- No 1{table QD Lisinopril hydroCHLORO hydroCHLORO t} -hydroCHLO thiazide thiazide ROthiazide 20-25 MG 20-25 MG 20-25 MG CeleXA 20 CeleXA 20 No 1{table QD CeleXA 20 MG MG t_at_be MG dtime} Saxenda 18 Saxenda 18 No Saxenda 18 MG/3ML MG/3ML MG/3ML Clindamycin Clindamycin No Clindamyci HCl 300mg HCl 300mg n HCl 300mg Santyl 250 Santyl 250 No Santyl 250 UNIT/GM UNIT/GM UNIT/GM Ergocalcife Ergocalcife No 1{capsu Ergocalcif rol 59792 rol 57207 le} fuad [id number] UNIT UNIT UNIT ZyrTEC ZyrTEC No 1{table QD ZyrTEC Allergy 10 Allergy 10 t} Allergy 10 MG MG MG Ranitidine Ranitidine No 1{capsu BID Ranitidine HCl 150 MG HCl 150 MG le_at_b HCl 150 MG edtime} Mupirocin 2 Mupirocin 2 No 1{appli BID Mupirocin % % cation_ 2 % to_affe cted_ar ea} Multivitami Multivitami No Multivitam n Adult - n Adult - in Adult - Wellbutrin Wellbutrin No 1{table QD Wellbutrin SR 150 MG SR 150 MG t_in_th SR 150 MG e_morni ng} Lisinopril- Lisinopril- No 1{table QD Lisinopril hydroCHLORO hydroCHLORO t} -hydroCHLO thiazide thiazide ROthiazide 20-25 MG 20-25 MG 20-25 MG CeleXA 20 CeleXA 20 No 1{table QD CeleXA 20 MG MG t_at_be MG dtime} Saxenda 18 Saxenda 18 No Saxenda 18 MG/3ML MG/3ML MG/3ML Clindamycin Clindamycin No Clindamyci HCl 300mg HCl 300mg n HCl 300mg Santyl 250 Santyl 250 No Santyl 250 UNIT/GM UNIT/GM UNIT/GM Ergocalcife Ergocalcife No 1{capsu Ergocalcif rol 38036 rol 35694 le} fuad [id number] UNIT UNIT UNIT ZyrTEC ZyrTEC No 1{table QD ZyrTEC Allergy 10 Allergy 10 t} Allergy 10 MG MG MG Ranitidine Ranitidine No 1{capsu BID Ranitidine HCl 150 MG HCl 150 MG le_at_b HCl 150 MG edtime} Mupirocin 2 Mupirocin 2 No 1{appli BID Mupirocin % % cation_ 2 % to_affe cted_ar ea} Multivitami Multivitami No Multivitam n Adult - n Adult - in Adult - Wellbutrin Wellbutrin No 1{table QD Wellbutrin SR 150 MG SR 150 MG t_in_th SR 150 MG e_morni ng} Santyl 250 Santyl 250 No Santyl 250 UNIT/GM UNIT/GM UNIT/GM Ranitidine Ranitidine No 1{capsu BID Ranitidine HCl 150 MG HCl 150 MG le_at_b HCl 150 MG edtime} Saxenda 18 Saxenda 18 No Saxenda 18 MG/3ML MG/3ML MG/3ML CeleXA 20 CeleXA 20 No 1{table QD CeleXA 20 MG MG t_at_be MG dtime} Multivitami Multivitami No Multivitam n Adult - n Adult - in Adult - Lisinopril- Lisinopril- No 1{table QD Lisinopril hydroCHLORO hydroCHLORO t} -hydroCHLO thiazide thiazide ROthiazide 20-25 MG 20-25 MG 20-25 MG ZyrTEC ZyrTEC No 1{table QD ZyrTEC Allergy 10 Allergy 10 t} Allergy 10 MG MG MG Mupirocin 2 Mupirocin 2 No 1{appli BID Mupirocin % % cation_ 2 % to_affe cted_ar ea} Clindamycin Clindamycin No Clindamyci HCl 300mg HCl 300mg n HCl 300mg Ergocalcife Ergocalcife No 1{capsu Ergocalcif rol 45922 rol 19084 le} fuad [id number] UNIT UNIT UNIT Wellbutrin Wellbutrin No 1{table QD Wellbutrin SR 150 MG SR 150 MG t_in_th SR 150 MG e_morni ng} Clindamycin Clindamycin No Clindamyci HCl 300mg HCl 300mg n HCl 300mg Saxenda 18 Saxenda 18 No Saxenda 18 MG/3ML MG/3ML MG/3ML CeleXA 20 CeleXA 20 No 1{table QD CeleXA 20 MG MG t_at_be MG dtime} Lisinopril- Lisinopril- No 1{table QD Lisinopril hydroCHLORO hydroCHLORO t} -hydroCHLO thiazide thiazide ROthiazide 20-25 MG 20-25 MG 20-25 MG Santyl 250 Santyl 250 No Santyl 250 UNIT/GM UNIT/GM UNIT/GM Ranitidine Ranitidine No 1{capsu BID Ranitidine HCl 150 MG HCl 150 MG le_at_b HCl 150 MG edtime} Mupirocin 2 Mupirocin 2 No 1{appli BID Mupirocin % % cation_ 2 % to_affe cted_ar ea} Multivitami Multivitami No Multivitam n Adult - n Adult - in Adult - Wellbutrin Wellbutrin No 1{table QD Wellbutrin SR 150 MG SR 150 MG t_in_th SR 150 MG e_morni ng} ZyrTEC ZyrTEC No 1{table QD ZyrTEC Allergy 10 Allergy 10 t} Allergy 10 MG MG MG buPROPion buPROPion No buPROPion HCl ER (SR) HCl ER (SR) HCl ER 150 MG 150 MG (SR) 150 MG Citalopram Citalopram No Citalopram Hydrobromid Hydrobromid Hydrobromi e 20 MG e 20 MG de 20 MG CeleXA 20 CeleXA 20 No 1{table QD CeleXA 20 MG MG t_at_be MG dtime} Mupirocin 2 Mupirocin 2 No 1{appli BID Mupirocin % % cation_ 2 % to_affe cted_ar ea} Multivitami Multivitami No Multivitam n Adult - n Adult - in Adult - Lisinopril- Lisinopril- No Lisinopril hydroCHLORO hydroCHLORO -hydroCHLO thiazide thiazide ROthiazide 20-25 MG 20-25 MG 20-25 MG Clindamycin Clindamycin No Clindamyci HCl 300mg HCl 300mg n HCl 300mg Saxenda 18 Saxenda 18 No Saxenda 18 MG/3ML MG/3ML MG/3ML Santyl 250 Santyl 250 No Santyl 250 UNIT/GM UNIT/GM UNIT/GM Ranitidine Ranitidine No 1{capsu BID Ranitidine HCl 150 MG HCl 150 MG le_at_b HCl 150 MG edtime} ZyrTEC ZyrTEC No 1{table QD ZyrTEC Allergy 10 Allergy 10 t} Allergy 10 MG MG MG Ventolin Ventolin No 2{puffs QID Ventolin HFA 108 (90 HFA 108 (90 _as_nee HFA 108 Base) Base) ded} (90 Base) MCG/ACT MCG/ACT MCG/ACT Wellbutrin Wellbutrin No 1{table QD Wellbutrin SR 150 MG SR 150 MG t_in_th SR 150 MG e_morni ng} Lisinopril- Lisinopril- No 1{table QD Lisinopril hydroCHLORO hydroCHLORO t} -hydroCHLO thiazide thiazide ROthiazide 20-25 MG 20-25 MG 20-25 MG buPROPion buPROPion No buPROPion HCl ER (SR) HCl ER (SR) HCl ER 150 MG 150 MG (SR) 150 MG Citalopram Citalopram No Citalopram Hydrobromid Hydrobromid Hydrobromi e 20 MG e 20 MG de 20 MG CeleXA 20 CeleXA 20 No 1{table QD CeleXA 20 MG MG t_at_be MG dtime} Mupirocin 2 Mupirocin 2 No 1{appli BID Mupirocin % % cation_ 2 % to_affe cted_ar ea} Multivitami Multivitami No Multivitam n Adult - n Adult - in Adult - Lisinopril- Lisinopril- No Lisinopril hydroCHLORO hydroCHLORO -hydroCHLO thiazide thiazide ROthiazide 20-25 MG 20-25 MG 20-25 MG Clindamycin Clindamycin No Clindamyci HCl 300mg HCl 300mg n HCl 300mg Saxenda 18 Saxenda 18 No Saxenda 18 MG/3ML MG/3ML MG/3ML Santyl 250 Santyl 250 No Santyl 250 UNIT/GM UNIT/GM UNIT/GM Ranitidine Ranitidine No 1{capsu BID Ranitidine HCl 150 MG HCl 150 MG le_at_b HCl 150 MG edtime} ZyrTEC ZyrTEC No 1{table QD ZyrTEC Allergy 10 Allergy 10 t} Allergy 10 MG MG MG Ventolin Ventolin No 2{puffs QID Ventolin HFA 108 (90 HFA 108 (90 _as_nee HFA 108 Base) Base) ded} (90 Base) MCG/ACT MCG/ACT MCG/ACT Wellbutrin Wellbutrin No 1{table QD Wellbutrin SR 150 MG SR 150 MG t_in_th SR 150 MG e_morni ng} Lisinopril- Lisinopril- No 1{table QD Lisinopril hydroCHLORO hydroCHLORO t} -hydroCHLO thiazide thiazide ROthiazide 20-25 MG 20-25 MG 20-25 MG Lisinopril- Lisinopril- No Lisinopril hydroCHLORO hydroCHLORO -hydroCHLO thiazide thiazide ROthiazide 20-25 MG 20-25 MG 20-25 MG Multivitami Multivitami No Multivitam n Adult - n Adult - in Adult - buPROPion buPROPion No buPROPion HCl ER (SR) HCl ER (SR) HCl ER 150 MG 150 MG (SR) 150 MG ZyrTEC ZyrTEC No 1{table QD ZyrTEC Allergy 10 Allergy 10 t} Allergy 10 MG MG MG Wellbutrin Wellbutrin No 1{table QD Wellbutrin SR 150 MG SR 150 MG t_in_th SR 150 MG e_morni ng} Citalopram Citalopram No Citalopram Hydrobromid Hydrobromid Hydrobromi e 20 MG e 20 MG de 20 MG Clindamycin Clindamycin No Clindamyci HCl 300mg HCl 300mg n HCl 300mg Ventolin Ventolin No 2{puffs QID Ventolin HFA 108 (90 HFA 108 (90 _as_nee HFA 108 Base) Base) ded} (90 Base) MCG/ACT MCG/ACT MCG/ACT Ranitidine Ranitidine No 1{capsu BID Ranitidine HCl 150 MG HCl 150 MG le_at_b HCl 150 MG edtime} Lisinopril- Lisinopril- No 1{table QD Lisinopril hydroCHLORO hydroCHLORO t} -hydroCHLO thiazide thiazide ROthiazide 20-25 MG 20-25 MG 20-25 MG Santyl 250 Santyl 250 No Santyl 250 UNIT/GM UNIT/GM UNIT/GM Mupirocin 2 Mupirocin 2 No 1{appli BID Mupirocin % % cation_ 2 % to_affe cted_ar ea} CeleXA 20 CeleXA 20 No 1{table QD CeleXA 20 MG MG t_at_be MG dtime} Saxenda 18 Saxenda 18 No Saxenda 18 MG/3ML MG/3ML MG/3ML Wellbutrin Wellbutrin No 1{table QD Wellbutrin SR 150 MG SR 150 MG t_in_th SR 150 MG e_morni ng} Lisinopril- Lisinopril- No Lisinopril hydroCHLORO hydroCHLORO -hydroCHLO thiazide thiazide ROthiazide 20-25 MG 20-25 MG 20-25 MG Citalopram Citalopram No Citalopram Hydrobromid Hydrobromid Hydrobromi e 20 MG e 20 MG de 20 MG ZyrTEC ZyrTEC No 1{table QD ZyrTEC Allergy 10 Allergy 10 t} Allergy 10 MG MG MG buPROPion buPROPion No buPROPion HCl ER (SR) HCl ER (SR) HCl ER 150 MG 150 MG (SR) 150 MG Clindamycin Clindamycin No Clindamyci HCl 300mg HCl 300mg n HCl 300mg Ventolin Ventolin No 2{puffs QID Ventolin HFA 108 (90 HFA 108 (90 _as_nee HFA 108 Base) Base) ded} (90 Base) MCG/ACT MCG/ACT MCG/ACT Ranitidine Ranitidine No 1{capsu BID Ranitidine HCl 150 MG HCl 150 MG le_at_b HCl 150 MG edtime} Lisinopril- Lisinopril- No 1{table QD Lisinopril hydroCHLORO hydroCHLORO t} -hydroCHLO thiazide thiazide ROthiazide 20-25 MG 20-25 MG 20-25 MG Santyl 250 Santyl 250 No Santyl 250 UNIT/GM UNIT/GM UNIT/GM Mupirocin 2 Mupirocin 2 No 1{appli BID Mupirocin % % cation_ 2 % to_affe cted_ar ea} CeleXA 20 CeleXA 20 No 1{table QD CeleXA 20 MG MG t_at_be MG dtime} Saxenda 18 Saxenda 18 No Saxenda 18 MG/3ML MG/3ML MG/3ML Multivitami Multivitami No Multivitam n Adult - n Adult - in Adult - buPROPion buPROPion No buPROPion HCl ER (SR) HCl ER (SR) HCl ER 150 MG 150 MG (SR) 150 MG Wellbutrin Wellbutrin No 1{table QD Wellbutrin SR 150 MG SR 150 MG t_in_th SR 150 MG e_morni ng} ZyrTEC ZyrTEC No 1{table QD ZyrTEC Allergy 10 Allergy 10 t} Allergy 10 MG MG MG Citalopram Citalopram No Citalopram Hydrobromid Hydrobromid Hydrobromi e 20 MG e 20 MG de 20 MG Clindamycin Clindamycin No Clindamyci HCl 300mg HCl 300mg n HCl 300mg Ventolin Ventolin No 2{puffs QID Ventolin HFA 108 (90 HFA 108 (90 _as_nee HFA 108 Base) Base) ded} (90 Base) MCG/ACT MCG/ACT MCG/ACT Ranitidine Ranitidine No 1{capsu BID Ranitidine HCl 150 MG HCl 150 MG le_at_b HCl 150 MG edtime} Lisinopril- Lisinopril- No 1{table QD Lisinopril hydroCHLORO hydroCHLORO t} -hydroCHLO thiazide thiazide ROthiazide 20-25 MG 20-25 MG 20-25 MG Santyl 250 Santyl 250 No Santyl 250 UNIT/GM UNIT/GM UNIT/GM Multivitami Multivitami No Multivitam n Adult - n Adult - in Adult - Mupirocin 2 Mupirocin 2 No 1{appli BID Mupirocin % % cation_ 2 % to_affe cted_ar ea} CeleXA 20 CeleXA 20 No 1{table QD CeleXA 20 MG MG t_at_be MG dtime} Saxenda 18 Saxenda 18 No Saxenda 18 MG/3ML MG/3ML MG/3ML Lisinopril- Lisinopril- No Lisinopril hydroCHLORO hydroCHLORO -hydroCHLO thiazide thiazide ROthiazide 20-25 MG 20-25 MG 20-25 MG CeleXA 20 CeleXA 20 No 1{table QD CeleXA 20 MG MG t_at_be MG dtime} Wellbutrin Wellbutrin No 1{table QD Wellbutrin SR 150 MG SR 150 MG t_in_th SR 150 MG e_morni ng} Saxenda 18 Saxenda 18 No Saxenda 18 MG/3ML MG/3ML MG/3ML Multivitami Multivitami No Multivitam n Adult - n Adult - in Adult - Vitamin D Vitamin D No Vitamin D (Ergocalcif (Ergocalcif (Ergocalci fuad) 1.25 fuad) 1.25 ferol) MG (75083 MG (89786 1.25 MG UT) UT) (78022 UT) Lisinopril- Lisinopril- No 1{table QD Lisinopril hydroCHLORO hydroCHLORO t} -hydroCHLO thiazide thiazide ROthiazide 20-25 MG 20-25 MG 20-25 MG ZyrTEC ZyrTEC No 1{table QD ZyrTEC Allergy 10 Allergy 10 t} Allergy 10 MG MG MG Clindamycin Clindamycin No Clindamyci HCl 300mg HCl 300mg n HCl 300mg Ventolin Ventolin No 2{puffs QID Ventolin HFA 108 (90 HFA 108 (90 _as_nee HFA 108 Base) Base) ded} (90 Base) MCG/ACT MCG/ACT MCG/ACT Ranitidine Ranitidine No 1{capsu BID Ranitidine HCl 150 MG HCl 150 MG le_at_b HCl 150 MG edtime} Santyl 250 Santyl 250 No Santyl 250 UNIT/GM UNIT/GM UNIT/GM buPROPion buPROPion No buPROPion HCl ER (SR) HCl ER (SR) HCl ER 150 MG 150 MG (SR) 150 MG Mupirocin 2 Mupirocin 2 No 1{appli BID Mupirocin % % cation_ 2 % to_affe cted_ar ea} Citalopram Citalopram No Citalopram Hydrobromid Hydrobromid Hydrobromi e 20 MG e 20 MG de 20 MG CeleXA 20 CeleXA 20 No 1{table QD CeleXA 20 MG MG t_at_be MG dtime} Wellbutrin Wellbutrin No 1{table QD Wellbutrin SR 150 MG SR 150 MG t_in_th SR 150 MG e_morni ng} Saxenda 18 Saxenda 18 No Saxenda 18 MG/3ML MG/3ML MG/3ML Multivitami Multivitami No Multivitam n Adult - n Adult - in Adult - Vitamin D Vitamin D No Vitamin D (Ergocalcif (Ergocalcif (Ergocalci fuad) 1.25 fuad) 1.25 ferol) MG (57417 MG (59033 1.25 MG UT) UT) (22085 UT) Lisinopril- Lisinopril- No 1{table QD Lisinopril hydroCHLORO hydroCHLORO t} -hydroCHLO thiazide thiazide ROthiazide 20-25 MG 20-25 MG 20-25 MG ZyrTEC ZyrTEC No 1{table QD ZyrTEC Allergy 10 Allergy 10 t} Allergy 10 MG MG MG Clindamycin Clindamycin No Clindamyci HCl 300mg HCl 300mg n HCl 300mg Ventolin Ventolin No 2{puffs QID Ventolin HFA 108 (90 HFA 108 (90 _as_nee HFA 108 Base) Base) ded} (90 Base) MCG/ACT MCG/ACT MCG/ACT Ranitidine Ranitidine No 1{capsu BID Ranitidine HCl 150 MG HCl 150 MG le_at_b HCl 150 MG edtime} Santyl 250 Santyl 250 No Santyl 250 UNIT/GM UNIT/GM UNIT/GM buPROPion buPROPion No buPROPion HCl ER (SR) HCl ER (SR) HCl ER 150 MG 150 MG (SR) 150 MG Mupirocin 2 Mupirocin 2 No 1{appli BID Mupirocin % % cation_ 2 % to_affe cted_ar ea} Citalopram Citalopram No Citalopram Hydrobromid Hydrobromid Hydrobromi e 20 MG e 20 MG de 20 MG CeleXA 20 CeleXA 20 No 1{table QD CeleXA 20 MG MG t_at_be MG dtime} Saxenda 18 Saxenda 18 No Saxenda 18 MG/3ML MG/3ML MG/3ML Multivitami Multivitami No Multivitam n Adult - n Adult - in Adult - Lisinopril- Lisinopril- No 1{table QD Lisinopril hydroCHLORO hydroCHLORO t} -hydroCHLO thiazide thiazide ROthiazide 20-25 MG 20-25 MG 20-25 MG Citalopram Citalopram No 1{table QD Citalopram Hydrobromid Hydrobromid t_at_be Hydrobromi e 20 MG e 20 MG dtime} de 20 MG Vitamin D Vitamin D No Vitamin D (Ergocalcif (Ergocalcif (Ergocalci ufad) 1.25 fuad) 1.25 ferol) MG (32415 MG (01750 1.25 MG UT) UT) (20076 UT) Clindamycin Clindamycin No Clindamyci HCl 300mg HCl 300mg n HCl 300mg Ventolin Ventolin No 2{puffs QID Ventolin HFA 108 (90 HFA 108 (90 _as_nee HFA 108 Base) Base) ded} (90 Base) MCG/ACT MCG/ACT MCG/ACT Ranitidine Ranitidine No 1{capsu BID Ranitidine HCl 150 MG HCl 150 MG le_at_b HCl 150 MG edtime} Santyl 250 Santyl 250 No BID Santyl 250 UNIT/GM UNIT/GM UNIT/GM buPROPion buPROPion No buPROPion HCl ER (SR) HCl ER (SR) HCl ER 150 MG 150 MG (SR) 150 MG ZyrTEC ZyrTEC No 1{table QD ZyrTEC Allergy 10 Allergy 10 t} Allergy 10 MG MG MG Mupirocin 2 Mupirocin 2 No 1{appli BID Mupirocin % % cation_ 2 % to_affe cted_ar ea} Wellbutrin Wellbutrin No 1{table QD Wellbutrin SR 150 MG SR 150 MG t_in_th SR 150 MG e_morni ng} Lisinopril- Lisinopril- No Lisinopril hydroCHLORO hydroCHLORO -hydroCHLO thiazide thiazide ROthiazide 20-25 MG 20-25 MG 20-25 MG Multivitami Multivitami No Multivitam n Adult - n Adult - in Adult - buPROPion buPROPion No buPROPion HCl ER (SR) HCl ER (SR) HCl ER 150 MG 150 MG (SR) 150 MG ZyrTEC ZyrTEC No 1{table QD ZyrTEC Allergy 10 Allergy 10 t} Allergy 10 MG MG MG Wellbutrin Wellbutrin No 1{table QD Wellbutrin SR 150 MG SR 150 MG t_in_th SR 150 MG e_morni ng} Citalopram Citalopram No Citalopram Hydrobromid Hydrobromid Hydrobromi e 20 MG e 20 MG de 20 MG Clindamycin Clindamycin No Clindamyci HCl 300mg HCl 300mg n HCl 300mg Ventolin Ventolin No 2{puffs QID Ventolin HFA 108 (90 HFA 108 (90 _as_nee HFA 108 Base) Base) ded} (90 Base) MCG/ACT MCG/ACT MCG/ACT Ranitidine Ranitidine No 1{capsu BID Ranitidine HCl 150 MG HCl 150 MG le_at_b HCl 150 MG edtime} Lisinopril- Lisinopril- No 1{table QD Lisinopril hydroCHLORO hydroCHLORO t} -hydroCHLO thiazide thiazide ROthiazide 20-25 MG 20-25 MG 20-25 MG Santyl 250 Santyl 250 No Santyl 250 UNIT/GM UNIT/GM UNIT/GM Mupirocin 2 Mupirocin 2 No 1{appli BID Mupirocin % % cation_ 2 % to_affe cted_ar ea} CeleXA 20 CeleXA 20 No 1{table QD CeleXA 20 MG MG t_at_be MG dtime} Saxenda 18 Saxenda 18 No Saxenda 18 MG/3ML MG/3ML MG/3ML Wellbutrin Wellbutrin No 1{table QD Wellbutrin SR 150 MG SR 150 MG t_in_th SR 150 MG e_morni ng} Lisinopril- Lisinopril- No Lisinopril hydroCHLORO hydroCHLORO -hydroCHLO thiazide thiazide ROthiazide 20-25 MG 20-25 MG 20-25 MG Citalopram Citalopram No Citalopram Hydrobromid Hydrobromid Hydrobromi e 20 MG e 20 MG de 20 MG ZyrTEC ZyrTEC No 1{table QD ZyrTEC Allergy 10 Allergy 10 t} Allergy 10 MG MG MG buPROPion buPROPion No buPROPion HCl ER (SR) HCl ER (SR) HCl ER 150 MG 150 MG (SR) 150 MG Clindamycin Clindamycin No Clindamyci HCl 300mg HCl 300mg n HCl 300mg Ventolin Ventolin No 2{puffs QID Ventolin HFA 108 (90 HFA 108 (90 _as_nee HFA 108 Base) Base) ded} (90 Base) MCG/ACT MCG/ACT MCG/ACT Vitamin D Vitamin D 2022- No Vitamin D (Ergocalcif (Ergocalcif 02-15 (Ergocalci fuad) 1.25 fuad) 1.25 00:00 ferol) MG (14454 MG (10577 :00 1.25 MG UT) UT) (03586 UT) Vitamin D Vitamin D 2022- No Vitamin D (Ergocalcif (Ergocalcif 02-15 (Ergocalci fuad) 1.25 fuad) 1.25 00:00 ferol) MG (62365 MG (59844 :00 1.25 MG UT) UT) (32386 UT) Vitamin D Vitamin D 2022- No Vitamin D (Ergocalcif (Ergocalcif 02-15 (Ergocalci fuad) 1.25 fuad) 1.25 00:00 ferol) MG (90702 MG (95549 :00 1.25 MG UT) UT) (63687 UT) Vitamin D Vitamin D 2022- No Vitamin D (Ergocalcif (Ergocalcif 02-15 (Ergocalci fuad) 1.25 fuad) 1.25 00:00 ferol) MG (33362 MG (68353 :00 1.25 MG UT) UT) (49714 UT) Vitamin D Vitamin D 2022- No Vitamin D (Ergocalcif (Ergocalcif 02-15 (Ergocalci fuad) 1.25 fuad) 1.25 00:00 ferol) MG (68924 MG (54816 :00 1.25 MG UT) UT) (46925 UT) Vitamin D Vitamin D 2022- No Vitamin D (Ergocalcif (Ergocalcif 02-15 (Ergocalci fuad) 1.25 fuad) 1.25 00:00 ferol) MG (77471 MG (99395 :00 1.25 MG UT) UT) (30144 UT) Vitamin D Vitamin D 2022- No Vitamin D (Ergocalcif (Ergocalcif 02-15 (Ergocalci fuad) 1.25 fuad) 1.25 00:00 ferol) MG (52349 MG (34745 :00 1.25 MG UT) UT) (39109 UT) Ergocalcife Ergocalcife 2021- No 1{capsu Ergocalcif rol 91480 rol 46207 08-25 le} fuad [id number] UNIT UNIT 00:00 UNIT :00 Immunizations Ordered Immunization Filled Immunization Date Status Commen ts Source Name Name Flucelvax - single Flucelvax - single 2022-08-15 [facility]pleted [facility] dose syringe 16:54:00 - [facility] Flucelvax - single Flucelvax - single 2022-08-15 Completed [facility] dose syringe dose syringe 16:54:00 - [facility] Flucelvax - single Flucelvax - single 2022-08-15 Completed [facility] dose syringe dose syringe 16:54:00 - [facility] Moderna COVID-19 Moderna COVID-19 2021-07-12 Completed [facility] Vaccine Vaccine 12:11:00 - [facility] Moderna COVID-19 Moderna COVID-19 2021-07-12 Completed [facility] Vaccine Vaccine 12:11:00 - [facility] Moderna COVID-19 Moderna COVID-19 2021-07-12 Completed [facility] Vaccine Vaccine 12:11:00 - [facility] Moderna COVID-19 Moderna COVID-19 2021-07-12 Completed [facility] Vaccine 12:11:00 - [facility] Moderna COVID-19 Moderna COVID-19 2021-07-12 Completed [facility] Vaccine Vaccine 12:11:00 - [facility] Moderna COVID-19 Moderna COVID-19 2021-07-12 Completed [facility] Vaccine 12:11:00 - [facility] Moderna COVID-19 Moderna COVID-19 2021-07-12 Completed [facility] Vaccine 12:11:00 [facility] Moderna COVID-19 Moderna COVID-19 2021-07-12 Completed [facility] Vaccine Vaccine 12:11:00 [facility] Moderna COVID-19 Moderna COVID-19 2021-07-12 Completed [facility] Vaccine Vaccine 12:11:00 - [facility] Moderna COVID-19 Moderna COVID-19 2021-07-12 Completed [facility] Vaccine Vaccine 12:11:00 [facility] Moderna COVID-19 Moderna COVID-19 2021-07-12 Completed [facility] Vaccine Vaccine 12:11:00 [facility] Moderna COVID-19 Moderna COVID-19 2021-07-12 Completed [facility] Vaccine Vaccine 12:11:00 [facility] Moderna COVID-19 Moderna COVID-19 2021-07-12 Completed [facility] Vaccine Vaccine 12:11:00 [facility] Moderna COVID-19 Moderna COVID-19 2021-07-12 Completed [facility] Vaccine Vaccine 12:11:00 [facility] Moderna COVID-19 Moderna COVID-19 2021-07-12 Completed [facility] Vaccine Vaccine 12:11:00 [facility] Moderna COVID-19 Moderna COVID-19 2021-07-12 Completed [facility] Vaccine Vaccine 12:11:00 [facility] Moderna COVID-19 Moderna COVID-19 2021-07-12 Completed [facility] Vaccine Vaccine 12:11:00 - [facility] Moderna COVID-19 Moderna COVID-19 2021-06-07 Completed [facility] Vaccine Vaccine 11:32:00 - [facility] Moderna COVID-19 Moderna COVID-19 2021-06-07 Completed [facility] Vaccine Vaccine 11:32:00 - [facility] Moderna COVID-19 Moderna COVID-19 2021-06-07 Completed [facility] Vaccine Vaccine 11:32:00 - [facility] Moderna COVID-19 Moderna COVID-19 2021-06-07 Completed [facility] Vaccine Vaccine 11:32:00 - [facility] Moderna COVID-19 Moderna COVID-19 2021-06-07 Completed [facility] Vaccine Vaccine 11:32:00 - [facility] Moderna COVID-19 Moderna COVID-19 2021-06-07 Completed [facility] Vaccine Vaccine 11:32:00 - [facility] Moderna COVID-19 Moderna COVID-19 2021-06-07 Completed [facility] Vaccine Vaccine 11:32:00 - [facility] Moderna COVID-19 Moderna COVID-19 2021-06-07 Completed [facility] Vaccine Vaccine 11:32:00 - [facility] Moderna COVID-19 Moderna COVID-19 2021-06-07 Completed [facility] Vaccine Vaccine 11:32:00 - [facility] Moderna COVID-19 Moderna COVID-19 2021-06-07 Completed [facility] Vaccine Vaccine 11:32:00 - [facility] Moderna COVID-19 Moderna COVID-19 2021-06-07 Completed [facility] Vaccine Vaccine 11:32:00 - [facility] Moderna COVID-19 Moderna COVID-19 2021-06-07 Completed [facility] Vaccine Vaccine 11:32:00 - [facility] Moderna COVID-19 Moderna COVID-19 2021-06-07 Completed [facility] Vaccine Vaccine 11:32:00 - [facility] Moderna COVID-19 Moderna COVID-19 2021-06-07 Completed [facility] Vaccine Vaccine 11:32:00 - [facility] Moderna COVID-19 Moderna COVID-19 2021-06-07 Completed [facility] Vaccine Vaccine 11:32:00 - [facility] Moderna COVID-19 Moderna COVID-19 2021-06-07 Completed [facility] Vaccine Vaccine 11:32:00 - [facility] Moderna COVID-19 Moderna COVID-19 2021-06-07 Completed [facility] Vaccine Vaccine 11:32:00 - [facility] Flucelvax - Flucelvax - 2018-12-16 Completed [facility] multidose vial 14:27:00 - [facility] Flucelvax - Flucelvax - 2018-12-16 Completed [facility]ial multidose vial 14:27:00 - [facility] Flucelvax - Flucelvax - 2018-12-16 Completed [facility]ose [facility]ial multidose vial 14:27:00 - [facility] Flucelvax - Flucelvax - 2018-12-16 Completed [facility] multidose [facility]ial multidose vial 14:27:00 - [facility] Flucelvax - Flucelvax - 2018-12-16 Completed [facility] multidose [facility]ial multidose vial 14:27:00 - [facility] Flucelvax - Flucelvax - 2018-12-16 Completed [facility] multidose vial multidose vial 14:27:00 - [facility] Flucelvax - Flucelvax - 2018-12-16 Completed [facility] multidose vial multidose vial 14:27:00 - [facility] Flucelvax - Flucelvax - 2018-12-16 Completed [facility] multidose vial multidose vial 14:27:00 - [facility] Flucelvax - Flucelvax - 2018-12-16 Completed [facility] multidose [facility]ial multidose vial 14:27:00 - [facility] Flucelvax - Flucelvax - 2018-12-16 Completed [facility]ose [facility]ial multidose vial 14:27:00 - [facility] Flucelvax - Flucelvax - 2018-12-16 Completed [facility] multidose vial multidose vial 14:27:00 - [facility] Flucelvax - Flucelvax - 2018-12-16 Completed [facility] multidose vial multidose vial 14:27:00 - [facility] Flucelvax - Flucelvax - 2018-12-16 Completed [facility] multidose vial multidose vial 14:27:00 - [facility] Flucelvax - Flucelvax - 2018-12-16 Completed [facility] multidose [facility]ial multidose vial 14:27:00 - [facility] Flucelvax - Flucelvax - 2018-12-16 Completed [facility] multidose vial multidose vial 14:27:00 - [facility] Flucelvax - Flucelvax - 2018-12-16 Completed [facility] multidose vial multidose vial 14:27:00 - [facility] Flucelvax - Flucelvax - 2018-12-16 Completed [facility] multidose vial multidose vial 14:27:00 - [facility] Flucelvax - Flucelvax - 2018-12-16 Completed [facility] multidose [facility]ial multidose vial 00:00:00 - [facility] Vital Signs Vital Name Observation Time Observation Value Comments Source height 2022-08-15 14:00:00 67.00 [in_i] [facility] weight 2022-08-15 14:00:00 430.0 [lb_av] [facility] temperature 2022-08-15 14:00:00 97.8 [degF] [facility] bmi 2022-08-15 14:00:00 67.34 kg/m2 [facility] oximetry 2022-08-15 14:00:00 97 % [facility] respiratory rate 2022-08-15 14:00:00 16 /min [facility] blood pressure 2022-08-15 14:00:00 132 mm[Hg] [facility] - systolic [facility] blood pressure 2022-08-15 14:00:00 79 mm[Hg] [facility] - diastolic [facility] height 2022-06-06 14:40:00 67.00 [in_i] [facility] weight 2022-06-06 14:40:00 461 [lb_av] [facility] bmi 2022-06-06 14:40:00 72.19 kg/m2 [facility] height 2022-03-06 10:20:00 67.00 [in_i] [facility] weight 2022-03-06 10:20:00 461 [lb_av] [facility] bmi 2022-03-06 10:20:00 72.19 kg/m2 [facility] height 2021-12-03 08:00:00 67.00 [in_i] [facility] weight 2021-12-03 08:00:00 461.2 [lb_av] [facility] temperature 2021-12-03 08:00:00 97.3 [degF] [facility] bmi 2021-12-03 08:00:00 72.23 kg/m2 [facility] oximetry 2021-12-03 08:00:00 96 % [facility] blood pressure 2021-12-03 08:00:00 138 mm[Hg] [facility] - systolic [facility] blood pressure 2021-12-03 08:00:00 70 mm[Hg] [facility] - diastolic [facility] height 2021-12-03 08:20:00 67.00 [in_i] [facility] weight 2021-12-03 08:20:00 461.2 [lb_av] Common [facility] temperature 2021-12-03 08:20:00 97.3 [degF] [facility] bmi 2021-12-03 08:20:00 72.23 kg/m2 [facility] oximetry 2021-12-03 08:20:00 96 % [facility] respiratory rate 2021-12-03 08:20:00 16 /min Comm on [facility] blood pressure 2021-12-03 08:20:00 138 mm[Hg] Common [facility] systolic [facility] blood pressure 2021-12-03 08:20:00 70 mm[Hg] [facility] diastolic [facility] Procedures This patient has no known procedures. Encounters Start End Encounter Admission Attending Care Care Encounter Source Date/Time Date/Time Type Type Clinicians Facility Department ID 2023-02-24 Outpatient Nix, STLMLC STLMLC [id number] Common 08:03:00 Avnee [id number] [facility] 2023-02-20 Outpatient Anahy, STLMLC STLMLC [id number] Common 11:05:01 Monserrat [id number] [facility] 2022-11-27 Outpatient Anahy, STLMLC STLMLC [id number] Common 15:02:00 Monserrat [id number] [facility] 2022-08-13 Outpatient Turner, Na STLMLC STLMLC [id number] Common 13:37:00 [facility] 2022-08-05 Outpatient Turner, Na STLMLC STLMLC [id number] Common 14:08:00 [facility] 2022-06-04 Outpatient Turner, Na STLMLC STLMLC [id number] Common 11:04:00 [facility] 2022-03-19 Outpatient Turner, Na STLMLC STLMLC [id number] Common 08:06:00 [facility] 2022-03-04 Outpatient Turner, Na STLMLC STLMLC [id number] 2 Common 16:44:00 [facility] 2022-02-14 Outpatient Turner, Na STLMLC STLMLC [id number] Common 15:01:01 [facility] 2021-11-29 Outpatient Turner, Na STLMLC STLMLC [id number] Common 08:53:01 [facility] 2021-11-13 Outpatient Turner, Na STLMLC STLMLC [id number] 2 Common 14:22:22 [id number] [facility] 2021-11-13 Outpatient Turner, Na STLMLC STLMLC [id number] 2 Common 13:57:22 [id number] [facility] 2021-11-13 Outpatient Turner, Na STLMLC STLMLC [id number] 2 Common 13:53:14 [id number] [facility] 2021-11-13 Outpatient Turner, Na STLMLC STLMLC [id number] 2 Common 13:38:11 13453 [facility] 2021-11-13 Outpatient Turner, Na STLMLC STLMLC [id number] 2 Common 13:21:01 11614 [facility] 2021-11-13 Outpatient Turner, Na STLMLC STLMLC [id number] 2 Common 12:48:26 [id number] [facility] 2021-11-13 Outpatient Turner, Na STLMLC STLMLC [id number] 2 Common 11:50:20 [id number] [facility] 2021-11-13 Outpatient Turner, Na STLMLC STLMLC [id number] 2 Common 11:47:13 [id number] [facility] 2021-11-13 Outpatient Turner, Na STLMLC STLMLC [id number] 2 Common 11:21:11 [id number] [facility] 2022-11-27 2022-11-27 (TEL) STLMLC STLMLC [id number] [facility] 00:00:00 00:00:00 [facility] 2022-08-19 2022-08-19 (TEL) STLMLC STLMLC [id number] [facility] 00:00:00 00:00:00 [facility] 2022-08-15 2022-08-15 OFFICE STLMLC STLMLC [id number] [facility]mon 00:00:00 00:00:00 VISIT EST Spir it PT LEVEL 3 [facility] 2022-07-10 2022-07-10 (TEL) STLMLC STLMLC [id number] [facility] 00:00:00 00:00:00 [facility] 2022-07-09 2022-07-09 OFFICE STLMLC STLMLC [id number] [facility] 00:00:00 00:00:00 VISIT EST Spir it PT LEVEL 3 [facility] 2022-07-07 2022-07-07 (TEL) STLMLC STLMLC [id number] [facility] 00:00:00 00:00:00 [facility] 2022-06-10 2022-06-10 (TEL) STLMLC STLMLC [id number] [facility] 00:00:00 00:00:00 [facility] 2022-06-06 2022-06-06 OL DIG E/M STLMLC STLMLC [id number] Common 00:00:00 00:00:00 [facility] 11-20 Spir it MIN [facility] 2022-03-14 2022-03-14 (TEL) STLMLC STLMLC [id number] [facility] 00:00:00 00:00:00 [facility] 2022-03-06 2022-03-06 OFFICE STLMLC STLMLC [id number] [facility] 00:00:00 00:00:00 VISIT EST Spir it PT LEVEL 3 [facility] 2021-12-03 2021-12-03 SUB ANNUAL STLMLC STLMLC [id number] Common 00:00:00 00:00:00 MCR [facility] VISIT [facility] 2021-12-032021-12-03 OFFICE STLMLC STLMLC [id number] [facility]mon 00:00:00 00:00:00 VISIT EST Spir it PT LEVEL 3 - [facility] 2021-07-26 2021-07-26 OL DIG E/M STLMLC STLMLC [id number] Common 00:00:00 00:00:00 C 11-20 Spir it MIN [facility] 2021-07-12 2021-07-12 (COVID STLMLC STLMLC [id number] [facility] 00:00:00 00:00:00 Inj) COVID Spi rit Injection [facility] 2021-06-07 2021-06-07 Outpatient STLMLC STLMLC [id number] Common 00:00:00 00:00:00 [facility] 2021-06-07 2021-06-07 Outpatient STLMLC STLMLC [id number] Common 00:00:00 00:00:00 [facility] 2021-04-18 2021-04-18 Outpatient STLMLC STLMLC [id number] Common 00:00:00 00:00:00 [facility] 2021-02-25 2021-02-25 Outpatient STLMLC STLMLC [id number] Common 00:00:00 00:00:00 [facility] 2020-12-26 2020-12-26 Outpatient STLMLC STLMLC [id number] Common 00:00:00 00:00:00 [facility] 2020-08-03 2020-08-03 Outpatient STLMLC STLMLC [id number] Common 00:00:00 00:00:00 [facility] 2020-07-17 2020-07-17 Outpatient STLMLC STLMLC [id number] Common 00:00:00 00:00:00 [facility] 2020-07-13 2020-07-13 Outpatient STLMLC STLMLC [id number] Common 00:00:00 00:00:00 [facility] 2020-07-10 2020-07-10 Outpatient STLMLC STLMLC [id number] Common 00:00:00 00:00:00 [facility] 2020-06-28 2020-06-28 [facility] [id number] Common 13:00:00 13:00:[address] [facility] 2020-06-21 2020-06-21 [facility] [id number] Common 15:38:00 15:38:[address] [facility] 2020-04-24 2020-04-24 [facility] [id number] Common 14:00:00 14:00:[address] [facility] [address] [facility] 2020-04-23 2020-04-23 [facility] [id number] Common 16:20:00 16:20:[address] [facility] [address] [facility] 2020-04-23 2020-04-23 [facility] [id number] Common 09:55:00 09:55:[address] [facility] [address] [facility] 2020-04-13 2020-04-13 [facility] [id number] Common 15:15:00 15:15:[address] [facility] 2020-04-09 2020-04-09 [facility] [id number] Common 14:00:00 14:00:[address] [facility] 2020-02-24 2020-02-24 [facility] [id number] Common 16:06:00 16:06:[address] [facility] 2019-08-31 2019-08-31 [facility] [id number] Common 11:40:00 11:40:[address] [facility] 2019-08-12 2019-08-12 [facility] [id number] Common 08:00:00 08:00:[address] [facility] 2019-08-02 2019-08-02 [facility] [id number] Common 14:20:00 14:20:[address] [facility] 2019-07-25 2019-07-25 [facility] [id number] Common 14:20:00 14:20:[address] [facility] 2019-05-05 2019-05-05 [facility] [id number] Common 13:20:00 13:20:[address] [facility] 2019-01-31 2019-01-31 [facility] [id number] Common 15:00:00 15:00:[address] [facility] 2018-12-16 2018-12-16 [facility] [id number] Common 14:15:00 14:15:[address] [facility] 2018-11-01 2018-11-01 [facility] [id number] Common 09:00:00 09:00:[address] [facility] 2018-06-18 2018-06-18 [facility] [id number] Common 14:40:00 14:40:[address] [facility] 2018-04-19 2018-04-19 [facility] [id number] Common 10:30:00 10:30:[address] [facility] Results This patient has no known results.
--- NOTE | 2023-03-29 20:58 | EDPHYS ---
Physician Documentation [facility] Name: Donato Anderson Age: 28 yrs Sex: Male : 1995 Arrival Date: 03/29/2023 Time: 20:41 Bed 13 Private MD: ED Physician Herbert Allen HPI: 03/29 20:54 This 28 yrs old Male presents to ER via Unassigned with complaints of kb cellulitis. 20:55 The patient presents with cellulitis of the right leg. Description: erythematous, hot, kb swollen. Onset: The symptoms/episode began/occurred yesterday. Possible cause(s): unknown. Associated signs and symptoms: Pertinent positives: erythema, swelling. Modifying factors: the symptoms are alleviated by nothing, the symptoms are aggravated by nothing. Severity of symptoms: At their worst the symptoms were moderate, in the emergency department the symptoms are unchanged. The patient has experienced similar episodes in the past, several times. The patient has not recently seen a physician. Pt reports redness and swelling to right lower leg that started yesterday. Denies fever. States he has had this several times in the past and normally takes antibiotics and it goes away. . Historical: - Allergies: 21:00 PENICILLINS; pf1 21:00 unknown antibiotics; pf1 - PMHx: 21:00 Asthma; Obesity; Sleep Apnea; Cellulitis; pf1 - PSHx: 21:00 vein ablation to legs; pf1 - Immunization history:: Adult Immunizations up to date, Client reports receiving the 2nd dose of the Covid vaccine, Last tetanus immunization: > 10 years ago Flu vaccine is up to date. - Social history:: Smoking status: Patient denies any tobacco usage or history of. Patient/guardian denies using alcohol, street drugs. ROS: 20:55 Constitutional: Negative for fever, chills, and weight loss. kb 20:55 Skin: Positive for cellulitis, of the right leg. 20:55 All other systems are negative. Exam: 20:55 Constitutional: This is a well developed, well nourished patient who is awake, alert, kb and in no acute distress. Head/Face: Normocephalic, atraumatic. ENT: Moist Mucous membranes Cardiovascular: Regular rate and rhythm with a normal S1 and S2. No gallops, murmurs, or rubs. No pulse deficits. Respiratory: Respirations even and unlabored. No increased work of breathing. Talking in full sentences MS/ Extremity: Pulses equal, no cyanosis. Neurovascular intact. Full, normal range of motion. Neuro: Awake and alert, GCS 15, oriented to person, place, time, and situation. Moves all extremities. Normal gait. 20:55 Skin: cellulitis, that is moderate, on the right leg. Vital Signs: 20:57 BP 130 / 73; Pulse 84; Resp 18; Temp 97.9; Pulse Ox 98% on R/A; Weight 93.67 kg; Height pf1 5 ft. 6 in. ; Pain 0/10; 21:08 BP 109 / 60; Pulse 93; Resp 18; Pulse Ox 98% on R/A; kl 20:57 Body Mass Index 33.33 (93.67 kg, 167.64 cm) pf1 20:57 Pain Scale: Adult pf1 MDM: 20:49 Patient medically screened. kb 20:54 Data reviewed: vital signs, nurses notes. kb 20:55 Differential diagnosis: abscess, allergic reaction, cellulitis, insect bite. Test kb considered but Not performed: Labs: serum labs considered, but pt is afebrile, nontoxic in appearance.. Counseling: I had a detailed discussion with the patient and/or guardian regarding: the historical points, exam findings, and any diagnostic results supporting the discharge/admit diagnosis, the need for outpatient follow up, a family practitioner, to return to the emergency department if symptoms worsen or persist or if there are any questions or concerns that arise at home. 20:59 ED course: Pt reports he is allergic to an unknown antibiotic, but it was not kb prescribed from here. Clindamycin was previously prescribed from here and worked so I will prescribe that again. Administered Medications: 21:08 Drug: Clindamycin PO 300 mg Route: PO; kl Disposition Summary: 03/29/23 20:57 Discharge Ordered Location: Home kb Condition: Stable kb Diagnosis - Cellulitis of right lower limb kb Followup: kb - With: Emergency Department - When: As needed - Reason: Worsening of condition Followup: kb - With: Private Physician - When: 2 - 3 days - Reason: Recheck today's complaints, Continuance of care, Re-evaluation by your physician Discharge Instructions: - Discharge Summary Sheet kb - Cellulitis, Adult, [id number] kb Forms: - Medication Reconciliation Form kb - Thank You Letter kb - Antibiotic Education kb - Prescription Opioid Use kb Prescriptions: - Clindamycin HCl 300 mg Oral Capsule - take 1 capsule by ORAL route every 6 hours for 10 days; 40 capsule; Refills: 0, kb Product Selection Permitted Signatures: Katya Louis FNP-C FNP-Ckb Lewis, Kimberly, RN RN kl Annelise Sofia RN RN pf1
--- NOTE | 2023-03-29 21:11 | ER ---
Nurse's Notes [facility] Name: Donato Anderson Age: 28 yrs Sex: Male : 1995 Arrival Date: 03/29/2023 Time: 20:41 Bed 13 Private MD: Diagnosis: Cellulitis of right lower limb Presentation: 03/29 20:57 Chief complaint: Patient states: right lower leg swelling with redness,onset yesterday. pf1 Coronavirus screen: Vaccine status: Patient reports receiving the 2nd dose of the covid vaccine. Moderna Client denies travel out of the [place] in the last 14 days. At this time, the client does not indicate any symptoms associated with coronavirus-19. Ebola Screen: Patient negative for fever greater than or equal to 101.5 degrees Fahrenheit, and additional compatible Ebola Virus Disease symptoms. Initial Sepsis Screen: Does the patient meet any 2 criteria? No. Patient's initial sepsis screen is negative. Does the patient have a suspected source of infection? No. Patient's initial sepsis screen is negative. Risk Assessment: Do you want to hurt yourself or someone else? Patient reports no desire to harm self or others. 20:57 Method Of Arrival: Ambulatory pf1 20:57 Acuity: NEFTALY 4 pf1 21:10 Onset of symptoms. kl Historical: - Allergies: 21:00 PENICILLINS; pf1 21:00 unknown antibiotics; pf1 - PMHx: 21:00 Asthma; Obesity; Sleep Apnea; Cellulitis; pf1 - PSHx: 21:00 vein ablation to legs; pf1 - Immunization history:: Adult Immunizations up to date, Client reports receiving the 2nd dose of the Covid vaccine, Last tetanus immunization: > 10 years ago Flu vaccine is up to date. - Social history:: Smoking status: Patient denies any tobacco usage or history of. Patient/guardian denies using alcohol, street drugs. Screenin:02 [facility] ED Fall Risk Assessment (Adult) History of falling in the last 3 months, pf1 including since admission No falls in past 3 months (0 pts) Confusion or Disorientation No (0 pts) Intoxicated or Sedated No (0 pts) Impaired Gait No (0 pts) Mobility Assist Device Used No (0 pt) Altered Elimination No (0 pt) Score/Fall Risk Level 0 - 2 = Low Risk Oriented to surroundings, Maintained a safe environment, Educated pt \T\ family on fall prevention, incl call for assistance when getting out of bed, Assessed \T\ reinforced patient's understanding of fall precautions, Provided non-skid footwear, Hourly rounding (assess needs \T\ fall precautionary measures) done, Used ambulatory aids as needed (educated on \T\ assisted with), Used gait belt as appropriate. Abuse screen: Denies threats or abuse. Nutritional screening: No deficits noted. Tuberculosis screening: No symptoms or risk factors identified. Assessment: 21:01 General: Appears in no apparent distress. comfortable, obese, well groomed, well pf1 developed, Behavior is calm, cooperative, appropriate for age, quiet. Pain: Denies pain. Neuro: No deficits noted. Level of Consciousness is awake, alert, obeys commands, Oriented to person, place, time, situation. Cardiovascular: No deficits noted. Capillary refill < 3 seconds Patient's skin is warm and dry. Respiratory: No deficits noted. Airway is patent Trachea midline Respiratory effort is even, unlabored, Respiratory pattern is regular, symmetrical. GI: No deficits noted. No signs and/or symptoms were reported involving the gastrointestinal system. : No deficits noted. No signs and/or symptoms were reported regarding the genitourinary system. EENT: No deficits noted. No signs and/or symptoms were reported regarding the EENT system. Derm: Reports redness with swelling to right lower extremity. Vital Signs: 20:57 BP 130 / 73; Pulse 84; Resp 18; Temp 97.9; Pulse Ox 98% on R/A; Weight 93.67 kg; Height pf1 5 ft. 6 in. ; Pain 0/10; 21:08 BP 109 / 60; Pulse 93; Resp 18; Pulse Ox 98% on R/A; kl 20:57 Body Mass Index 33.33 (93.67 kg, 167.64 cm) pf1 20:57 Pain Scale: Adult pf1 ED Course: 20:42 Patient arrived in ED. ja2 20:44 [facility]NP-C [facility] kb 20:44 Herbert Allen MD is Attending Physician. kb 20:57 Annelise Sofia, ANGEL is Primary Nurse. pf1 21:00 Triage completed. pf1 21:03 Patient has correct armband on for positive identification. Bed in low position. Call pf1 light in reach. Side rails up X2. 21:03 No provider procedures requiring assistance completed. pf1 21:09 Patient did not have IV access during this emergency room visit. martin Administered Medications: 21:08 Drug: Clindamycin PO 300 mg Route: PO; martin Medication: 21:08 VIS not applicable for this client. martin Outcome: 20:57 Discharge ordered by . epi 21:09 Discharged to home ambulatory. 21: Condition: stable 21:09 Discharge instructions given to patient, Instructed on discharge instructions, follow up and referral plans. medication usage, Demonstrated understanding of instructions, follow-up care, medications, Prescriptions given X 1. 21:10 Patient left the ED. Signatures: Katya Louis, HIGH DENSITY FINISHING OPERATOR-C HIGH DENSITY FINISHING OPERATOR-Petra Martini, RN RN Kaitlin Bonilla Pamala RN RN pf1
[2023-03-29 21:23] VITALS: TEMP 97.9; O2SAT 98
[2023-03-29 21:25] VITALS: BP 109/60
== END 2023-03-29 21:10 | disposition home or self-care (01) ==
LOC: ER 20:41
DX: L03.115 Cellulitis of right lower limb (principal); Z88.0 Allergy status to penicillin; Z88.1 Allergy status to other antibiotic agents
CPT/HCPCS: 99283

== ENCOUNTER 2024-08-07 20:14 | Emergency (ER) | payer OTHER ==
[2024-08-07 20:58] LABS: Absolute Basophils 0.1 K/uL (0-0.5); Absolute Eosinophils 0.1 K/uL (0-0.5); Absolute Lymphocytes (CBC) 1.2 K/uL (0.7-4.9); Absolute Monocytes 0.5 K/uL (0.1-1.3); Absolute Neutrophil 8.8 K/uL (1.8-8.0); Basophils % 1.1 % (0-1.3); Eosinophils % 1.2 % (0-4.4); Hemoglobin 13.4 g/dL (13.6-17.9); Lymphocytes % 11.2 % (15.3-44.8); MCH 31.4 pg (27.0-35.0); MCHC 34.4 g/dL (32.0-36.0); MCV 91.1 fL (80-100); MPV 7.7 fL (7.6-11.3); Monocytes % 4.4 % (3.3-12.3); Neutrophils % 82.1 % (41.7-73.7); Nucleated Red Blood Cells % 0.1 % (0-0); Platelets 241 thou/uL (152-406); RBC Red Blood Cell Count 4.28 M/uL (4.33-5.43); Red Cell Distribution Width 14.6 % (12.1-15.2)
[2024-08-07 21:10] LABS: Anion Gap 6.5 mEq/L (5.0-15.0); Potassium 3.5 mEq/L (3.5-5.1)
--- NOTE | 2024-08-07 21:20 | RAD REPORT ---
Extremity Venous Uni Ltd CLINICAL INDICATION: Male, 29 years old.Pain;Swelling RIGHT TECHNIQUE: Complete duplex sonography of the lower extremity veins was performed of the affected limb . The examination included compression for vein patency, color Doppler imaging and flow augmentation in response to distal compression of the distal external iliac, common femoral, femoral, popliteal, peroneal, tibial and great saphenous veins. [id number]. COMPARISON: No prior exams FINDINGS: Duplex sonography imaging demonstrates all deep examined to be fully compressible with spontaneous, p hasic and augmented flow in the affected limb. IMPRESSION: No evidence of deep venous thrombosis in the right lower extremity.
--- NOTE | 2024-08-07 21:34 | EDPHYS ---
Physician Documentation [facility] Name: Donato Anderson Age: 29 yrs Sex: Male : 1995 Arrival Date: 08/07/2024 Time: 20:14 Bed 23 Private MD: ED Physician Clarke Ferguson HPI: 08/07 21:51 This 29 yrs old Male presents to ER via Ambulatory with complaints of Swelling ms3 of Lower Extremity, Leg Pain, ITCHING/REDNESS OF LEG. 21:51 29-year-old male with past medical history of asthma, cellulitis, obesity, sleep apnea ms3 presents to the emergency department for right leg swelling that began on Thursday and erythema that began this morning. Patient states he is having mild discomfort in his lower leg. Patient states he has a history of cellulitis in which p.o. antibiotics typically clear. Patient states he has been unable to elevate his leg as he typically does recently.. Historical: - Allergies: 20:29 PENICILLINS; tm6 20:29 unknown antibiotics; tm6 - PMHx: 20:29 Asthma; Cellulitis; Obesity; Sleep Apnea; tm6 - PSHx: 20:29 vein ablation to legs; tm6 - Immunization history:: Client reports receiving the 2nd dose of the Covid vaccine. - Infectious Disease History:: Denies. - Social history:: Smoking status: Patient denies any tobacco usage or history of. Patient/guardian denies using alcohol. ROS: 21:51 Constitutional: Negative for fever, and chills. Neck: Negative for injury, pain, and ms3 swelling, Cardiovascular: Negative for chest pain, and palpitations. Respiratory: Negative for shortness of breath, cough, wheezing, and pleuritic chest pain, Abdomen/GI: Negative for abdominal pain, nausea, vomiting, diarrhea, and constipation, 21:51 MS/extremity: Positive for swelling, of the right leg, 21:51 Skin: Positive for rash, Exam: 21:52 Constitutional: This is a well developed, well nourished patient who is awake, alert, ms3 and in no acute distress. Neck: Trachea midline, no cervical lymphadenopathy. Supple, full range of motion without nuchal rigidity, or vertebral point tenderness. No Meningismus. Chest/axilla: Normal chest wall appearance and motion. Nontender with no deformity. Cardiovascular: Regular rate and rhythm with a normal S1 and S2. No gallops, murmurs, or rubs. Normal PMI, no JVD. No pulse deficits. Respiratory: Lungs have equal breath sounds bilaterally, clear to auscultation and percussion. No rales, rhonchi or wheezes noted. No increased work of breathing, no retractions or nasal flaring. Abdomen/GI: Soft, non-tender, with normal bowel sounds. No distension or tympany. No guarding or rebound. No evidence of tenderness throughout. 21:52 Musculoskeletal/extremity: Pitting edema right lower extremity with mild erythema and warmth. Vital Signs: 20:28 BP 141 / 84; Pulse 81; Resp 22; Temp 98.7(O); Pulse Ox 96% on R/A; MAP 98 mmHg; Weight tm6 213.19 kg; Height 5 ft. 5 in. ; Pain 8/10; 20:30 BP 142 / 68; Pulse 72; Resp 16; Pulse Ox 96% ; me1 21:30 BP 150 / 71; Pulse 67; Resp 16; Temp 98.4; Pulse Ox 98% ; me1 20:28 Body Mass Index 78.21 (213.19 kg, 165.1 cm) tm6 20:28 Pain Scale: Adult tm6 MDM: 20:33 Medical Screening Exam initiated ms3 21:52 Differential diagnosis: DVT versus cellulitis versus lymphedema. Data reviewed: vital ms3 signs, nurses notes, lab test result(s), radiologic studies, and as a result, I will discharge patient. I considered the following discharge prescriptions or medication management in the emergency department Medications were administered in the Emergency Department. See MAR. Counseling: I had a detailed discussion with the patient and/or guardian regarding the historical points, exam findings, and any diagnostic results supporting the discharge/admit diagnosis, lab results, radiology results, the need for outpatient follow up, to return to the emergency department if symptoms worsen or persist or if there are any questions or concerns that arise at home. Special discussion: I discussed with the patient/guardian in detail that at this point there is no indication for admission to the hospital. It is understood, however, that if the symptoms persist or worsen the patient needs to return immediately for re-evaluation. ED course: Discussed ultrasound and labs with patient. Patient to follow-up with primary care physician in 2 to 3 days. All questions were answered. Return precautions discussed include worsening symptoms, or any other concerns. On reevaluation patient is alert and oriented x 4, no apparent distress, nontoxic-appearing, ambulatory in the emergency department.. 08/07 20:34 Order name: CBC with Diff; Complete Time: 21:26 ms3 08/07 20:34 Order name: BMP; Complete Time: 21:26 ms3 08/07 20:34 Order name: Extremity Venous Uni Ltd US; Complete Time: : ms3 Administered Medications: 21:38 Drug: Doxycycline PO 100 mg PO once Route: PO; me1 21:43 Follow up: Response: No adverse reaction me1 Disposition Summary: 08/07/24 21:33 Discharge Ordered Notes: Location: Home ms3 Condition: Stable ms3 Diagnosis - Cellulitis of right lower limb ms3 - Lymphedema, not elsewhere classified ms3 Followup: ms3 - With: Private Physician - When: 2 - 3 days - Reason: Recheck today's complaints Followup: ms3 - With: Parth Luciano DO - When: 2 - 3 days - Reason: Recheck today's complaints Discharge Instructions: - Discharge Summary Sheet ms3 - Cellulitis, Adult ms3 Forms: - Medication Reconciliation Form ms3 - Antibiotic Education ms3 - Prescription Opioid Use ms3 - Patient Portal Instructions ms3 - Leadership Thank You Letter ms3 Prescriptions: - Doxycycline Hyclate 100 mg Oral Tablet - take 1 tablet ORAL route every 12 hours; 20 tablet; Refills: 0, Product ms3 Selection Permitted Signatures: Dispatcher [employer] EDMS Clarke Ferguson DO DO ms3 Janette Trujillo, RN RN me1 Jonah Santos RN RN tm6 Corrections: (The following items were deleted from the chart) 20:34 20:34 Extremity Venous Uni Ltd+[email or web address] ordered. EDMS EDMS
--- NOTE | 2024-08-07 21:34 | ER ---
Nurse's Notes [facility] Name: Donato Anderson Age: 29 yrs Sex: Male : 1995 Arrival Date: 08/07/2024 Time: 20:14 Bed 23 Private MD: Diagnosis: Cellulitis of right lower limb;Lymphedema, not elsewhere classified Presentation: 08/07 20:28 Chief complaint: Patient states: yesterday, right leg started to swell, turn red, and tm6 feels hot to touch. Coronavirus screen: Vaccine status: Patient reports receiving the 2nd dose of the covid vaccine. Client denies travel out of the [place] in the last 14 days. Ebola Screen: Patient negative for fever greater than or equal to 101.5 degrees Fahrenheit, and additional compatible Ebola Virus Disease symptoms Patient denies exposure to infectious person. Patient denies travel to an Ebola-affected area in the 21 days before illness onset. No symptoms or risks identified at this time. Initial Sepsis Screen: Does the patient meet any 2 criteria? RR > 20 per min. Does the patient have a suspected source of infection? No. Patient's initial sepsis screen is negative. Risk Assessment: Do you want to hurt yourself or someone else? Patient reports no desire to harm self or others. Onset of symptoms was August 06, 2024. 20:28 Method Of Arrival: Ambulatory tm6 20:28 Acuity: NEFTALY 3 tm6 Triage Assessment: 20:29 General: Appears in no apparent distress. Behavior is calm, cooperative. Pain: tm6 Complains of pain in right leg Pain currently is 8 out of 10 on a pain scale. EENT: No signs and/or symptoms were reported regarding the EENT system. Neuro: Level of Consciousness is awake, alert, obeys commands, Oriented to person, place, time, situation. Cardiovascular: Patient's skin is warm and dry. Respiratory: Airway is patent Respiratory effort is even, unlabored, Respiratory pattern is regular, symmetrical. GI: No signs and/or symptoms were reported involving the gastrointestinal system. Abdomen is obese. : No signs and/or symptoms were reported regarding the genitourinary system. Derm: Skin is red, right leg. Musculoskeletal: Reports pain in right leg. Historical: - Allergies: 20:29 PENICILLINS; tm6 20:29 unknown antibiotics; tm6 - PMHx: 20:29 Asthma; Cellulitis; Obesity; Sleep Apnea; tm6 - PSHx: 20:29 vein ablation to legs; tm6 - Immunization history:: Client reports receiving the 2nd dose of the Covid vaccine. - Infectious Disease History:: Denies. - Social history:: Smoking status: Patient denies any tobacco usage or history of. Patient/guardian denies using alcohol. Screenin:33 [facility] ED Fall Risk Assessment (Adult) History of falling in the last 3 months, me1 including since admission No falls in past 3 months (0 pts) Confusion or Disorientation No (0 pts) Intoxicated or Sedated No (0 pts) Impaired Gait No (0 pts) Mobility Assist Device Used No (0 pt) Altered Elimination No (0 pt) Score/Fall Risk Level 0 - 2 = Low Risk Maintained a safe environment, Provided non-skid footwear, Hourly rounding (assess needs \\T\\ fall precautionary measures) done. Abuse screen: Denies threats or abuse. Nutritional screening: No deficits noted. Tuberculosis screening: No symptoms or risk factors identified. Assessment: 20:33 General: Appears uncomfortable, obese, well developed, Behavior is calm, cooperative, me1 appropriate for age, Reports yesterday, right leg started to swell, turn red, and feels hot to touch. pain 8/10 "tight". Pain: Complains of pain in lateral aspect of right calf Pain does not radiate. Pain currently is 8 out of 10 on a pain scale. Quality of pain is described as "tight" Pain began gradually, 1 day ago. Is continuous. Neuro: Level of Consciousness is awake, alert, obeys commands, Oriented to person, place, time, situation, Appropriate for age. Cardiovascular: Patient's skin is warm and dry. Respiratory: Airway is patent Respiratory effort is even, unlabored, Respiratory pattern is regular, symmetrical. GI: No signs and/or symptoms were reported involving the gastrointestinal system. : No signs and/or symptoms were reported regarding the genitourinary system. EENT: No signs and/or symptoms were reported regarding the EENT system. Derm: Skin is intact, Skin is pink, warm \\T\\ dry. redness, warmth and swelling noted to right lower leg. Musculoskeletal: Swelling present in lateral aspect of right calf Reports pain in right leg. Vital Signs: 20:28 BP 141 / 84; Pulse 81; Resp 22; Temp 98.7(O); Pulse Ox 96% on R/A; MAP 98 mmHg; Weight tm6 213.19 kg; Height 5 ft. 5 in. ; Pain 8/10; 20:30 BP 142 / 68; Pulse 72; Resp 16; Pulse Ox 96% ; me1 21:30 BP 150 / 71; Pulse 67; Resp 16; Temp 98.4; Pulse Ox 98% ; me1 20:28 Body Mass Index 78.21 (213.19 kg, 165.1 cm) tm6 20:28 Pain Scale: Adult tm6 ED Course: 20:16 Patient arrived in ED. jj6 20:18 Clarke Ferguson DO is Attending Physician. ms3 20:29 Triage completed. tm6 20:29 Arm band placed on right wrist. tm6 20:32 Janette Trujillo, RN is Primary Nurse. me1 20:33 Patient has correct armband on for positive identification. Bed in low position. Call me1 light in reach. Side rails up X2. Provided Education on: POC. Verbalized understanding. . Client placed on continuous cardiac and pulse oximetry monitoring. NIBP monitoring applied. Pulse ox on. NIBP on. 20:33 No provider procedures requiring assistance completed. me1 20:49 BMP Sent. me1 20:49 CBC with Diff Sent. me1 20:50 Initial lab(s) drawn, by me, sent to lab. Inserted saline lock: 22 gauge in right me1 forearm, using aseptic technique. 21:09 Extremity Venous Uni Ltd US In Process Unspecified. EDMS 21:33 Parth Luciano DO is Referral Physician. ms3 21:42 IV discontinued, intact, bleeding controlled, No redness/swelling at site. Pressure me1 dressing applied. Administered Medications: 21:38 Drug: Doxycycline PO 100 mg PO once Route: PO; me1 21:43 Follow up: Response: No adverse reaction me1 Medication: 20:33 VIS not applicable for this client. me1 Outcome: 21:33 Discharge ordered by MD. ms3 21:42 Discharged to home ambulatory, me1 21:42 Condition: stable 21:42 Discharge instructions given to patient, Instructed on discharge instructions, follow up and referral plans. medication usage, Demonstrated understanding of instructions, follow-up care, medications, Prescriptions given X 1, 21:43 Patient left the ED. me1 Signatures: Dispatcher [employer] EDMS Clarke Ferguson, DO ms3 Jackeline Barrera jj6 Janette Trujillo RN RN me1 Jonah Santos RN RN tm6 Corrections: (The following items were deleted from the chart) 20:33 20:28 Chief complaint: Patient states: yesterday, right leg started to swell, turn red, me1 and feels hot to touch tm6
[2024-08-07] MEDS ORDERED: DOXYCYCLINE 100 MG CAP PO ONE (21:37)
[2024-08-08 01:36] VITALS: BP 150/71; TEMP 98.4; O2SAT 98
== END 2024-08-07 21:43 | disposition home or self-care (01) ==
LOC: ER 20:14
DX: L03.115 Cellulitis of right lower limb (principal); I89.0 Lymphedema, not elsewhere classified
CPT/HCPCS: 36415; 80048; 85025; 93971; 99284

== ENCOUNTER 2024-08-31 07:32 | Emergency (ER) | payer OTHER ==
[2024-08-31] MEDS ORDERED: IBUPROFEN 400 MG TAB ONE (08:11)
[2024-08-31] MEDS ORDERED: ONDANSETRON 4 MG (ODT) TAB ONE (08:11)
[2024-08-31] MEDS ORDERED: ALBUTEROL 2.5 MG/3 ML NEB SOL ONE (08:19)
[2024-08-31] MEDS ORDERED: IPRATROPIUM BROM 0.5MG/2.5ML ONE (08:20)
--- NOTE | 2024-08-31 08:32 | RAD REPORT ---
Procedure: Chest Single View HISTORY: Chest pain COMPARISON: January 2024 FINDINGS: The lungs appear clear of acute infiltrate. No significant pleural effusion noted. The heart is normal size. IMPRESSION: No acute abnormality is displayed.
[2024-08-31 08:47] LABS: SARS-CoV-2 Antigen CONTROL BLUE LINE VIS/BG OK; SARS-CoV-2 Antigen Rapid Res Negative (Negative)
--- NOTE | 2024-08-31 08:58 | EDPHYS ---
Physician Documentation [facility] Name: Donato Anderson Age: 29 yrs Sex: Male : 1995 Arrival Date: 08/31/2024 Time: 07:32 Bed 7 Private MD: ED Physician Juan Antonio Najera HPI: 08/31 07:42 This 29 yrs old Male presents to ER via Ambulatory with complaints of Cold ec2 Symptoms. 07:42 Patient arrives today for evaluation of cough and cold symptoms ongoing. Patient ec2 reports has been having cough and congestion as well as subjective fevers and bodyaches and some nausea and vomiting. Patient reports decreased p.o. intake. History of obesity, sleep apnea.. Historical: - Allergies: 07:41 PENICILLINS; ap3 07:41 unknown antibiotics; ap3 - PMHx: 07:41 Asthma; Cellulitis; Obesity; Sleep Apnea; ap3 - PSHx: 07:41 vein ablation to legs; ap3 - Immunization history:: Client reports receiving the 2nd dose of the Covid vaccine. - Infectious Disease History:: Denies. - Social history:: Smoking status: Patient denies any tobacco usage or history of. ROS: 07:42 Constitutional: as per hpi ec2 Exam: 07:42 Constitutional: GEN: NAD Head: atraumatic Eyes: EOMI Ears: External ears are ec2 normal. CV: regular rate LUNGS: no respiratory distress, no wheezes or rales or rhonchi. ABD: non-distended, obese SKIN: no evidence of rashes MSK: no evidence of trauma Vital Signs: 08:41 BP 111 / 72; Pulse 96; Resp 19; Temp 99.6; Pulse Ox 97% ; Pain 9/10; ap3 09:25 BP 108 / 74; Pulse 92; Resp 18; Temp 99.1; Pulse Ox 97% on R/A; Pain 0/10; ll1 08:41 Pain Scale: Adult ap3 09:25 Pain Scale: Adult ll1 MDM: 07:42 Data reviewed: vital signs, nurses notes. ED course: Patient arrives today for upper ec2 respiratory symptoms. Examination remarkable for well-appearing nontoxic individual with a reassuring cardiopulmonary examination. Will obtain viral swabs, chest x-ray and treat the patient's nausea with Zofran and give the patient ibuprofen. Suspect viral infection. Suspicion for pneumonia.. 07:44 Medical Screening Exam initiated ec2 08:45 ED course: Chest x-ray independently reviewed and interpreted by me, shows no acute ec2 intrathoracic process.. 08:57 ED course: On reassessment patient is well-appearing no acute distress. Will discharge ec2 to home, suspect viral infection. Will prescribe albuterol. Return precautions given.. 08/31 07:42 Order name: Influenza Screen (a \T\ B); Complete Time: 08:57 ec2 08/31 07:42 Order name: SARS RAPID; Complete Time: 08:57 ec2 08/31 07:42 Order name: CXR XRAY; Complete Time: 08:44 ec2 Administered Medications: 08:17 Drug: Ondansetron Oral Disintegrating Tablet Oral Disintegrating Tablet 8 mg PO once; ap3 may repeat once in 8-12 hours Route: PO; 09:27 Follow up: Response: No adverse reaction; Nausea is decreased ll1 08:17 Drug: Ibuprofen PO 800 mg PO once Route: PO; ap3 09:27 Follow up: Response: No adverse reaction; Pain is decreased ll1 08:26 Drug: DuoNeb Nebulize (3:1) (2.5 mg - 0.5 mg) 3 ml Nebulizer once Route: Nebulizer; ll1 09:27 Follow up: Response: No adverse reaction ll1 Disposition Summary: 08/31/24 08:57 Discharge Ordered Notes: Location: Home ec2 Condition: Stable ec2 Diagnosis - Viral infection, unspecified ec2 Followup: ec2 - With: Private Physician - When: - Reason: Re-evaluation by your physician Discharge Instructions: - Discharge Summary Sheet ec2 - Viral Illness, Adult ec2 Forms: - Medication Reconciliation Form ec2 - Antibiotic Education ec2 - Prescription Opioid Use ec2 - Patient Portal Instructions ec2 - Leadership Thank You Letter ec2 Prescriptions: - albuterol sulfate 90 mcg/actuation Inhalation HFA Aerosol Inhaler - inhale 2 puff INHALATION route every 3 to 4 hours as needed for bronchospasm; ec2 administer via ventilator; 1 unit; Refills: 0, Product Selection Permitted - Zofran 4 mg Oral Tablet - take 1 tablet ORAL route every 12 hours As needed; 20 tablet; Refills: 0, ec2 Product Selection Permitted Signatures: Dispatcher [employer] EDWinsome Chávez RN RN ap3 Dusty David RN RN ll1 Juan Antonio Najera MD MD ec2 Corrections: (The following items were deleted from the chart) : 07:43 Influenza Screen (A \T\ B)+BA.LAB.BRZ ordered. EDMS EDMS 07:43 SARS-COV-2 Antigen Rapid+I.LAB.BRZ ordered. EDMS EDMS
--- NOTE | 2024-08-31 08:58 | ER ---
Nurse's Notes [facility] Name: Donato Anderson Age: 29 yrs Sex: Male : 1995 Arrival Date: 08/31/2024 Time: 07:32 Bed 7 Private MD: Diagnosis: Viral infection, unspecified Presentation: 08/31 07:39 Chief complaint: Patient states: he has been having vomiting, chills, and feeling ap3 flushed for a few days. patient also reports having "hot urine". Coronavirus screen: Client presents with at least one sign or symptom that may indicate coronavirus-19. Ebola Screen: No symptoms or risks identified at this time. Initial Sepsis Screen: Does the patient meet any 2 criteria? HR > 90 bpm. Does the patient have a suspected source of infection? No. Patient's initial sepsis screen is negative. Risk Assessment: Do you want to hurt yourself or someone else? Patient reports no desire to harm self or others. Onset of symptoms was August 29, 2024. 07:39 Method Of Arrival: Ambulatory ap3 07:39 Acuity: NEFTALY 3 ap3 Triage Assessment: 07:42 General: Appears uncomfortable, Behavior is calm, cooperative, appropriate for age, ap3 Reports chills for fever for feeling ill for fatigue for. Pain: Complains of pain in generalized body aches Pain currently is 9 out of 10 on a pain scale. Neuro: Level of Consciousness is awake, alert, obeys commands, Oriented to person, place, time, situation. Cardiovascular: Patient's skin is warm and dry. Respiratory: Reports shortness of breath Airway is patent Respiratory effort is even, unlabored, Respiratory pattern is regular, symmetrical. GI: Reports nausea, vomiting. Historical: - Allergies: 07:41 PENICILLINS; ap3 07:41 unknown antibiotics; ap3 - PMHx: 07:41 Asthma; Cellulitis; Obesity; Sleep Apnea; ap3 - PSHx: 07:41 vein ablation to legs; ap3 - Immunization history:: Client reports receiving the 2nd dose of the Covid vaccine. - Infectious Disease History:: Denies. - Social history:: Smoking status: Patient denies any tobacco usage or history of. Screenin:42 [facility] ED Fall Risk Assessment (Adult) History of falling in the last 3 months, ap3 including since admission No falls in past 3 months (0 pts) Confusion or Disorientation No (0 pts) Intoxicated or Sedated No (0 pts) Impaired Gait No (0 pts) Mobility Assist Device Used No (0 pt) Altered Elimination No (0 pt) Score/Fall Risk Level 0 - 2 = Low Risk Oriented to surroundings, Maintained a safe environment, Educated pt \\T\\ family on fall prevention, incl call for assistance when getting out of bed, Assessed \\T\\ reinforced patient's understanding of fall precautions, Hourly rounding (assess needs \\T\\ fall precautionary measures) done, Used ambulatory aids as needed (educated on \\T\\ assisted with), Used gait belt as appropriate. Abuse screen: Denies threats or abuse. Nutritional screening: No deficits noted. Tuberculosis screening: No symptoms or risk factors identified. Assessment: 08:28 Reassessment: No changes from previously documented assessment. Patient and/or family ap3 updated on plan of care and expected duration. Pain level reassessed. Patient is alert, oriented x 3, equal unlabored respirations, skin warm/dry/pink. 09:26 Reassessment: No changes from previously documented assessment. Patient and/or family ll1 updated on plan of care and expected duration. Pain level reassessed. Patient is alert, oriented x 3, equal unlabored respirations, skin warm/dry/pink. Vital Signs: 08:41 BP 111 / 72; Pulse 96; Resp 19; Temp 99.6; Pulse Ox 97% ; Pain 9/10; ap3 09:25 BP 108 / 74; Pulse 92; Resp 18; Temp 99.1; Pulse Ox 97% on R/A; Pain 0/10; ll1 08:41 Pain Scale: Adult ap3 09:25 Pain Scale: Adult ll1 ED Course: 07:34 Patient arrived in ED. mg5 07:34 Juan Antonio Najera MD is Attending Physician. ec2 07:40 Triage completed. ap3 07:43 Arm band placed on right wrist. ap3 08:17 Winsome Rodriguez, ANGEL is Primary Nurse. ap3 08:30 CXR XRAY In Process Unspecified. EDMS 09:26 No provider procedures requiring assistance completed. Patient did not have IV access ll1 during this emergency room visit. 09:27 Patient has correct armband on for positive identification. Bed in low position. ll1 Provided Education on: return to ED for worsening symptoms. Administered Medications: 08: Drug: Ondansetron Oral Disintegrating Tablet Oral Disintegrating Tablet 8 mg PO once; ap3 may repeat once in 8-12 hours Route: PO; Follow up: Response: No adverse reaction; Nausea is decreased [facility] 08:17 Drug: Ibuprofen PO 800 mg PO once Route: PO; ap3 09:27 Follow up: Response: No adverse reaction; Pain is decreased [facility] : Drug: DuoNeb Nebulize (3:1) (2.5 mg - 0.5 mg) 3 ml Nebulizer once Route: Nebulizer; 1 : Follow up: Response: No adverse reaction [facility] Medication: : VIS not applicable for this client. [facility] Outcome: :57 Discharge ordered by . ec2 : Discharged to home via wheelchair, [facility] : Condition: stable : Discharge instructions given to patient, Instructed on discharge instructions, follow up and referral plans. medication usage, Demonstrated understanding of instructions, follow-up care, medications, Prescriptions given X 2, : Patient left the ED. [facility] Signatures: Dispatcher [employer] Winsome Javed RN RN ap3 Dusty David RN RN ll1 Olivia Vila mg5 Juan Antonio Najera MD MD 2
[2024-08-31 09:32] VITALS: O2SAT 97
[2024-08-31 09:33] VITALS: BP 108/74; TEMP 99.1
== END 2024-08-31 09:27 | disposition home or self-care (01) ==
LOC: ER 07:32
DX: B34.9 Viral infection, unspecified (principal); Z11.52 Encounter for screening for COVID-19
CPT/HCPCS: 36415; 87804 ×2; 71045; 87811; Q0162; J7613; J7644

== ENCOUNTER 2024-10-02 09:58 | Emergency (ER) | payer OTHER ==
[2024-10-02 11:56] LABS: Absolute Basophils 0.1 K/uL (0-0.5); Absolute Monocytes 0.7 K/uL (0.1-1.3); Absolute Neutrophil 13.7 K/uL (1.8-8.0); Basophils % 0.5 % (0-1.3); Hematocrit 38.4 % (39.6-49.0); Hemoglobin 12.4 g/dL (13.6-17.9); Lymphocytes % 6.6 % (15.3-44.8); MCH 30.2 pg (27.0-35.0); MCHC 32.4 g/dL (32.0-36.0); MCV 93.2 fL (80-100); MPV 7.9 fL (7.6-11.3); Monocytes % 4.3 % (3.3-12.3); Neutrophils % 88.6 % (41.7-73.7); Platelets 238 thou/uL (152-406); RBC Red Blood Cell Count 4.12 M/uL (4.33-5.43); Red Cell Distribution Width 15.2 % (12.1-15.2)
[2024-10-02 12:12] LABS: Albumin 2.6 g/dL (3.4-5.0); Albumin/Globulin Ratio 0.6 (1.1-1.8); Anion Gap 7.4 mEq/L (5.0-15.0); Globulin 4.7 g/dL (2.3-3.5); Potassium 3.4 mEq/L (3.5-5.1); Protein, Total 7.3 g/dL (6.4-8.2)
--- NOTE | 2024-10-02 12:43 | RAD REPORT ---
EXAM:Extremity Venous Uni Ltd HISTORY: Right leg pain TECHNIQUE: Sonographic evaluation right lower extremity performed.Grayscale, color and spectral jose alberto sis performed on all vessels COMPARISON: July 2024 FINDINGS: Right common femoral, superficial femoral, greater saphenous, popliteal and posterior tibial veins ar e compressible and demonstrate augmentation. Doppler demonstrates good flow. IMPRESSION: No evidence of deep venous thrombosis involving the right lower extremity.
[2024-10-02 12:57] LABS: Blood Morphology Comment NOT SEEN (NOT SEEN); Differential Total Cells Count 100; Lymphocytes 6 % (15-42); Monocytes 2 % (0-10); Platelet Estimate ADEQ; Segmented Neutrophils 92 % (40-80)
--- NOTE | 2024-10-02 13:07 | EDPHYS ---
Physician Documentation [facility] Name: Donato Anderson Age: 29 yrs Sex: Male : 1995 Arrival Date: 10/02/2024 Time: 09:58 Bed 14 Private MD: ED Physician Ry Bunch HPI: 10/02 13:28 This 29 yrs old Male presents to ER via Ambulatory with complaints of Fever, dr5 Leg Swelling - right. 13:28 Onset: The symptoms/episode began/occurred acutely, last week. Pt is a 29 year old male dr5 hx of fever and right leg swelling that started about a week ago. Pt has hx of lymphedema and obesity.. Historical: - Allergies: 10:04 PENICILLINS; ll1 10:04 unknown antibiotics; ll1 - PMHx: 10:04 Asthma; Cellulitis; Obesity; Sleep Apnea; ll1 - PSHx: 10:04 vein ablation to legs; ll1 - Immunization history:: Adult Immunizations up to date. - Infectious Disease History:: Denies. - Social history:: Smoking status: Patient denies any tobacco usage or history of. ROS: 13:34 Constitutional: as per hpi dr5 Exam: 13:34 Constitutional: This is a well developed, well nourished patient who is awake, alert, dr5 and in no acute distress. Head/Face: Normocephalic, atraumatic. Eyes: Pupils equal round and reactive to light, extra-ocular motions intact. Lids and lashes normal. Conjunctiva and sclera are non-icteric and not injected. Cornea within normal limits. Periorbital areas with no swelling, redness, or edema. ENT: Nares patent. No nasal discharge, no septal abnormalities noted. Tympanic membranes are normal and external auditory canals are clear. Oropharynx with no redness, swelling, or masses, exudates, or evidence of obstruction, uvula midline. Mucous membranes moist. Neck: Trachea midline, no thyromegaly or masses palpated, and no cervical lymphadenopathy. Supple, full range of motion without nuchal rigidity, or vertebral point tenderness. No Meningismus. Respiratory: Lungs have equal breath sounds bilaterally, clear to auscultation. No rales, rhonchi or wheezes noted. No increased work of breathing, no retractions or nasal flaring. Back: No spinal tenderness. No costovertebral tenderness. Full range of motion. 13:34 Skin: Appearance: Color: normal in color, Temperature: warm, Moisture: dry, swelling, noted on the lateral aspect of right calf, that are mild, cellulitis, that is minimal, on the lateral aspect of right calf, NVI to right foot. 5/5 strength. Swelling / erythema consistent with cellulitis noted to right lower leg.. 13:34 Neuro: Exam negative for acute changes, Vital Signs: 10:04 BP 136 / 67; Pulse 88; Resp 18; Temp 97.2; Pulse Ox 98% ; Weight 217.72 kg; Height 5 ll1 ft. 5 in. ; Pain 8/10; 11:14 BP 129 / 90; Pulse 78; Resp 19; Pulse Ox 96% on R/A; iw 10:04 Body Mass Index 79.88 (217.72 kg, 165.1 cm) ll1 10:04 Pain Scale: Adult ll1 MDM: 10:15 Medical Screening Exam initiated dr5 13:34 Differential diagnosis: viral Infection, bacterial infection, Cellulitis. Data dr5 reviewed: vital signs, nurses notes, radiologic studies, ultrasound. Consideration of Admission/Observation Considered admission if patient had new DVT to right leg with cellulitis.. Care significantly affected by the following chronic conditions: Obesity, asthma, cellulitis, sleep apnea. Care significantly affected by the following Social Determinants of Health: Poor access to healthcare and/or lack of insurance, Poor access to transportation, Problems related to employment. Counseling: I had a detailed discussion with the patient and/or guardian regarding the historical points, exam findings, and any diagnostic results supporting the discharge/admit diagnosis, lab results, radiology results, the need for outpatient follow up, for definitive care, a family practitioner, to return to the emergency department if symptoms worsen or persist or if there are any questions or concerns that arise at home. ED course: Patient negative for DVT on ultrasound. Will send patient home on p.o. antibiotics (doxycycline and Bactrim). Recommended returning to ER if antibiotics do not improve erythema and swelling and possibility of admission for IV antibiotics if failed outpatient. Patient stable on discharge. All questions answered. Patient's agreeable to plan. 10/02 11:23 Order name: CBC with Diff; Complete Time: 13:02 dr5 10/02 11:23 Order name: CMP; Complete Time: 12:16 dr5 10/02 12:00 Order name: Manual Differential; Complete Time: 13:02 EDMS 10/02 11:23 Order name: US Extremity Venous Unilateral Ltd; Complete Time: 12:48 dr5 Administered Medications: No medications were administered Disposition Summary: 10/02/24 13:07 Discharge Ordered Notes: Location: Home dr5 Condition: Stable dr5 Diagnosis - Cellulitis of right lower limb dr5 Followup: dr5 - With: Emergency Department - When: As needed - Reason: Worsening of condition Followup: dr5 - With: Private Physician - When: 1 - 2 days - Reason: Recheck today's complaints, Continuance of care, Re-evaluation by your physician Discharge Instructions: - Discharge Summary Sheet dr5 - Cellulitis, Adult, [id number] dr5 Forms: - Medication Reconciliation Form dr5 - Antibiotic Education dr5 - Patient Portal Instructions dr5 - Leadership Thank You Letter dr5 Prescriptions: - Doxycycline Hyclate 100 mg Oral Tablet - take 1 tablet ORAL route every 12 hours; 20 tablet; Refills: 0, Product dr5 Selection Permitted - Bactrim DS 800-160 mg Oral Tablet - take 1 tablet ORAL route every 12 hours for 7 days; 14 tablet; Refills: 0, dr5 Product Selection Permitted Signatures: Dispatcher [employer] Yocasta Camilo RN RN iw Lewis, Lynsay, RN RN ll1 Dimitri Perez, LOCOMOTIVE OILER-C LOCOMOTIVE OILER-Cdr5
--- NOTE | 2024-10-02 13:07 | ER ---
Nurse's Notes [facility] Name: Donato Anderson Age: 29 yrs Sex: Male : 1995 Arrival Date: 10/02/2024 Time: 09:58 Bed 14 Private MD: Diagnosis: Cellulitis of right lower limb Presentation: 10/02 10:04 Chief complaint: Patient states: RLE redness, pain, and swelling for 2 days. ll1 Coronavirus screen: Client denies travel out of the [place] in the last 14 days. At this time, the client does not indicate any symptoms associated with coronavirus-19. Ebola Screen: Patient denies travel to an Ebola-affected area in the 21 days before illness onset. Initial Sepsis Screen: Does the patient meet any 2 criteria? No. Patient's initial sepsis screen is negative. Does the patient have a suspected source of infection? No. Patient's initial sepsis screen is negative. Risk Assessment: Do you want to hurt yourself or someone else? Patient reports no desire to harm self or others. Onset of symptoms was October 01, 2024. 10:04 Method Of Arrival: Ambulatory ll1 10:04 Acuity: NEFTALY 3 ll1 Triage Assessment: 10:04 General: Appears uncomfortable, Behavior is calm, cooperative, appropriate for age. ll1 Pain: Complains of pain in right leg Quality of pain is described as aching. Derm: Reports redness/pain to RLE. Historical: - Allergies: 10:04 PENICILLINS; ll1 10:04 unknown antibiotics; ll1 - PMHx: 10:04 Asthma; Cellulitis; Obesity; Sleep Apnea; ll1 - PSHx: 10:04 vein ablation to legs; ll1 - Immunization history:: Adult Immunizations up to date. - Infectious Disease History:: Denies. - Social history:: Smoking status: Patient denies any tobacco usage or history of. Screenin:14 [facility] ED Fall Risk Assessment (Adult) History of falling in the last 3 months, iw including since admission No falls in past 3 months (0 pts) Confusion or Disorientation No (0 pts) Intoxicated or Sedated No (0 pts) Impaired Gait No (0 pts) Mobility Assist Device Used No (0 pt) Altered Elimination No (0 pt) Score/Fall Risk Level 0 - 2 = Low Risk Oriented to surroundings. Abuse screen: Denies threats or abuse. Nutritional screening: No deficits noted. Tuberculosis screening: No symptoms or risk factors identified. Assessment: 11:07 General: Appears in no apparent distress. Behavior is calm, cooperative. Pain: iw Complains of pain in right calf and right serra Quality of pain is described as tightness. Neuro: Level of Consciousness is awake, alert, obeys commands, Oriented to person, place, time, situation, Moves all extremities. Full function. Cardiovascular: Patient's skin is warm and dry. Respiratory: Respiratory effort is even, unlabored, Respiratory pattern is regular, symmetrical. GI: Abdomen is non-distended, obese. Derm: Skin is redness and swelling around right calf. Musculoskeletal: Range of motion: intact in all extremities. 11:56 Reassessment: Patient appears in no apparent distress at this time. US at bedside. iw 13:24 Reassessment: Patient appears in no apparent distress at this time. Patient and/or iw family updated on plan of care and expected duration. Pain level reassessed. Patient is alert, oriented x 3, equal unlabored respirations, skin warm/dry/pink. Vital Signs: 10:04 BP 136 / 67; Pulse 88; Resp 18; Temp 97.2; Pulse Ox 98% ; Weight 217.72 kg; Height 5 ll1 ft. 5 in. ; Pain 8/10; 11:14 BP 129 / 90; Pulse 78; Resp 19; Pulse Ox 96% on R/A; iw 10:04 Body Mass Index 79.88 (217.72 kg, 165.1 cm) ll1 10:04 Pain Scale: Adult ll1 ED Course: 10:00 Patient arrived in ED. im 10:05 Triage completed. ll1 10:05 Arm band placed on. ll1 10:10 Dimitri Perez FNP-C is PHCP. dr5 10:10 Ry Bunch MD is Attending Physician. dr5 10:34 Patient placed in an exam room, on a stretcher. ll1 10:50 Yocasta Denise, RN is Primary Nurse. iw 11:07 Patient has correct armband on for positive identification. Provided Education on: POC. iw 11:15 No provider procedures requiring assistance completed. iw 12:00 Initial lab(s) drawn, by me, sent to lab. Inserted saline lock: 22 gauge in right iw forearm, using aseptic technique. Blood collected. Flushed with 10 mL NS. 12:23 US Extremity Venous Unilateral Ltd In Process Unspecified. EDMS 13:26 IV discontinued, intact, bleeding controlled, No redness/swelling at site. Pressure iw dressing applied. Administered Medications: No medications were administered Medication: 11:14 VIS not applicable for this client. iw Outcome: 13:07 Discharge ordered by . dr5 13:26 Discharged to home ambulatory, iw 13:26 Condition: good 13:26 Discharge instructions given to patient, Instructed on discharge instructions, follow up and referral plans. medication usage, Demonstrated understanding of instructions, follow-up care, medications, Prescriptions given X 2, 13:27 Patient left the ED. iw Signatures: Dispatcher [employer] EDMS Yocasta Denise, RN RN iw Dusty David RN RN ll1 Arlene Taylor Dustin, BOOSTER PLANT OPERATOR-C BOOSTER PLANT OPERATOR-Cdr5
[2024-10-02 13:31] VITALS: TEMP 97.2
[2024-10-02 13:33] VITALS: BP 129/90; O2SAT 96
== END 2024-10-02 13:27 | disposition home or self-care (01) ==
LOC: ER 09:58
DX: L03.115 Cellulitis of right lower limb (principal)
CPT/HCPCS: 36415; 80053; 85025; 93971; 99284

== ENCOUNTER 2024-11-17 16:36 | Inpatient (IN) | payer OTHER ==
--- NOTE | 2024-11-17 18:34 | RAD REPORT ---
EXAM:Extremity Venous Uni Ltd HISTORY: Right leg pain TECHNIQUE: Sonographic evaluation right lower extremity performed.Grayscale, color and spectral jose alberto sis performed on all vessels COMPARISON: September 2024. FINDINGS: Right common femoral, superficial femoral, greater saphenous, popliteal and posterior tibial veins ar e compressible and demonstrate augmentation. Doppler demonstrates good flow. IMPRESSION: No evidence of deep venous thrombosis involving the right lower extremity.
[2024-11-17 19:15] LABS: Absolute Lymphocytes (CBC) 0.6 K/uL (0.7-4.9); Absolute Monocytes 0.5 K/uL (0.1-1.3); Absolute Neutrophil 21.4 K/uL (1.8-8.0); Basophils % 0.2 % (0-1.3); Hematocrit 43.2 % (39.6-49.0); Hemoglobin 14.6 g/dL (13.6-17.9); Lymphocytes % 2.7 % (15.3-44.8); MCH 31.1 pg (27.0-35.0); MCHC 33.8 g/dL (32.0-36.0); MPV 8.1 fL (7.6-11.3); Monocytes % 2.4 % (3.3-12.3); Neutrophils % 94.7 % (41.7-73.7); Nucleated Red Blood Cells % 0.1 % (0-0); Platelets 262 thou/uL (152-406); Red Cell Distribution Width 14.9 % (12.1-15.2)
[2024-11-17] MEDS ORDERED: VANCOMYCIN 1 GM/VIAL ONE (19:27)
[2024-11-17] MEDS ORDERED: KETOROLAC 30 MG/ML INJ ONE (19:27)
[2024-11-17] MEDS ORDERED: NA CHLORIDE 0.9% 250 ML ONE (19:27)
[2024-11-17] MEDS ORDERED: NA CHLORIDE 0.9% 1,000 ML ONE (19:28)
[2024-11-17 19:30] LABS: PT Prothrombin Time 15.7 SECONDS (9.4-12.5); PTT, Activated Partial Thromb 34.3 SECONDS (24.3-36.9); Protime INR 1.5
[2024-11-17 19:57] LABS: Albumin 2.8 g/dL (3.4-5.0); Albumin/Globulin Ratio 0.6 (1.1-1.8); Anion Gap 11.9 mEq/L (5.0-15.0); Bilirubin Total 1.6 mg/dL (0.2-1.0); Globulin 4.9 g/dL (2.3-3.5); Potassium 3.9 mEq/L (3.5-5.1); Protein, Total 7.7 g/dL (6.4-8.2)
--- NOTE | 2024-11-17 20:04 | EDPHYS ---
Physician Documentation [facility] Name: Donato Anderson Age: 29 yrs Sex: Male : 1995 Arrival Date: 11/17/2024 Time: 16:36 Bed 16 Private MD: ED Physician Eyad Veronica HPI: 11/17 17:59 This 29 yrs old Male presents to ER via Ambulatory with complaints of Flu rt Symptoms. 17:59 Patient with previous episodes of cellulitis presents to the ED with swelling, redness rt to the right lower extremity starting this morning. He has associated chills, believes that he is a fever. Denies other acute complaints at this time, symptoms are moderate severity, no other aggravating or elevating factors.. Historical: - Allergies: 17:26 PENICILLINS; jb4 17:26 unknown antibiotics; jb4 - PMHx: 17:26 Asthma; Cellulitis; Obesity; Sleep Apnea; jb4 - PSHx: 17:26 vein ablation to legs; jb4 - Immunization history:: Adult Immunizations up to date. - Infectious Disease History:: Denies. - Social history:: Smoking status: Patient denies any tobacco usage or history of. - Family history:: not pertinent. ROS: 17:59 Cardiovascular: Negative for chest pain, palpitations, and edema, Respiratory: Negative rt for shortness of breath, cough, wheezing, and pleuritic chest pain, Abdomen/GI: Negative for abdominal pain, nausea, vomiting, diarrhea, and constipation, 17:59 Constitutional: Positive for body aches, chills, malaise, 17:59 MS/extremity: Positive for erythema, pain, swelling, Exam: 17:59 Constitutional: This is a well developed, well nourished patient who is awake, alert, rt and in no acute distress. Head/Face: Normocephalic, atraumatic. Chest/axilla: Normal chest wall appearance and motion. Nontender with no deformity. No lesions are appreciated. Cardiovascular: Regular rate and rhythm with a normal S1 and S2. No gallops, murmurs, or rubs. Normal PMI, no JVD. No pulse deficits. Respiratory: Lungs have equal breath sounds bilaterally, clear to auscultation and percussion. No rales, rhonchi or wheezes noted. No increased work of breathing, no retractions or nasal flaring. Abdomen/GI: Soft, non-tender, with normal bowel sounds. No distension or tympany. No guarding or rebound. No evidence of tenderness throughout. Skin: Warm, dry with normal turgor. Normal color with no rashes, no lesions, and no evidence of cellulitis. Neuro: Awake and alert, GCS 15, oriented to person, place, time, and situation. Cranial nerves II-XII grossly intact. Motor strength 5/5 in all extremities. Sensory grossly intact. Cerebellar exam normal. Normal gait. 17:59 Musculoskeletal/extremity: Warmth, swelling, tenderness to the distal right lower extremity, pulses, motor, sensation intact. 20:09 ECG was reviewed by the Attending Physician. rt Vital Signs: 17:24 BP 108 / 65; Pulse 88; Resp 16; Temp 98.3(O); Pulse Ox 96% ; Weight 215.46 kg (R); jb4 Height 5 ft. 5 in. (R); Pain 7/10; 19:10 BP 125 / 66; Pulse 76; Resp 19; Pulse Ox 94% on R/A; cm10 20:06 BP 118 / 75; Pulse 78; Resp 19; Temp 98(O); Pulse Ox 98% on R/A; Pain 0/10; rg5 17:24 Body Mass Index 79.04 (215.46 kg, 165.1 cm) jb4 17:24 Pain Scale: Adult jb4 20:06 Pain Scale: Adult rg5 [place] Coma Score: 20:04 Eye Response: spontaneous(4). Motor Response: obeys commands(6). Verbal Response: rg5 oriented(5). Total: 15. MDM: 17:28 Medical Screening Exam initiated rt 20:09 Differential Diagnosis Cellulitis, DVT, sepsis. Data reviewed: vital signs, nurses rt notes, lab test result(s), EKG, radiologic studies. Consideration of Admission/Observation Patient was admitted/placed on observation. Management of patient was discussed with the following: Hospitalist: Agrees to admit. I considered the following discharge prescriptions or medication management in the emergency department Medications were administered in the Emergency Department. See MAR. Care significantly affected by the following chronic conditions: Lymphedema. Counseling: I had a detailed discussion with the patient and/or guardian regarding the historical points, exam findings, and any diagnostic results supporting the discharge/admit diagnosis, lab results, radiology results, the need for further work-up and treatment in the hospital. Response to treatment: There is no appreciated change of the patient's symptoms at this time. 11/17 17:36 Order name: Blood Culture Adult (2) rt 11/17 17:36 Order name: CBC with Diff; Complete Time: 19:49 rt 11/17 17:36 Order name: CMP; Complete Time: 19:58 rt 11/17 17:36 Order name: Lactate w/ 2H reflex if indic.; Complete Time: 19:58 rt 11/17 17:36 Order name: Protime (+inr); Complete Time: 19:49 rt 11/17 17:36 Order name: Ptt, Activated; Complete Time: 19:49 rt 11/17 20:41 Order name: Basic Metabolic Panel EDMS 11/17 20:41 Order name: Basic Metabolic Panel EDMS 11/17 20:41 Order name: CBC with Automated Diff EDMS 11/17 20:41 Order name: CBC with Automated Diff EDMS 11/17 20:41 Order name: Lipid Profile EDMS 11/17 20:41 Order name: Lipid Profile EDMS 11/17 20:41 Order name: PTT, Activated Partial Thromb EDMS 11/17 20:41 Order name: PTT, Activated Partial Thromb EDMS 11/17 17:36 Order name: Extremity Venous Uni Ltd US; Complete Time: 18:35 rt 11/17 17:36 Order name: EKG; Complete Time: 17:36 rt 11/17 17:36 Order name: Accucheck; Complete Time: 19:41 rt 11/17 17:36 Order name: Cardiac monitoring; Complete Time: 19:41 rt 11/17 17:36 Order name: EKG - Nurse/Tech; Complete Time: 19:41 rt 11/17 17:36 Order name: IV Saline Lock - Large Bore; Complete Time: 19:41 rt 11/17 17:36 Order name: Labs collected and sent; Complete Time: 19:41 rt 11/17 17:36 Order name: O2 Per Protocol; Complete Time: 19:41 rt 11/17 17:36 Order name: O2 Sat Monitoring; Complete Time: 19:41 rt 11/17 17:36 Order name: Vital Signs; Complete Time: 19:41 rt EC:09 Rate is 76 beats/min. Rhythm is regular, Normal Sinus Rhythm with No ectopy. QRS Cade rt is Normal. SD interval is normal. QRS interval is normal. QT interval is normal. No Q waves. T waves are Normal. No ST changes noted. Interpreted by me. Administered Medications: 19:40 Drug: Ketorolac IVP 15 mg IVP once Route: IVP; Site: left antecubital; rg5 20:02 Follow up: Response: No adverse reaction rg5 19:40 Drug: vancoMYCIN IVPB 1 grams IVPB once over 2 hrs Route: IVPB; Infused Over: 2 hrs; rg5 Site: left antecubital; 21:45 Follow up: IV Status: Completed infusion; IV Intake: 250ml rg5 19:40 Drug: NS 0.9% IV 1000 ml IV at 1 bolus Per protocol; to be given as a bolus over 60 rg5 minutes Route: IV; Rate: 1 bolus; Site: left antecubital; 22:02 Follow up: IV Status: Completed infusion; IV Intake: 1000ml rg5 Disposition Summary: 11/17/24 20:04 Hospitalization Ordered Notes: Hospitalization Status: Inpatient Admission rt Provider: Prince Miah rt [facility] rt Condition: Stable rt Problem: new rt Symptoms: are unchanged rt Bed/Room Type: Standard rt Room Assignment: 206(11/17/24 20:50) rv1 Diagnosis - Right lower extremity cellulitis rt - Sepsis rt Forms: - Medication Reconciliation Form rt - SBAR form rt - Leadership Thank You Letter rt Critical care time excluding procedures: 20:17 Critical care time: Bedside Care: 30 minutes, Consultation: 5 minutes. Total time: 35 rt minutes Signatures: Dispatcher [employer] Eric Rader, RN RN jb4 Eyad Veroinca MD MD rt Brooklyn Leong rv1 Jesse Mancilla, RN RN rg5 Corrections: (The following items were deleted from the chart) 17:36 17:36 BLOOD CULTURE*+BA.LAB.BRZ ordered. EDMS EDMS 17:36 17:36 CBC+H.LAB.BRZ ordered. EDMS EDMS 17:36 17:36 COMPREHENSIVE METABOLIC PANEL+C.LAB.BRZ ordered. EDMS EDMS 17:36 17:36 LACTATE+C.LAB.BRZ ordered. EDMS EDMS 17:36 17:36 PROTIME (+INR)+COAG.LAB.BRZ ordered. EDMS EDMS 36 17:36 PTT, ACTIVATED+COAG.LAB.BRZ ordered. EDMS EDMS 20:50 20:04 rt rv1
--- NOTE | 2024-11-17 20:04 | ER ---
Nurse's Notes [facility] Name: Donato Anderson Age: 29 yrs Sex: Male : 1995 Arrival Date: 11/17/2024 Time: 16:36 Bed 16 Private MD: Diagnosis: Right lower extremity cellulitis;Sepsis Presentation: 11/17 17:24 Chief complaint: Patient states: I started off this morning having chills, that jb4 progressed to body aches and sweating. My right leg is swollen and warm to the touch. I took tylenol around 4pm. Coronavirus screen: At this time, the client does not indicate any symptoms associated with coronavirus-19. Ebola Screen: No symptoms or risks identified at this time. Initial Sepsis Screen: Does the patient meet any 2 criteria? No. Patient's initial sepsis screen is negative. Does the patient have a suspected source of infection? No. Patient's initial sepsis screen is negative. Risk Assessment: Do you want to hurt yourself or someone else? Patient reports no desire to harm self or others. Onset of symptoms was November 17, 2024. Transition of care: patient was not received from another setting of care. 17:24 Method Of Arrival: Ambulatory jb4 17:24 Acuity: NEFTALY 3 jb4 Triage Assessment: 17:26 General: Appears in no apparent distress. uncomfortable, ill, obese, Behavior is calm, jb4 cooperative. Pain: Complains of pain in right serra Pain does not radiate. Pain currently is 7 out of 10 on a pain scale. Quality of pain is described as stiff Pain began 0800. Neuro: Level of Consciousness is awake, alert, obeys commands, Oriented to person, place, time, situation. Cardiovascular: Patient's skin is warm and dry. Respiratory: Airway is patent Respiratory effort is even, unlabored, Respiratory pattern is regular, symmetrical. Derm: Skin is intact, Skin is clammy, Skin is pale, Skin temperature is warm swelling, redness, and warmth noted to the right lower extremity. Musculoskeletal: Circulation, motion, and sensation intact. Range of motion: intact in all extremities. Historical: - Allergies: 17:26 PENICILLINS; jb4 17:26 unknown antibiotics; jb4 - PMHx: 17:26 Asthma; Cellulitis; Obesity; Sleep Apnea; jb4 - PSHx: 17:26 vein ablation to legs; jb4 - Immunization history:: Adult Immunizations up to date. - Infectious Disease History:: Denies. - Social history:: Smoking status: Patient denies any tobacco usage or history of. - Family history:: not pertinent. Screenin:04 [facility] ED Fall Risk Assessment (Adult) History of falling in the last 3 months, rg5 including since admission No falls in past 3 months (0 pts) Confusion or Disorientation No (0 pts) Intoxicated or Sedated No (0 pts) Impaired Gait No (0 pts) Mobility Assist Device Used No (0 pt) Altered Elimination No (0 pt) Score/Fall Risk Level 0 - 2 = Low Risk Oriented to surroundings, Maintained a safe environment, Hourly rounding (assess needs \T\ fall precautionary measures) done. Abuse screen: Denies threats or abuse. Nutritional screening: No deficits noted. Tuberculosis screening: No symptoms or risk factors identified. Assessment: 19:00 General: Appears uncomfortable, Behavior is calm, cooperative. Neuro: No deficits cm10 noted. Level of Consciousness is awake, alert, obeys commands, Oriented to person, place, time, situation, Appropriate for age. Respiratory: No deficits noted. Airway is patent Respiratory effort is even, unlabored, Respiratory pattern is regular, symmetrical. Derm: Redness and swelling noted to patient's right lower leg. 20:04 Reassessment: No changes from previously documented assessment. Patient and/or family rg5 updated on plan of care and expected duration. Pain level reassessed. Patient is alert, oriented x 3, equal unlabored respirations, skin warm/dry/pink. Vital Signs: 17:24 BP 108 / 65; Pulse 88; Resp 16; Temp 98.3(O); Pulse Ox 96% ; Weight 215.46 kg (R); jb4 Height 5 ft. 5 in. (R); Pain 7/10; 19:10 BP 125 / 66; Pulse 76; Resp 19; Pulse Ox 94% on R/A; cm10 20:06 BP 118 / 75; Pulse 78; Resp 19; Temp 98(O); Pulse Ox 98% on R/A; Pain 0/10; rg5 17:24 Body Mass Index 79.04 (215.46 kg, 165.1 cm) jb4 17:24 Pain Scale: Adult jb4 20:06 Pain Scale: Adult rg5 [place] Coma Score: 20:04 Eye Response: spontaneous(4). Motor Response: obeys commands(6). Verbal Response: rg5 oriented(5). Total: 15. ED Course: 16:40 Patient arrived in ED. mr 16:57 Eyad Veronica MD is Attending Physician. rt 17:26 Triage completed. jb4 17:26 Arm band placed on right wrist. jb4 18:28 Extremity Venous Uni Ltd US In Process Unspecified. EDMS 19:00 Patient has correct armband on for positive identification. Bed in low position. Call cm10 light in reach. Provided Education on: ER process and procedures.. 19:00 Initial lab(s) drawn, by me, sent to lab. First set of blood cultures drawn by me. cm10 Inserted saline lock: 20 gauge in left antecubital area, using aseptic technique. Blood collected. Flushed with 10 mL NS. 19:40 Jesse Mancilla, ANGEL is Primary Nurse. rg5 19:41 EKG done, by ED staff, reviewed by Eyad Veronica MD. sa1 20:03 Prince Dooley MD is Hospitalizing Provider. rt 20:04 Door closed. Noise minimized. Warm blanket given. rg5 20:04 No provider procedures requiring assistance completed. rg5 20:04 Patient admitted, IV remains in place. intact, No redness/swelling at site. rg5 Administered Medications: 19:40 Drug: Ketorolac IVP 15 mg IVP once Route: IVP; Site: left antecubital; rg5 20:02 Follow up: Response: No adverse reaction rg5 19:40 Drug: vancoMYCIN IVPB 1 grams IVPB once over 2 hrs Route: IVPB; Infused Over: 2 hrs; rg5 Site: left antecubital; 21:45 Follow up: IV Status: Completed infusion; IV Intake: 250ml rg5 19:40 Drug: NS 0.9% IV 1000 ml IV at 1 bolus Per protocol; to be given as a bolus over 60 rg5 minutes Route: IV; Rate: 1 bolus; Site: left antecubital; 22:02 Follow up: IV Status: Completed infusion; IV Intake: 1000ml rg5 Medication: 20:04 VIS not applicable for this client. rg5 Intake: 21:45 IV: 250ml; Total: 250ml. rg5 22:02 IV: 1000ml; Total: 1250ml. rg5 Outcome: 20:04 Decision to Hospitalize by Provider. rt 22:01 Admitted to Med/surg accompanied by tech, via stretcher, rg5 22:01 Condition: stable 22:01 Instructed on the need for admit, Demonstrated understanding of instructions, 22:03 Patient left the ED. rg5 Signatures: Dispatcher [employer] EDMS Marilyn Tripp, Reg Reg mr Eric Lauren, RN RN jb4 Eyad Veronica MD MD rt Lupe Delong, RN RN cm10 Jesse Mancilla RN RN rg5 Sultan Anup [facility]
--- NOTE | 2024-11-17 20:43 | P.HP ---
Certification for Inpatient Patient admitted to: Inpatient With expected LOS: >2 Midnights Practitioner: I am a practitioner with admitting privileges, knowledge of patient current condition, hospital course, and medical plan of care. Services: Services provided to patient in accordance with Admission requirements found in Title 42 Section 412.3 of the Code of Federal Regulations Patient History Date of Service: 11/17/24 Reason for admission: RLE cellulitis History of Present Illness: Patient is a 29-year-old male with morbid obesity. He presented to the ER with an acutely worsening right lower extremity cellulitis. Patient has significant edema and redness compared to the contralateral side. The onset of symptoms was this morning and has been progressively worsening. He first developed chills and some subjective fever. Doppler ultrasound in the ER was negative. Patient denies any recent trauma. Allergies No Known Allergies Allergy (Verified 06/21/20 03:16) Home Medications: Amox/Clavulanate [Augmentin 875-125 Tab] 1 each PO BID #20 tab 11/02/20 Doxycycline Hyclate [Vibramycin] 100 mg PO BID #14 capsule 11/02/20 - Past Medical/Surgical History Diabetic: No -: asthma -: sleep apnea - Social History Alcohol use: No CD- Drugs: No Caffeine use: Yes Physical Examination - Physical Exam General: Alert, Cooperative, Obese (Morbidly obese) HEENT: Atraumatic, Normocephalic Respiratory: Clear to auscultation bilaterally, Normal air movement Cardiovascular: Regular rate/rhythm, Normal S1 S2, Edema (Right lower extremity edema) Integumentary: Tenderness/swelling, Erythema, Warmth Neurological: Normal speech - Studies Laboratory Data (last 24 hrs) 11/17/24 11/17/24 11/17/24 19:00 19:00 19:00 WBC 22.60 H Hgb 14.6 Hct 43.2 Plt Count 262 PT 15.7 H INR 1.50 APTT 34.3 Sodium 135 L Potassium 3.9 BUN 15 Creatinine 1.23 Glucose 117 H Total Bilirubin 1.6 H AST 22 ALT 39 Alkaline Phosphatase 61 Assessment and Plan - Problems (Diagnosis) (1) Cellulitis of right lower extremity Current Visit: Yes Status: Acute (2) Morbid obesity Current Visit: Yes Status: Acute (3) Sepsis Current Visit: Yes Status: Acute - Plan Assessment This is a 29-year-old male with morbid obesity who is being admitted after he presented with an acutely worsening right lower extremity erythema and swelling. He meets criteria for sepsis. He is being admitted with a working diagnosis of right lower extremity cellulitis. Venous Doppler ultrasound of the right lower extremity was negative. Sepsis Right lower extremity cellulitis Morbid obesity Plan: Will admit inpatient Start IV fluid and antibiotics. Will treat with vancomycin and cefepime Follow blood cultures Multimodal pain control Monitor response Patient is full code - Advance Directives Does patient have a Living Will: No Does patient have a Durable POA for Healthcare: No
[2024-11-17] MEDS ORDERED: VANCOMYCIN 1 GM in NA CHLORIDE 0.9% 250 ML IVPB SCH (21:00)
[2024-11-17] MEDS: NA CHLORIDE 0.9% 1,000 ML IV SCH (22:12)
[2024-11-17] MEDS: CEFEPIME 1 GM in NA CHLORIDE 0.9% 100 ML IV SCH (22:12)
[2024-11-17] MEDS: NA CHLORIDE 0.9% 500 ML ONE (22:47)
[2024-11-17] MEDS: VANCOMYCIN 1 GM/VIAL ONE (22:48)
[2024-11-17] MEDS: VANCOMYCIN 2 GM in NA CHLORIDE 0.9% 500 ML IVPB ONE (23:02)
[2024-11-17] MEDS: ONDANSETRON 4 MG/2 ML VIAL IV PRN (23:07)
[2024-11-17] MEDS ORDERED: CETIRIZINE HCL 5 MG TABLET PO PRN (23:56)
[2024-11-17] MEDS ORDERED: Albuterol Inhaler **OWN MED IH PRN (23:56)
[2024-11-18] MEDS: PROMETHAZINE INJ 25 MG/ML AMP IV PRN (04:11)
[2024-11-18 05:09] LABS: Absolute Basophils 0.1 K/uL (0-0.5); Absolute Lymphocytes (CBC) 0.6 K/uL (0.7-4.9); Absolute Monocytes 0.6 K/uL (0.1-1.3); Absolute Neutrophil 15.6 K/uL (1.8-8.0); Basophils % 0.4 % (0-1.3); Hematocrit 37.4 % (39.6-49.0); Hemoglobin 13.1 g/dL (13.6-17.9); Lymphocytes % 3.8 % (15.3-44.8); MCH 31.9 pg (27.0-35.0); MCHC 34.9 g/dL (32.0-36.0); MCV 91.3 fL (80-100); MPV 8.2 fL (7.6-11.3); Monocytes % 3.4 % (3.3-12.3); Neutrophils % 92.4 % (41.7-73.7); Platelets 201 thou/uL (152-406); Red Cell Distribution Width 15.5 % (12.1-15.2)
--- NOTE | 2024-11-18 06:55 | P.PN ---
Date of Service: 11/18/24 Subjective: calf feels tight/swollen but overall feels improvement no worsening ROS: 10 point ROS as noted above, otherwise negative Physical Exam: GEN: Alert, oriented, NAD CV: Regular rate and rhythm, RLE edema Pulm: Nonlabored respirations on room air, clear bilaterally Integumentary: Warmth, swelling, erythema circumferential from below knee to ankle/dorsum of foot, some erythema of medial thigh (right) Neuro: Normal speech, normal affect Problem List: Sepsis secondary to RLE cellulitis Nausea/vomiting Anxiety/Depression Morbid obesity Hx of asthma Hx of obstructive sleep apnea Sepsis secondary to RLE cellulitis Nausea/vomiting on admission, presents with worsening RLE swelling, pain, erythema associated with subjective fever/chills/body aches. Venous u/s (11/17): no DVT continue empiric cefepime / vanc (11/17-) follow blood cultures leukocytosis improving continue IV fluids pain control PRN phenergan Anxiety/Depression Morbid obesity Hx of asthma Hx of obstructive sleep apnea confirm home meds, restart as appropriate uses CPAP at night Code: Full Dispo: Home, ~3 days Pending leukocytosis improves, afebrile > 24 hours Time Spent Managing Pts Care (In Minutes): 55
[2024-11-18 07:15] LABS: Anion Gap 12.2 mEq/L (5.0-15.0); Potassium 3.2 mEq/L (3.5-5.1)
[2024-11-18 08:40] LABS: Blood Morphology Comment NOT SEEN (NOT SEEN); Platelet Estimate ADEQ; White Blood Cell Scan OK (OK)
[2024-11-18] MEDS: FLUTICASONE PROPION IH SCH (09:00)
[2024-11-18] MEDS: SALMETEROL IH SCH (09:00)
[2024-11-18] MEDS: BUPROPRION HCL S.R. 150MG TAB PO SCH (09:03)
[2024-11-18] MEDS: VANCOMYCIN 2 GM in NA CHLORIDE 0.9% 500 ML IVPB SCH (11:59)
[2024-11-18] MEDS: ACETAMINOPHEN 500 MG TAB PO PRN (18:41)
[2024-11-18] MEDS: MORPHINE 2 MG/ML SYR IV PRN (22:26)
[2024-11-19 05:57] LABS: Anion Gap 8.5 mEq/L (5.0-15.0); Magnesium 2.3 mg/dL (1.6-2.4); Potassium 3.5 mEq/L (3.5-5.1)
[2024-11-19 06:03] LABS: Absolute Monocytes 0.7 K/uL (0.1-1.3); Absolute Neutrophil 8.3 K/uL (1.8-8.0); Basophils % 0.2 % (0-1.3); Eosinophils % 0.5 % (0-4.4); Hematocrit 34.5 % (39.6-49.0); Lymphocytes % 9.6 % (15.3-44.8); MCH 31.8 pg (27.0-35.0); MPV 8.6 fL (7.6-11.3); Monocytes % 6.6 % (3.3-12.3); Neutrophils % 83.1 % (41.7-73.7); Platelets 180 thou/uL (152-406); RBC Red Blood Cell Count 3.78 M/uL (4.33-5.43); Red Cell Distribution Width 15.4 % (12.1-15.2)
--- NOTE | 2024-11-19 09:48 | P.PN ---
Date of Service: 11/19/24 Subjective: feeling some overall improvement today skin not as thick, hard. +swelling improving no acute events overnight afebrile ROS: 10 point ROS as noted above, otherwise negative Physical Exam: GEN: Alert, oriented, NAD CV: Regular rate and rhythm, RLE edema Pulm: Nonlabored respirations on room air, clear bilaterally Integumentary: Warmth, swelling, mild erythema circumferential from below knee to ankle/dorsum of foot, some erythema of medial thigh (right) Problem List: Sepsis secondary to RLE cellulitis Nausea/vomiting, improved Anxiety/Depression Morbid obesity Hx of asthma Hx of obstructive sleep apnea Sepsis secondary to RLE cellulitis Nausea/vomiting, improved on admission, presents with worsening RLE swelling, pain, erythema associated with subjective fever/chills/body aches. Venous u/s (11/17): no DVT continue empiric cefepime / vanc (11/17-) follow blood cultures leukocytosis improving dc IVF pain control PRN phenergan moderate improvement still with induration of posterior RLE, erythema improving, edema improving Anxiety/Depression Morbid obesity Hx of asthma Hx of obstructive sleep apnea continue home meds continue home CPAP at night Code: Full Dispo: Home, ~2 days Pending further improvement, afebrile > 24 hours. cultures Time Spent Managing Pts Care (In Minutes): 55
[2024-11-19] MEDS: CEFAZOLIN SODIUM 2 GM in NA CHLORIDE 0.9% 100 ML IVPB SCH (17:55)
[2024-11-20 06:32] LABS: Absolute Eosinophils 0.1 K/uL (0-0.5); Absolute Lymphocytes (CBC) 1.2 K/uL (0.7-4.9); Absolute Monocytes 0.5 K/uL (0.1-1.3); Absolute Neutrophil 6.1 K/uL (1.8-8.0); Basophils % 0.6 % (0-1.3); Eosinophils % 1.3 % (0-4.4); Hematocrit 33.3 % (39.6-49.0); Hemoglobin 11.6 g/dL (13.6-17.9); Lymphocytes % 15.4 % (15.3-44.8); MCH 31.8 pg (27.0-35.0); MCHC 34.9 g/dL (32.0-36.0); MCV 91.1 fL (80-100); MPV 8.7 fL (7.6-11.3); Monocytes % 5.8 % (3.3-12.3); Neutrophils % 76.9 % (41.7-73.7); Platelets 187 thou/uL (152-406); RBC Red Blood Cell Count 3.66 M/uL (4.33-5.43); Red Cell Distribution Width 15.5 % (12.1-15.2)
[2024-11-20 06:42] LABS: Anion Gap 6.6 mEq/L (5.0-15.0); Magnesium 2.3 mg/dL (1.6-2.4); Potassium 3.6 mEq/L (3.5-5.1)
--- NOTE | 2024-11-20 09:35 | P.PN ---
Date of Service: 11/20/24 Subjective: right leg not as painful Easy to ambulate, was able to get up and take a shower today Induration slightly improved. +less tender. Erythema improving. afebrile ROS: 10 point ROS as noted above, otherwise negative Physical Exam: GEN: Alert, oriented, NAD CV: Regular rate and rhythm, RLE edema Pulm: Nonlabored respirations on room air, clear bilaterally Integumentary: less induration of posterior RLE, erythema improving, edema improving, slight erythema medial right thigh improving Problem List: Sepsis secondary to RLE cellulitis Nausea/vomiting, improved Anxiety/Depression Morbid obesity Hx of asthma Hx of obstructive sleep apnea Sepsis secondary to RLE cellulitis Nausea/vomiting, improved on admission, presents with worsening RLE swelling, pain, erythema associated with subjective fever/chills/body aches. Venous u/s (11/17): no DVT continue empiric cefepime / vanc (11/17-11/19) deescalated to IV ancef (11/19-) continue IV ancef (11/19-) follow blood cultures - NGTD leukocytosis resolved pain control PRN phenergan moderate improvement Induration of posterior RLE improving, erythema improving, edema improving Anxiety/Depression Morbid obesity Hx of asthma Hx of obstructive sleep apnea continue home meds continue home CPAP at night Code: Full Dispo: Home, ~1-2 days Pending further improvement, afebrile > 24 hours. cultures Time Spent Managing Pts Care (In Minutes): 45
[2024-11-21 05:20] VITALS: BMI 77.8
[2024-11-21 06:32] LABS: Hematocrit 34.1 % (39.6-49.0); Hemoglobin 11.8 g/dL (13.6-17.9); MCH 31.8 pg (27.0-35.0); MCHC 34.6 g/dL (32.0-36.0); MPV 8.1 fL (7.6-11.3); Platelets 238 thou/uL (152-406); RBC Red Blood Cell Count 3.71 M/uL (4.33-5.43); Red Cell Distribution Width 14.8 % (12.1-15.2)
[2024-11-21 07:25] LABS: Anion Gap 6.4 mEq/L (5.0-15.0); Magnesium 2.1 mg/dL (1.6-2.4); Potassium 3.4 mEq/L (3.5-5.1)
--- NOTE | 2024-11-21 08:08 | P.PN ---
Date of Service: 11/21/24 Subjective: right leg pain and swelling improving denies new / worsening problems 3 small loose stools yesterday. afebrile ROS: 10 point ROS as noted above, otherwise negative Physical Exam: GEN: Alert, oriented, NAD CV: Regular rate and rhythm, RLE edema Pulm: Nonlabored respirations on room air, clear bilaterally Integumentary: mild erythema of posterior RLE, induration improving, no discharge. Problem List: Sepsis secondary to RLE cellulitis Nausea/vomiting, improved Anxiety/Depression Morbid obesity Hx of asthma Hx of obstructive sleep apnea Sepsis secondary to RLE cellulitis Nausea/vomiting, improved on admission, presents with worsening RLE swelling, pain, erythema associated with subjective fever/chills/body aches. Venous u/s (11/17): no DVT continue empiric cefepime / vanc (11/17-11/19) deescalated to IV ancef (11/19-) continue IV ancef (11/19-) follow blood cultures - NGTD leukocytosis resolved probiotic added 2/3 pain control PRN phenergan moderate improvement Induration of posterior RLE improving, erythema improving, edema improving RLE skin remains thick, red but improving. continue IV abx for ~1 day. Anxiety/Depression Morbid obesity Hx of asthma Hx of obstructive sleep apnea continue home meds continue home CPAP at night Code: Full Dispo: Home, tomorrow Pending 1 more day of IV abx Time Spent Managing Pts Care (In Minutes): 45
[2024-11-21] MEDS: LACTOBACILLUS/ACIDOPHILUS TAB PO SCH (08:34)
[2024-11-22 04:50] LABS: Absolute Eosinophils 0.2 K/uL (0-0.5); Absolute Lymphocytes (CBC) 1.5 K/uL (0.7-4.9); Absolute Monocytes 0.5 K/uL (0.1-1.3); Absolute Neutrophil 4.3 K/uL (1.8-8.0); Basophils % 0.3 % (0-1.3); Eosinophils % 3.4 % (0-4.4); Hemoglobin 12.1 g/dL (13.6-17.9); Lymphocytes % 22.7 % (15.3-44.8); MCH 31.4 pg (27.0-35.0); MCHC 34.7 g/dL (32.0-36.0); MCV 90.5 fL (80-100); MPV 8.3 fL (7.6-11.3); Monocytes % 7.7 % (3.3-12.3); Neutrophils % 65.9 % (41.7-73.7); Platelets 242 thou/uL (152-406); RBC Red Blood Cell Count 3.87 M/uL (4.33-5.43); Red Cell Distribution Width 15.2 % (12.1-15.2)
[2024-11-22 05:07] LABS: Albumin 2.1 g/dL (3.4-5.0); Anion Gap 6.7 mEq/L (5.0-15.0); Phosphorus 3.6 mg/dL (2.5-4.9); Potassium 3.7 mEq/L (3.5-5.1)
[2024-11-22 08:47] VITALS: TEMP 98
[2024-11-22] MEDS: POTASSIUM CL SA 10 MEQ TAB PO ONE (08:52)
--- NOTE | 2024-11-22 12:31 | EKG ---
Test Date: 2024-11-17 Test Time: 19:40:38 Garnett Mechanic: MEASUREMENT RESULTS: Intervals: Rate: 76 OH: 146 QRSD: 102 QT: 372 QTc: 418 Powersite: P: 46 OH: 146 QRS: 2 T: 48 INTERPRETIVE STATEMENTS: Normal sinus rhythm Normal ECG Compared to ECG 08/22/2019 17:39:52 No significant changes Electronically Signed On 11-22-24 12:21:22 CONTROL INSPECTOR by Pavan Ricardo
[2024-11-22 12:46] VITALS: BP 149/93
--- NOTE | 2024-11-22 13:47 | P.DS ---
Admission Date: 11/17/24 Discharge Date: 11/22/24 Disposition: ROUTINE DISCHARGE Discharge Condition: FAIR Reason for Admission: RLE cellulitis Hospital Course: Problem List: Sepsis secondary to RLE cellulitis Nausea/vomiting, improved Anxiety/Depression Morbid obesity Hx of asthma Hx of obstructive sleep apnea Patient presents with RLE swelling, pain, erythema associated with subjective fever/chills/body aches secondary to right lower extremity cellulitis. Patient also had significant leukocytosis. Venous ultrasound was negative for DVT. Patient was started on empiric IV antibiotics and had improvement of his symptoms. Lower extremity swelling, erythema, induration significantly improved and almost resolved with antibiotics. IV cefepime / vancomycin was deescalated to IV ancef and continued with daily improvement. Patient was feeling better, afebrile > 24 hours, leukocytosis resolved, lower extremity pain and swelling improved, and deemed stable for discharge. Patient is to complete 7 days of oral Levaquin. Vital Signs/Physical Exam: Temp Pulse Resp BP Pulse Ox 98.0 F 76 18 149/93 H 96 11/22/24 12:00 11/22/24 12:00 11/22/24 12:00 11/22/24 12:00 11/22/24 12:00 General: Alert, In no apparent distress, Obese HEENT: Mucous membr. moist/pink Neck: Supple, JVD not distended Respiratory: Clear to auscultation bilaterally, Normal air movement Cardiovascular: Regular rate/rhythm, Normal S1 S2, Edema (Bilateral lower extremities) Gastrointestinal: Normal bowel sounds, Soft and benign, Non-distended Integumentary: Other (Resolving erythema-leftleg) Neurological: Normal speech, Normal strength at 5/5 x4 extr Laboratory Data at Discharge: WBC 6.60 thou/uL (4.3-10.9) 11/22/24 04:33 Hgb 12.1 g/dL (13.6-17.9) L 11/22/24 04:33 Hct 35.0 % (39.6-49.0) L 11/22/24 04:33 Plt Count 242 thou/uL (152-406) 11/22/24 04:33 PT 15.7 SECONDS (9.4-12.5) H 11/17/24 19:00 INR 1.50 11/17/24 19:00 APTT 35.3 SECONDS (24.3-36.9) 11/18/24 04:52 Sodium 137 mEq/L (136-145) 11/22/24 04:33 Potassium 3.7 mEq/L (3.5-5.1) 11/22/24 04:33 BUN 9 mg/dL (7-18) 11/22/24 04:33 Creatinine 0.64 mg/dL (0.70-1.30) L 11/22/24 04:33 Glucose 97 mg/dL (74-106) 11/22/24 04:33 Phosphorus 3.6 mg/dL (2.5-4.9) 11/22/24 04:33 Magnesium 2.1 mg/dL (1.6-2.4) 11/21/24 06:02 Total Bilirubin 1.6 mg/dL (0.2-1.0) H 11/17/24 19:00 AST 22 U/L (15-37) 11/17/24 19:00 ALT 39 U/L (16-61) 11/17/24 19:00 Alkaline Phosphatase 61 U/L (45-117) 11/17/24 19:00 Triglycerides 56 mg/dL (<150) 11/18/24 04:52 Cholesterol 67 mg/dL (<200) 11/18/24 04:52 HDL Cholesterol 42 mg/dL (40-60) 11/18/24 04:52 Cholesterol/HDL Ratio 1.60 11/18/24 04:52 Home Medications: Albuterol Sulfate [Ventolin Hfa] 2 puff IH SEECOM PRN 11/17/24 Buproprion S.r. [Wellbutrin Sr*] 150 mg PO DAILY 11/17/24 Cetirizine HCl 10 mg PO DAILY PRN 11/17/24 Fluticasone Propion/Salmeterol [Wixela 250-50 Inhub] 1 puff IH BID 11/17/24 Semaglutide [Ozempic] 0.5 mg SQ EVERY 7TH DAY 11/17/24 Furosemide [Lasix] 40 mg PO DAILY PRN #30 tab 11/22/24 levoFLOXacin [Levaquin] 750 mg PO DAILY #7 tab 11/22/24 New Medications: Furosemide [Lasix] 40 mg PO DAILY PRN #30 tab PRN Reason: Leg swelling levoFLOXacin [Levaquin] 750 mg PO DAILY #7 tab Physician Discharge Instructions: Physician discharge instructions: Patient presents with worsening RLE swelling, pain, erythema associated with subjective fever/chills/body aches secondary to right lower extremity cellulitis. Venous ultrasound was negative for DVT. Patient was started on empiric IV antibiotics and had improvement of his symptoms. Lower extremity swelling, erythema, induration improvement with antibiotics. IV cefepime / vancomycin was deescalated to IV ancef and continued with daily improvement. Patient was feeling better, afebrile > 24 hours, leukocytosis resolved, lower extremity pain and swelling improved, and was deemed stable for discharge. Patient is to complete . Medications: Follow up: PCP 3-5 days Please call to schedule / confirm appointments Diet: AHA Activity: Ad gudelia Followup: Parth Luciano, [Primary Care Provider] - 1-2 Weeks Time spent managing pt's care (in minutes): 33
[2024-11-22 14:16] VITALS: O2SAT 96
== END 2024-11-22 15:29 | disposition home or self-care (01) | DRG 872 ==
LOC: ER 16:36 → 2ND 20:37
PROVIDERS: ADMIT Internal Medicine; ATTEND Internal Medicine
PROC: 5A09457 Assistance with Respiratory Ventilation, 24-96 Consecutive Hours, Continuous Positive Airway Pressure (ICD-10-PCS; principal; 2024-11-17)
DX: A41.9 Sepsis, unspecified organism (principal); Z68.45 Body mass index [BMI] 70 or greater, adult; L03.115 Cellulitis of right lower limb; E66.01 Morbid (severe) obesity due to excess calories; F41.9 Anxiety disorder, unspecified; F32.A Depression, unspecified; Z88.0 Allergy status to penicillin; Z88.1 Allergy status to other antibiotic agents; Z79.899 Other long term (current) drug therapy
CPT/HCPCS: 36415; 80048; 80053; 80061; 80069; 80202; 83605; 83735; 85025; 85027; 85610; 85730; 87040; 93005; 93971; 96365; 96366; 96375; 99285; J0692; J2270; J2405; J2550; J7030; J7040; J7050

== ENCOUNTER 2025-01-27 20:59 | Emergency (ER) | payer OTHER ==
[2025-01-27 22:53] LABS: Influenza A Ag Negative; Influenza B Ag Negative; SARS-CoV-2 Antigen Rapid Res Negative (Negative)
[2025-01-28] MEDS ORDERED: VANCOMYCIN 1 GM/VIAL ONE (02:28)
[2025-01-28] MEDS ORDERED: ONDANSETRON 4 MG/2 ML VIAL ONE (02:29)
[2025-01-28] MEDS ORDERED: NA CHLORIDE 0.9% 250 ML ONE (02:29)
[2025-01-28 03:07] LABS: Absolute Monocytes 0.4 K/uL (0.1-1.3); Absolute Neutrophil 11.4 K/uL (1.8-8.0); Basophils % 0.4 % (0-1.3); Hematocrit 40.6 % (39.6-49.0); Hemoglobin 14.1 g/dL (13.6-17.9); Lymphocytes % 7.5 % (15.3-44.8); MCH 31.2 pg (27.0-35.0); MCHC 34.7 g/dL (32.0-36.0); MCV 89.9 fL (80-100); MPV 7.8 fL (7.6-11.3); Monocytes % 3.3 % (3.3-12.3); Neutrophils % 88.8 % (41.7-73.7); Platelets 299 thou/uL (152-406); RBC Red Blood Cell Count 4.52 M/uL (4.33-5.43); Red Cell Distribution Width 14.1 % (12.1-15.2)
[2025-01-28 03:17] LABS: Albumin 3.1 g/dL (3.4-5.0); Albumin/Globulin Ratio 0.6 (1.1-1.8); Anion Gap 8.6 mEq/L (5.0-15.0); Bilirubin Total 1.1 mg/dL (0.2-1.0); Potassium 3.6 mEq/L (3.5-5.1); Protein, Total 8.1 g/dL (6.4-8.2)
[2025-01-28 04:48] LABS: Band Neutrophils 15 % (0-1); Differential Total Cells Count 100; Lymphocytes 8 % (15-42); Monocytes 3 % (0-10); Segmented Neutrophils 73 % (40-80)
[2025-01-28 04:49] LABS: Blood Morphology Comment NOT SEEN (NOT SEEN); Platelet Estimate ADEQ
--- NOTE | 2025-01-28 05:23 | EDPHYS ---
Physician Documentation [facility] Name: Donato Anderson Age: 29 yrs Sex: Male : 1995 Arrival Date: 01/27/2025 Time: 20:59 Bed 4 Private MD: ED Physician Lata Luciano HPI: 01/28 01:55 29-year-old male with history of asthma, cellulitis, obesity presents to the ED with sp3 chief complaint right lower extremity swelling and redness. He denies any direct or known trauma. He has had cellulitis in that extremity before. He denies any point immobilization, travel history, per history of DVT or PE or any other signs or symptoms on ROS at this time.. Historical: - Allergies: 01/27 22:00 PENICILLINS; jj7 22:00 unknown antibiotics; jj7 - PMHx: 22:00 Asthma; Cellulitis; Obesity; Sleep Apnea; jj7 - PSHx: 22:00 vein ablation to legs; jj7 - Immunization history:: Adult Immunizations not up to date. - Infectious Disease History:: Denies. - Social history:: Smoking status: Patient denies any tobacco usage or history of. Patient/guardian denies using alcohol, street drugs, IV drugs. ROS: 01/28 01:56 Constitutional: Negative for fever, chills, and weight loss, Eyes: Negative for injury, sp3 pain, redness, and discharge, ENT: Negative for injury, pain, and discharge, Neck: Negative for injury, pain, and swelling, Cardiovascular: Negative for chest pain, palpitations, and edema, Respiratory: Negative for shortness of breath, cough, wheezing, and pleuritic chest pain, Abdomen/GI: Negative for abdominal pain, nausea, vomiting, diarrhea, and constipation, Back: Negative for injury and pain, Neuro: Negative for headache, weakness, numbness, tingling, and seizure, Psych: Negative for depression, anxiety, suicide ideation, homicidal ideation, and hallucinations, Allergy/Immunology: Negative for hives, rash, and allergies, Endocrine: Negative for neck swelling, polydipsia, polyuria, polyphagia, and marked weight changes, All other systems are negative, Exam: 01:56 Constitutional: This is a well developed, well nourished patient who is awake, alert, sp3 and in no acute distress. Head/Face: Normocephalic, atraumatic. Eyes: Pupils equal round and reactive to light, extra-ocular motions intact. Lids and lashes normal. Conjunctiva and sclera are non-icteric and not injected. Cornea within normal limits. Periorbital areas with no swelling, redness, or edema. Neck: Trachea midline, no thyromegaly or masses palpated, and no cervical lymphadenopathy. Supple, full range of motion without nuchal rigidity, or vertebral point tenderness. No Meningismus. Chest/axilla: Normal chest wall appearance and motion. Nontender with no deformity. No lesions are appreciated. Cardiovascular: Regular rate and rhythm with a normal S1 and S2. No gallops, murmurs, or rubs. Normal PMI, no JVD. No pulse deficits. Respiratory: Lungs have equal breath sounds bilaterally, clear to auscultation and percussion. No rales, rhonchi or wheezes noted. No increased work of breathing, no retractions or nasal flaring. Abdomen/GI: Soft, non-tender, with normal bowel sounds. No distension or tympany. No guarding or rebound. No evidence of tenderness throughout. Back: No spinal tenderness. No costovertebral tenderness. Full range of motion. Neuro: Awake and alert, GCS 15, oriented to person, place, time, and situation. Cranial nerves II-XII grossly intact. Motor strength 5/5 in all extremities. Sensory grossly intact. Cerebellar exam normal. Normal gait. Psych: Awake, alert, with orientation to person, place and time. Behavior, mood, and affect are within normal limits. 01:56 Musculoskeletal/extremity: Increase circumference of the right lower extremity coupled with surrounding cellulitis. . Vital Signs: 01/27 21:55 BP 120 / 101; Pulse 93; Resp 19; Temp 98.2; Pulse Ox 97% ; Weight 213.19 kg; Height 5 jj7 ft. 5 in. ; Pain 04/27; 01/28 02:38 BP 138 / 79; Pulse 85; Resp 20; Pulse Ox 95% ; vc1 03:55 BP 137 / 72; Pulse 65; Resp 20; Pulse Ox 95% ; vc1 05:23 BP 118 / 80; Pulse 65; Resp 17; Temp 98.3(O); Pulse Ox 98% on R/A; dd2 04/11 21:55 Body Mass Index 78.21 (213.19 kg, 165.1 cm) j7 01/27 21:55 Pain Scale: Adult jj7 MDM: 01/27 22:08 Medical Screening Exam initiated sp3 01/28 01:57 Data reviewed: vital signs, nurses notes, old medical records, lab test result(s), sp3 radiologic studies. ED course: Differential diagnosis includes cellulitis, dependent edema, DVT, among others. Will also give ondansetron secondary to patient being nauseous. Vancomycin IV also ordered. Ultrasound pending.. 05:21 ED course: WBC count 12,000 with left shift with bandemia 15%. Lactate is normal and sp3 vital signs are normal patient does not have DVT on my read. Attending read pending. Patient received 1 g of vancomycin. He will be discharged on Bactrim and clindamycin with close follow-up. If not improving, we will admit for further care.. 01/27 23:48 Order name: COVID-19 Ag + Flu A+B Ag; Complete Time: 01:49 EDMS 01/28 01:55 Order name: Blood Culture Adult (2) sp3 01/28 01:55 Order name: CBC with Diff; Complete Time: 05:18 sp3 01/28 01:55 Order name: CMP; Complete Time: 05:18 sp3 01/28 01:55 Order name: Lactate w/ 2H reflex if indic.; Complete Time: 05:18 sp3 01/28 03:15 Order name: Manual Differential; Complete Time: 05:18 EDMS 01/28 01:55 Order name: US Extremity Venous Unilateral Ltd sp3 01/28 01:55 Order name: IV Saline Lock - Large Bore; Complete Time: 02:35 sp3 01/28 01:55 Order name: Labs collected and sent; Complete Time: 02:35 sp3 01/28 01:55 Order name: Vital Signs; Complete Time: 02:35 sp3 Administered Medications: 02:42 Drug: vancoMYCIN IVPB 1 grams IVPB once over 2 hrs Route: IVPB; Infused Over: 2 hrs; dd2 Site: left antecubital; 05:09 Follow up: IV Status: Completed infusion; IV Intake: 250ml dd2 02:42 Drug: Ondansetron IVP 4 mg IVP once; over 2 minutes Route: IVP; Site: left antecubital; dd2 02:57 Follow up: Response: No adverse reaction dd2 Disposition Summary: 01/28/25 05:22 Discharge Ordered Notes: Location: Home sp3 Condition: Stable sp3 Diagnosis - Cellulitis sp3 Followup: sp3 - With: Private Physician - When: Upon discharge from the Emergency Department - Reason: Continuance of care Discharge Instructions: - Discharge Summary Sheet sp3 - Cellulitis, Adult sp3 Forms: - Medication Reconciliation Form sp3 - Antibiotic Education sp3 - Prescription Opioid Use sp3 - Patient Portal Instructions sp3 - Leadership Thank You Letter sp3 Prescriptions: - Clindamycin HCl 300 mg Oral Capsule - take 1 capsule ORAL route every 6 hours for 10 days; 40 capsule; Refills: 0, sp3 Product Selection Permitted - Bactrim DS 800-160 mg Oral Tablet - take 1 tablet ORAL route every 12 hours for 10 days; 20 tablet; Refills: 0, sp3 Product Selection Permitted - ondansetron 8 mg Oral Tablet,disintegrating - take 1 tablet ORAL route every 8 hours; 20 tablet; Refills: 0, Product sp3 Selection Permitted Signatures: Dispatcher [employer] EDLata Shin MD MD sp3 J Luis Juárez RN RN jj7 BHAVIK SINGER RN RN dd2 Corrections: (The following items were deleted from the chart) 01/27 23:55 23:51 COVID-19 Ag + Flu A+B Ag+[id number].[id number] ordered. EDMS EDMS
--- NOTE | 2025-01-28 05:23 | ER ---
Nurse's Notes [facility] Name: Donato Anderson Age: 29 yrs Sex: Male : 1995 Arrival Date: 01/27/2025 Time: 20:59 Bed 4 Private MD: Diagnosis: Cellulitis Presentation: 01/27 21:55 Chief complaint: Patient states: FEVER, N/V STARTED THIS MORNING .NOT ABLE TO KEEP jj7 ANYTHING DOWN. RIGHT LEG PAIN AND ABD PAIN FROM VOMITING. BODY ACHES AND FEELS LIKE HE CAN GET CHILLS. Coronavirus screen: At this time, the client does not indicate any symptoms associated with coronavirus-19. Ebola Screen: No symptoms or risks identified at this time. Initial Sepsis Screen: Does the patient meet any 2 criteria? HR > 90 bpm. Yes Does the patient have a suspected source of infection? No. Patient's initial sepsis screen is negative. Risk Assessment: Do you want to hurt yourself or someone else? Patient reports no desire to harm self or others. Note TOOK TYLENOL THIS MORNING. Onset of symptoms was January 27, 2025. 21:55 Method Of Arrival: Ambulatory [facility] 21:55 Acuity: NEFTALY 3 jj7 Triage Assessment: 22:00 General: Appears in no apparent distress. uncomfortable, Behavior is calm, cooperative. jj7 Pain: Complains of pain in abdomen and right leg. GI: Reports lower abdominal pain, upper abdominal pain, nausea, vomiting. Historical: - Allergies: 22:00 PENICILLINS; jj7 22:00 unknown antibiotics; jj7 - PMHx: 22:00 Asthma; Cellulitis; Obesity; Sleep Apnea; jj7 - PSHx: 22:00 vein ablation to legs; jj7 - Immunization history:: Adult Immunizations not up to date. - Infectious Disease History:: Denies. - Social history:: Smoking status: Patient denies any tobacco usage or history of. Patient/guardian denies using alcohol, street drugs, IV drugs. Screenin/12 01:45 [facility] ED Fall Risk Assessment (Adult) History of falling in the last 3 months, vc1 including since admission No falls in past 3 months (0 pts) Confusion or Disorientation No (0 pts) Intoxicated or Sedated No (0 pts) Impaired Gait Yes (1 pt) Mobility Assist Device Used No (0 pt) Altered Elimination Yes (1 pt) Score/Fall Risk Level 0 - 2 = Low Risk Oriented to surroundings, Maintained a safe environment, Educated pt \T\ family on fall prevention, incl call for assistance when getting out of bed, Hourly rounding (assess needs \T\ fall precautionary measures) done. Abuse screen: Denies threats or abuse. Nutritional screening: No deficits noted. Tuberculosis screening: No symptoms or risk factors identified. Assessment: 01:45 General: Appears in no apparent distress. uncomfortable, ill, obese, Behavior is calm, vc1 cooperative, appropriate for age. Pain: Denies pain. Neuro: Level of Consciousness is awake, alert, obeys commands, Oriented to person, place, time, situation, Appropriate for age. Cardiovascular: Heart tones S1 S2 present Capillary refill < 3 seconds Patient's skin is warm and dry. Cardiovascular: Edema pt with lymphadema. Respiratory: Airway is patent Trachea midline Respiratory effort is even, unlabored, Respiratory pattern is regular, symmetrical, Breath sounds with wheezes. GI: Abdomen is obese, Reports nausea, vomiting, Patient currently denies abdominal pain, diarrhea. : No deficits noted. No signs and/or symptoms were reported regarding the genitourinary system. EENT: No deficits noted. No signs and/or symptoms were reported regarding the EENT system. Derm: Skin is intact, Skin is red, Wound noted right leg. Musculoskeletal: Circulation, motion, and sensation intact. Capillary refill < 3 seconds, Range of motion: intact in all extremities, Swelling present in right leg and left leg. 02:44 Reassessment: Patient appears in no apparent distress at this time. No changes from vc1 previously documented assessment. Patient and/or family updated on plan of care and expected duration. Pain level reassessed. Patient is alert, oriented x 3, equal unlabored respirations, skin warm/dry/pink. 03:55 Reassessment: Patient appears in no apparent distress at this time. Patient and/or vc1 family updated on plan of care and expected duration. Pain level reassessed. Patient states feeling better. Patient states symptoms have improved. Vital Signs: 01/27 21:55 BP 120 / 101; Pulse 93; Resp 19; Temp 98.2; Pulse Ox 97% ; Weight 213.19 kg; Height 5 jj7 ft. 5 in. ; Pain 7/10; 01/28 02:38 BP 138 / 79; Pulse 85; Resp 20; Pulse Ox 95% ; vc1 03:55 BP 137 / 72; Pulse 65; Resp 20; Pulse Ox 95% ; vc1 05:23 BP 118 / 80; Pulse 65; Resp 17; Temp 98.3(O); Pulse Ox 98% on R/A; dd2 01/27 21:55 Body Mass Index 78.21 (213.19 kg, 165.1 cm) [facility] 01/27 21:55 Pain Scale: Adult [facility] ED Course: 01/27 21:05 Patient arrived in ED. 6 21:54 J Luis Juárez RN is Primary Nurse. 7 21:57 Lata Luciano MD is Attending Physician. sp3 22:00 Triage completed. [facility] 22:00 Arm band placed on right wrist. [facility] 01/28 01:45 pt placed in room from [facility]. vc1 01:45 Patient has correct armband on for positive identification. Bed in low position. Call vc1 light in reach. Provided Education on: labs. Pulse ox on. NIBP on. 02:35 Blood Culture Adult (2) Sent. mm11 02:35 CBC with Diff Sent. mm11 02:35 CMP Sent. mm11 02:35 Lactate w/ 2H reflex if indic. Sent. mm11 02:35 Inserted saline lock: 22 gauge in left antecubital area, using aseptic technique. Blood mm11 collected. Flushed with 10 mL NS. 03:20 US Extremity Venous Unilateral Ltd In Process Unspecified. EDMS 05:43 No provider procedures requiring assistance completed. IV discontinued, intact, dd2 bleeding controlled, No redness/swelling at site. Pressure dressing applied. Administered Medications: 02:42 Drug: vancoMYCIN IVPB 1 grams IVPB once over 2 hrs Route: IVPB; Infused Over: 2 hrs; dd2 Site: left antecubital; 05:09 Follow up: IV Status: Completed infusion; IV Intake: 250ml dd2 02:42 Drug: Ondansetron IVP 4 mg IVP once; over 2 minutes Route: IVP; Site: left antecubital; dd2 02:57 Follow up: Response: No adverse reaction dd2 Medication: 02:41 VIS not applicable for this client. vc1 Intake: 05:09 IV: 250ml; Total: 250ml. dd2 Outcome: 05:22 Discharge ordered by . sp3 05:43 Discharged to home ambulatory, dd2 05:43 Condition: stable 05:43 Discharge instructions given to patient, Instructed on discharge instructions, follow up and referral plans. medication usage, Demonstrated understanding of instructions, follow-up care, medications, Prescriptions given X 3, 05:44 Patient left the ED. dd2 Signatures: Dispatcher [employer] EDND Lata Luciano MD MD sp3 Jackeline Barrera jj6 Zulema Tarango RN RN vc1 J Luis Juárez RN RN jj7 BHAVIK SINGER RN RN dd2 [facility] mm11 Corrections: (The following items were deleted from the chart) 01/27 22:02 21:55 Chief complaint: Patient states: FEVER, N/V STARTED THIS MORNING .NOT ABLE TO jj7 KEEP ANYTHING DOWN. RIGHT LEG PAIN AND ABD PAIN FROM VOMITING jj7
[2025-01-28 06:55] VITALS: BP 118/80; TEMP 98.3; O2SAT 98
--- NOTE | 2025-01-28 07:09 | RAD REPORT ---
EXAM: Extremity Venous Uni Ltd US Right Lower Extremity Venous Duplex Doppler HISTORY: swelling COMPARISON: None TECHNIQUE: Grayscale, color Doppler, duplex Doppler, spectral Doppler images and analysis with compre ssion and augmentation of right lower extremity veins. FINDINGS: Right common femoral, greater saphenous, femoral, deep (profunda) femoral, popliteal, posterior tibia l veins unremarkable without evidence of clot. IMPRESSION: No sonographic evidence of right lower extremity DVT. Electronically signed by: Simone Butterfield MD 01/28/2025 05:37 AM CDT Due to temporary technical issues with the [employer] reporting system, reports are being sign ed by the in-house radiologist without review as a courtesy to ensure prompt reporting the interpreting rad iologist is fully responsible for the content of the report. Transcribed Date/Time: 01/28/2025 7:09 AM
== END 2025-01-28 05:44 | disposition home or self-care (01) ==
LOC: ER 20:59
DX: L03.115 Cellulitis of right lower limb (principal); Z11.52 Encounter for screening for COVID-19
CPT/HCPCS: 96365; 87040 ×2; 85025; 36415; 83605; 80053; 93971; 96375; 99284; 96366; 87428; J3370; J2405; J7050